=== PATIENT | female | born 1950 | race Caucasian/White ===

== ENCOUNTER 2017-04-18 18:56 | Inpatient (IN) | payer MEDICARE, BC ==
--- NOTE | 2017-04-18 21:14 | EDM.PDOC ---
[id number]: SOB Time Seen by Provider: 04/18/17 19:20 Source of Information: Reports: Patient, Family History Limitations: Reports: No Limitations - History of Present Illness INITIAL COMMENTS - FREE TEXT/NARRATIVE: 58-year-old female who was recently diagnosed with DVTs, was already on Coumadin therapy but her INR last week was only 1.0. She had an ultrasound of her lower extremities 4 days ago and was found to have DVTs and started on Lovenox. Over the past 24 hour she's become short of breath. No fevers or chills , no chest pain. She has chronic renal insufficiency. Onset: Gradual (Over the past 2 days) Location: Reports: Chest Severity: Moderate Associated Symptoms: Reports: Shortness of Breath (Especially with activity). Denies: Fever/Chills, Headaches, Nausea/Vomiting Left Lower Leg Pain Score (Numeric/FACES): 2 - Related Data Allergies Allergy/AdvReac Type Severity Reaction Status Date / Time AMOS Inhibitors AdvReac Cough Verified 04/18/17 19:24 morphine AdvReac Itching Verified 04/18/17 19:24 Home Meds: Home Meds Cyclobenzaprine [Flexeril] 10 mg PO BEDTIME 08/24/16 [History] Folic Acid 1 mg PO DAILY 08/24/16 [History] Furosemide [Lasix] 20 mg PO BID 08/24/16 [History] Hydroxyurea 1,000 mg PO ASDIRECTED 08/24/16 [History] Hydroxyurea 500 mg PO ASDIRECTED 08/24/16 [History] Levothyroxine 125 mcg PO DAILY 08/24/16 [History] Metoprolol Tartrate 100 mg PO BEDTIME 08/24/16 [History] Omeprazole 20 mg PO DAILY 08/24/16 [History] Potassium Chloride [K-Tab ER] 10 meq PO DAILY 08/24/16 [History] Warfarin [Coumadin] 2.5 mg PO ASDIRECTED 08/24/16 [History] Warfarin [Coumadin] 5 mg PO ASDIRECTED 08/24/16 [History] amLODIPine [Norvasc] 5 mg PO BEDTIME 08/24/16 [History] cloNIDine [Catapres] 0.2 mg PO Q12HR 08/24/16 [History] Aspirin [Halfprin] 81 mg PO DAILY 04/18/17 [History] Enoxaparin Sodium [Lovenox] 100 mg SQ BID 04/18/17 [History] Gabapentin [Neurontin] 600 mg PO TID 04/18/17 [History] Magnesium Gluconate [Mag-G] 500 mg PO DAILY 04/18/17 [History] Pravastatin [Pravachol] 20 mg PO BEDTIME 04/18/17 [History] traMADol HCl [Tramadol HCl] 50 mg PO Q6H PRN 04/18/17 [History] Past Medical History HEENT History: Reports: Cataract, Hard of Hearing Cardiovascular History: Reports: Blood Clots/VTE/DVT, High Cholesterol, Hypertension, Other (See Below) Other Cardiovascular History: thorasic aortic stent Respiratory History: Reports: Pneumonia, Recurrent Gastrointestinal History: Reports: Cholelithiasis, Diverticulosis, GERD, GI Bleed, Hemorrhoids Genitourinary History: Reports: Chronic Renal Insuffiency Other Genitourinary History: stress incontinence [employer] History: Reports: Musculoskeletal History: Reports: Back Pain, Chronic, Fracture Neurological History: Reports: Neuropathy, 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 Endocrine/Metabolic History: Reports: Hypothyroidism Other Hematologic History: essential thrombocytosis - Past Surgical History HEENT Surgical History: Reports: Naso-Sinus Surgery, Tonsillectomy Cardiovascular Surgical History: Reports: Vascular Surgery GI Surgical History: Reports: Cholecystectomy, Hernia Repair/Other Endocrine Surgical History: Reports: None Musculoskeletal Surgical History: Reports: Carpal Tunnel Social & Family History - Tobacco Use Smoking Status *Q: Never Smoker Second Hand Smoke Exposure: No - Caffeine Use Caffeine Use: Reports: Coffee - Recreational Drug Use Recreational Drug Use: No ED ROS GENERAL - Review of Systems Review Of Systems: See Below Constitutional: Reports: Malaise. Denies: Fever, Chills Respiratory: Reports: Shortness of Breath, Cough Cardiovascular: Denies: Chest Pain GI/Abdominal: Denies: Abdominal Pain, Nausea, Vomiting Skin: Reports: Bruising Neurological: Denies: Headache ED EXAM, GENERAL - Physical Exam Exam: See Below Exam Limited By: No Limitations General Appearance: Alert, No Apparent Distress Respiratory/Chest: No Respiratory Distress, Lungs Clear Cardiovascular: Regular Rate, Rhythm, Tachycardia GI/Abdominal: Soft, Other (Obese) Extremities: Pedal Edema (Bilaterally symmetric) Neurological: Alert, Oriented Course - Vital Signs Last Recorded V/S: Last Vital Signs Temp 99.1 F 04/18/17 19:17 Pulse 70 04/19/17 01:39 Resp 20 04/19/17 01:39 BP 130/87 04/19/17 01:39 Pulse Ox 97 04/19/17 01:39 - Orders/Labs/Meds Orders: Medication Orders Aspirin (Halfprin) 81 mg PO DAILY [facility] Cyclobenzaprine HCl (Flexeril) 10 mg PO BEDTIME [facility] Folic Acid (Folic Acid) 1 mg PO DAILY [facility] Furosemide (Lasix) 20 mg PO BID [facility] Gabapentin (Neurontin) 600 mg PO TID [facility] Hydroxyurea (Hydrea) 500 mg PO SuSa [facility] Hydroxyurea (Hydrea) 1,000 mg PO MoTuWeThFr [facility] Dextrose/Sodium Chloride (Dextrose 5%-Normal Saline) 1,000 mls @ 100 mls/hr IV ASDIRECTED [facility] Last Admin: 04/19/17 01:08 Dose: 100 mls/hr Levothyroxine Sodium (Synthroid) 100 mcg PO ACBREAKFAST [facility] Levothyroxine Sodium (Levothyroxine) 25 mcg PO ACBREAKFAST [facility] Magnesium Oxide (Magnesium Oxide) 200 mg PO DAILY [facility] Non-Formulary Medication (Metoprolol Tartrate [Metoprolol Tartrate]) 100 mg PO BEDTIME [facility] Pantoprazole Sodium (Protonix) 40 mg PO ACBREAKFAST [facility] Potassium Chloride (Potassium Chloride) 10 meq PO DAILY [facility] Pravastatin Sodium (Pravachol) 20 mg PO BEDTIME [facility] Sodium Chloride (Saline Flush) 10 ml FLUSH ASDIRECTED PRN PRN Reason: Keep Vein Open Tramadol HCl (Ultram) 50 mg PO Q6H PRN PRN Reason: Pain Last Admin: 04/19/17 01:37 Dose: 50 mg Labs: Laboratory Tests 04/18/17 04/18/17 04/18/17 Range/Units 00:11 20:05 20:05 PT 13.8 H (9.5-12.0) sec INR 1.28 H (0.80-1.20) Sodium 142 140 (140-148) mmol/L Potassium 3.6 3.8 (3.6-5.2) mmol/L Chloride 103 102 (100-108) mmol/L Carbon Dioxide 32 32 (21-32) mmol/L Anion Gap 6.9 6.5 (5.0-14.0) mmol/L BUN 22 H 22 H (7-18) mg/dL Creatinine 1.4 H 1.8 H (0.6-1.0) mg/dL Est Cr Clr Drug Dosing 34.61 26.92 mL/min Estimated GFR (MDRD) 37 L 28 L (>60) Glucose 198 H 200 H (74-106) mg/dL Calcium 8.3 L 8.6 (8.5-10.1) mg/dL Meds: Medications Generic Name Dose Route Start Last Admin Trade Name Freq PRN Reason Stop Dose Admin Aspirin 81 mg 04/19/17 09:00 Halfprin PO DAILY [facility] Cyclobenzaprine HCl 10 mg 04/19/17 21:00 Flexeril PO BEDTIME [facility] Folic Acid 1 mg 04/19/17 09:00 Folic Acid PO DAILY [facility] Furosemide 20 mg 04/19/17 09:00 Lasix PO BID [facility] Gabapentin 600 mg 04/19/17 09:00 Neurontin PO TID [facility] Hydroxyurea 500 mg 04/19/17 18:00 Hydrea PO SuSa [facility] Hydroxyurea 1,000 mg 04/20/17 18:00 Hydrea PO MoTuWeThFr [facility] Dextrose/Sodium Chloride 1,000 mls @ 100 mls/hr 04/19/17 01:00 04/19/17 01:08 Dextrose 5%-Normal Saline IV 100 mls/hr ASDIRECTED [facility] Administration Levothyroxine Sodium 100 mcg 04/19/17 07:30 Synthroid PO ACBREAKFAST [facility] Levothyroxine Sodium 25 mcg 04/19/17 07:30 Levothyroxine PO ACBREAKFAST [facility] Magnesium Oxide 200 mg 04/19/17 09:00 Magnesium Oxide PO DAILY [facility] Non-Formulary Medication 100 mg 04/19/17 21:00 Metoprolol Tartrate [Metoprolol Tartrate] PO BEDTIME [facility] Pantoprazole Sodium 40 mg 04/19/17 07:30 Protonix PO ACBREAKFAST [facility] Potassium Chloride 10 meq 04/19/17 09:00 Potassium Chloride PO DAILY [facility] Pravastatin Sodium 20 mg 04/19/17 21:00 Pravachol PO BEDTIME [facility] Sodium Chloride 10 ml 04/18/17 22:32 Saline Flush FLUSH ASDIRECTED PRN Keep Vein Open Tramadol HCl 50 mg 04/19/17 01:15 04/19/17 01:37 Ultram PO 50 mg Q6H PRN Administration Pain Discontinued Medications Generic Name Dose Route Start Last Admin Trade Name Ani PRN Reason Stop Dose Admin Enoxaparin Sodium 100 mg 04/19/17 09:00 Lovenox SUBCUT BID [facility] Warfarin Sodium 5 mg 04/18/17 22:45 Coumadin PO ASDIRECTED [facility] - Re-Assessments/Exams Free Text/Narrative Re-Assessment/Exam: 04/18/17 22:42 A BMP was obtained and confirmed that her creatinine is 1.8 and GFR around 30. We're unable to get a chest CT with IV contrast to assess for PE so I discussed her condition with Dr. Salazar her primary care provider, he agreed to admit her until her anticoagulation is complete. Departure - Departure Time of Disposition: 00:26 Disposition: Admitted As Inpatient 64 Condition: Fair Clinical Impression: Shortness of breath DVT (deep venous thrombosis) Qualifiers: DVT location: lower extremity Affected thrombotic vein of extremity: popliteal Chronicity: unspecified Laterality: bilateral Qualified Code(s): I82.433 - Acute embolism and thrombosis of popliteal vein, bilateral - Discharge Information
--- NOTE | 2017-04-18 22:20 | PCM.HP ---
H&P History of Present Illness - General Date of Service: 04/18/17 Source of Information: Patient, EMS Notes Reviewed History Limitations: Reports: No Limitations - History of Present Illness Initial Comments - Free Text/Narative: Had sudden onset of shortness of breath at noon today and become worse over the next 7 hrs. She took her pulse ox and found it to be 81% and she had a heart rate of 120. She has a history of thrombocytosis and on chemo therapy on a daily basis. She has been on Coumadin for 16 years. Yesterday her INR was 1.2 and was started on Lovenox 100mg BID SQ. She has never had a similar problem before. She also had a positive ultrasound yesterday fing a DVT in the left leg. Left Lower Leg Pain Score (Numeric/FACES): 2 Back Pain Score (Numeric/FACES): 3 - Related Data Allergies/Adverse Reactions: Allergies Allergy/AdvReac Type Severity Reaction Status Date / Time AMOS Inhibitors AdvReac Cough Verified 04/19/17 06:12 morphine AdvReac Itching Verified 04/19/17 06:12 Home Medications: Home Meds Cyclobenzaprine [Flexeril] 10 mg PO BEDTIME 08/24/16 [History] Folic Acid 1 mg PO DAILY 08/24/16 [History] Furosemide [Lasix] 20 mg PO BID 08/24/16 [History] Hydroxyurea 1,000 mg PO ASDIRECTED 08/24/16 [History] Hydroxyurea 500 mg PO ASDIRECTED 08/24/16 [History] Levothyroxine 125 mcg PO DAILY 08/24/16 [History] Metoprolol Tartrate 100 mg PO BEDTIME 08/24/16 [History] Omeprazole 20 mg PO DAILY 08/24/16 [History] Potassium Chloride [K-Tab ER] 10 meq PO DAILY 08/24/16 [History] Warfarin [Coumadin] 2.5 mg PO ASDIRECTED 08/24/16 [History] Warfarin [Coumadin] 5 mg PO ASDIRECTED 08/24/16 [History] amLODIPine [Norvasc] 5 mg PO BEDTIME 08/24/16 [History] cloNIDine [Catapres] 0.2 mg PO Q12HR 08/24/16 [History] Aspirin [Halfprin] 81 mg PO DAILY 04/18/17 [History] Enoxaparin Sodium [Lovenox] 100 mg SQ BID 04/18/17 [History] Gabapentin [Neurontin] 600 mg PO TID 04/18/17 [History] Magnesium Gluconate [Mag-G] 500 mg PO DAILY 04/18/17 [History] Pravastatin [Pravachol] 20 mg PO BEDTIME 04/18/17 [History] traMADol HCl [Tramadol HCl] 50 mg PO Q6H PRN 04/18/17 [History] Past Medical History HEENT History: Reports: Cataract, Hard of Hearing Cardiovascular History: Reports: Blood Clots/VTE/DVT, High Cholesterol, Hypertension, Other (See Below) Other Cardiovascular History: thorasic aortic stent Respiratory History: Reports: Pneumonia, Recurrent Gastrointestinal History: Reports: Cholelithiasis, Diverticulosis, GERD, GI Bleed, Hemorrhoids Genitourinary History: Reports: Chronic Renal Insuffiency Other Genitourinary History: stress incontinence [employer] History: Reports: Musculoskeletal History: Reports: Back Pain, Chronic, Fracture Neurological History: Reports: Neuropathy, 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 Endocrine/Metabolic History: Reports: Hypothyroidism Other Hematologic History: essential thrombocytosis - Past Surgical History HEENT Surgical History: Reports: Naso-Sinus Surgery, Tonsillectomy Cardiovascular Surgical History: Reports: Vascular Surgery GI Surgical History: Reports: Cholecystectomy, Hernia Repair/Other Endocrine Surgical History: Reports: None Musculoskeletal Surgical History: Reports: Carpal Tunnel Social & Family History - Tobacco Use Smoking Status *Q: Never Smoker Second Hand Smoke Exposure: No - Caffeine Use Caffeine Use: Reports: Coffee - Recreational Drug Use Recreational Drug Use: No H&P Review of Systems - Review of Systems: Review Of Systems: See Below General: Reports: Weakness HEENT: Reports: No Symptoms Pulmonary: Reports: Shortness of Breath Cardiovascular: Reports: Palpitations, Dyspnea on Exertion Gastrointestinal: Reports: No Symptoms Genitourinary: Reports: No Symptoms Musculoskeletal: Reports: No Symptoms Skin: Reports: No Symptoms Psychiatric: Reports: No Symptoms Neurological: Reports: Weakness Exam - Exam Exam: See Below - Vital Signs Vital Signs: Last Vital Signs Temp 99.1 F 04/18/17 19:17 Pulse 92 04/18/17 22:05 Resp 20 04/18/17 22:05 BP 168/73 H 04/18/17 22:05 Pulse Ox 94 L 04/18/17 22:05 Weight: 250 lb - Exam General: Alert, Oriented, 4 HEENT: PERRLA, Hearing Intact, Mucosa Moist & [place], Nares Patent, Normal Nasal Septum, Posterior Pharynx Clear, Conjunctiva Clear, EOMI, EACs Clear, TMs Clear Neck: Supple, Trachea Midline, 2 Lungs: Clear to Auscultation, Normal Respiratory Effort Cardiovascular: Regular Rate GI/Abdominal Exam: Normal Bowel Sounds, Soft, Non-Tender, No Organomegaly, No Distention, No Abnormal Bruit, No Mass, Pelvis Stable Peripheral Pulses: 1+: Radial (L), Radial (R) Skin: Warm Neuro Extensive - Mental Status: Alert, Oriented x3, Normal Mood/Affect, Normal Cognition Neuro Extensive - Motor, Sensory, Reflexes: CN II-XII Intact, Normal Gait, Normal Reflexes DTR: 1+: Bicep (L), Bicep (R) Psychiatric: Alert, Normal Affect, Normal Mood - Patient Data Lab Results Last 24 hrs: Laboratory Results - last 24 hr 04/18/17 04/18/17 Range/Units 20:05 20:05 PT 13.8 H (9.5-12.0) sec INR 1.28 H (0.80-1.20) Sodium 140 (140-148) mmol/L Potassium 3.8 (3.6-5.2) mmol/L Chloride 102 (100-108) mmol/L Carbon Dioxide 32 (21-32) mmol/L Anion Gap 6.5 (5.0-14.0) mmol/L BUN 22 H (7-18) mg/dL Creatinine 1.8 H (0.6-1.0) mg/dL Est Cr Clr Drug Dosing 26.92 mL/min Estimated GFR (MDRD) 28 L (>60) Glucose 200 H (74-106) mg/dL Calcium 8.6 (8.5-10.1) mg/dL Result Diagrams: 04/20/17 04:05 04/19/17 05:15 *Q Meaningful Use (ADM) - VTE *Q VTE Criteria *Q: - Stroke *Q Stroke Criteria *Q: - AMI *Q AMI Criteria *Q: Problem List Initiated/Reviewed/Updated: Yes Assessment/Plan Comment:: ASSESSMENT/PLAN: #1. Pulmonary Embolism/DVT left leg: We are unable to do a CT OF the long because of poor kidney function. Would consider a V_Q scan on Thursday. Also consider a [place] filter. She claims she never misses a dose of Coumadin so I am unable to explain her drop in the Coumadin negative response.. #2. Thrombocytosis. Will continue with Lovenox and Coumadin. #3. Hypertension. Will continue with her meds. #4. Hypothyroidism: Will continue with supplementation. #5. HLD: Continue meds. #6. GERD: coninue with meds. #7. Chronic renal failure: #8. Obesity
[2017-04-18] MEDS ORDERED: Sodium Chloride 0.9% 10 ML Syringe FLUSH PRN (22:32)
[2017-04-18] MEDS ORDERED: Warfarin 5 MG Tab PO SCH (22:45)
[2017-04-19] MEDS: Dextrose 5%-0.9% NaCl 1,000 ML IV SCH ×2 (01:08→11:04)
[2017-04-19] MEDS: traMADol 50 MG Tab PO PRN ×4 (01:37→23:33)
[2017-04-19] MEDS: Heparin Sodium/D5W 25,000 UNITS/500 ML BAG IV SCH (08:54)
[2017-04-19] MEDS ORDERED: Enoxaparin 100 MG/1 ML Syringe SUBCUT SCH (09:00)
[2017-04-19] MEDS ORDERED: Heparin Sodium 5,000 Units/ML Vial IVPUSH ONE (09:00)
[2017-04-19] MEDS: Folic Acid 1 MG Tab PO SCH (09:14)
[2017-04-19] MEDS: Gabapentin 300 MG Cap PO SCH ×3 (09:14→20:03)
[2017-04-19] MEDS: Magnesium Oxide 400 MG Tab PO SCH (09:14)
[2017-04-19] MEDS: Pantoprazole 40 MG Tab.CR PO SCH (09:14)
[2017-04-19] MEDS: Furosemide 20 MG Tab PO SCH ×2 (09:15→14:03)
[2017-04-19] MEDS: Levothyroxine 25 MCG Tab PO SCH (09:15)
[2017-04-19] MEDS: Aspirin 81 MG Tab.EC PO SCH (09:15)
[2017-04-19] MEDS: Potassium Chloride 10 MEQ Cap.ER PO SCH (09:15)
[2017-04-19] MEDS: Levothyroxine 100 MCG Tab PO SCH (09:15)
[2017-04-19] MEDS ORDERED: Magnesium Hydroxide 400 MG/5 ML Susp 30 ML Cup PO PRN (12:26)
[2017-04-19] MEDS ORDERED: Polyethylene Glycol 3350 Powder 17 GM Packet PO PRN (12:26)
[2017-04-19] MEDS: Warfarin 5 MG Tab PO SCH (14:03)
[2017-04-19] MEDS ORDERED: Hydroxyurea 500 MG Cap PO SCH (18:00)
[2017-04-19] MEDS: Cyclobenzaprine 10 MG Tab PO SCH (20:02)
[2017-04-19] MEDS: Metoprolol Tartrate 50 MG Tab PO SCH (20:03)
[2017-04-19] MEDS: Pravastatin 20 MG Tab PO SCH (20:05)
[2017-04-19] MEDS ORDERED: HYDROXYUREA 500 MG PO SCH (21:00)
--- NOTE | 2017-04-19 22:52 | PCM.PN ---
- General Info Date of Service: 04/19/17 Functional Status: Reports: Pain Controlled - Review of Systems General: Reports: Weakness HEENT: Reports: No Symptoms Pulmonary: Reports: Shortness of Breath Cardiovascular: Reports: No Symptoms Gastrointestinal: Reports: No Symptoms Genitourinary: Reports: No Symptoms Musculoskeletal: Reports: No Symptoms Skin: Reports: No Symptoms Neurological: Reports: No Symptoms Psychiatric: Reports: No Symptoms - Patient Data Vitals - Most Recent: Last Vital Signs Temp 98 F 04/19/17 22:10 Pulse 76 04/19/17 22:10 Resp 16 04/19/17 22:10 BP 140/72 04/19/17 22:10 Pulse Ox 92 L 04/19/17 22:10 Weight - Most Recent: 251 lb 1.6 oz I&O - Last 24 Hours: Intake & Output 04/19/17 04/19/17 04/19/17 06:59 14:59 22:59 Intake Total 854 2120 Output Total 200 1500 1350 Balance 654 -1500 770 Lab Results Last 24 Hours: Laboratory Results - last 24 hr 04/18/17 04/19/17 04/19/17 Range/Units 23:04 05:15 05:15 WBC 7.6 (4.5-11.0) K/uL RBC 3.82 (3.30-5.50) M/uL Hgb 13.9 (12.0-15.0) g/dL Hct 39.0 (36.0-48.0) % MCV 102 H (80-98) fL MCH 36 H (27-31) pg MCHC 36 (32-36) % Plt Count 331 (150-400) K/uL Neut % (Auto) 73 H (36-66) % Lymph % (Auto) 17 L (24-44) % [place] % (Auto) 7 H (2-6) % Eos % (Auto) 3 (2-4) % Baso % (Auto) 1 (0-1) % PT 14.6 H (9.5-12.0) sec INR 1.35 H (0.80-1.20) APTT (27.0-36.0) sec Sodium 141 (140-148) mmol/L Potassium 3.6 (3.6-5.2) mmol/L Chloride 104 (100-108) mmol/L Carbon Dioxide 31 (21-32) mmol/L Anion Gap 6.5 (5.0-14.0) mmol/L BUN 22 H (7-18) mg/dL Creatinine 1.5 H (0.6-1.0) mg/dL Est Cr Clr Drug Dosing 32.30 mL/min Estimated GFR (MDRD) 35 L (>60) Glucose 186 H (74-106) mg/dL Calcium 8.5 (8.5-10.1) mg/dL 04/19/17 Range/Units 15:00 WBC (4.5-11.0) K/uL RBC (3.30-5.50) M/uL Hgb (12.0-15.0) g/dL Hct (36.0-48.0) % MCV (80-98) fL MCH (27-31) pg MCHC (32-36) % Plt Count (150-400) K/uL Neut % (Auto) (36-66) % Lymph % (Auto) (24-44) % [place] % (Auto) (2-6) % Eos % (Auto) (2-4) % Baso % (Auto) (0-1) % PT (9.5-12.0) sec INR (0.80-1.20) APTT 77.0 H (27.0-36.0) sec Sodium (140-148) mmol/L Potassium (3.6-5.2) mmol/L Chloride (100-108) mmol/L Carbon Dioxide (21-32) mmol/L Anion Gap (5.0-14.0) mmol/L BUN (7-18) mg/dL Creatinine (0.6-1.0) mg/dL Est Cr Clr Drug Dosing mL/min Estimated GFR (MDRD) (>60) Glucose (74-106) mg/dL Calcium (8.5-10.1) mg/dL Med Orders - Current: Current Medications Aspirin (Halfprin) 81 mg PO DAILY [facility] Last Admin: 04/19/17 09:15 Dose: 81 mg Cyclobenzaprine HCl (Flexeril) 10 mg PO BEDTIME [facility] Last Admin: 04/19/17 20:02 Dose: 10 mg Folic Acid (Folic Acid) 1 mg PO DAILY [facility] Last Admin: 04/19/17 09:14 Dose: 1 mg Furosemide (Lasix) 20 mg PO BIDDIURETIC [facility] Last Admin: 04/19/17 14:03 Dose: 20 mg Gabapentin (Neurontin) 600 mg PO TID [facility] Last Admin: 04/19/17 20:03 Dose: 600 mg Hydroxyurea (Hydrea) 1,000 mg PO MoTuWeThFr@2100 [facility] Hydroxyurea (Hydrea) 500 mg PO SuSa@2100 [facility] Last Admin: 04/19/17 20:03 Dose: 500 mg Dextrose/Sodium Chloride (Dextrose 5%-Normal Saline) 1,000 mls @ 100 mls/hr IV ASDIRECTED [facility] Last Admin: 04/19/17 11:04 Dose: 100 mls/hr Heparin Sodium/Dextrose (Heparin 25,000 Units In D5w 500 Ml) 25,000 units in 500 mls @ 33.6 mls/hr IV TITRATE [facility]; 15 UNITS/KG/HR PRN Reason: Protocol Last Titration: 04/19/17 16:05 Dose: 13 units/kg/hr, 29.12 mls/hr Levothyroxine Sodium (Synthroid) 100 mcg PO ACBREAKFAST [facility] Last Admin: 04/19/17 09:15 Dose: 100 mcg Levothyroxine Sodium (Levothyroxine) 25 mcg PO ACBREAKFAST [facility] Last Admin: 04/19/17 09:15 Dose: 25 mcg Magnesium Hydroxide (Milk Of Magnesia) 30 ml PO DAILY PRN PRN Reason: Constipation Last Admin: 04/19/17 14:02 Dose: 30 ml Magnesium Oxide (Magnesium Oxide) 200 mg PO DAILY [facility] Last Admin: 04/19/17 09:14 Dose: 200 mg Metoprolol Tartrate (Lopressor) 100 mg PO BEDTIME [facility] Last Admin: 04/19/17 20:03 Dose: 100 mg Pantoprazole Sodium (Protonix) 40 mg PO ACBREAKFAST [facility] Last Admin: 04/19/17 09:14 Dose: 40 mg Polyethylene Glycol (Miralax) 17 gm PO DAILY PRN PRN Reason: Constipation Potassium Chloride (Potassium Chloride) 10 meq PO DAILY [facility] Last Admin: 04/19/17 09:15 Dose: 10 meq Pravastatin Sodium (Pravachol) 20 mg PO BEDTIME [facility] Last Admin: 04/19/17 20:05 Dose: 20 mg Senna/Docusate Sodium (Senna Plus) 1 tab PO BID PRN PRN Reason: Constipation Last Admin: 04/19/17 14:02 Dose: 1 tab Sodium Chloride (Saline Flush) 10 ml FLUSH ASDIRECTED PRN PRN Reason: Keep Vein Open Tramadol HCl (Ultram) 50 mg PO Q6H PRN PRN Reason: Pain Last Admin: 04/19/17 17:00 Dose: 50 mg Warfarin Sodium (Coumadin) 2.5 mg PO MoWeFr@1300 [facility] Warfarin Sodium (Coumadin) 5 mg PO SuTuThSa@1300 [facility] Last Admin: 04/19/17 14:03 Dose: 5 mg Discontinued Medications Enoxaparin Sodium (Lovenox) 100 mg SUBCUT BID [facility] Heparin Sodium (Porcine) (Heparin Sodium) 5,000 units IVPUSH ONETIME ONE Stop: 04/19/17 09:01 Last Admin: 04/19/17 08:53 Dose: 5,000 units Hydroxyurea (Hydrea) 500 mg PO SuSa [facility] Hydroxyurea (Hydrea) 1,000 mg PO MoTuWeThFr [facility] Warfarin Sodium (Coumadin) 5 mg PO ASDIRECTED [facility] - Exam General: Alert, Oriented HEENT: Pupils Equal, Pupils Reactive, EOMI, Mucous Membr. Moist/[place] Neck: Supple Lungs: Clear to Auscultation, Normal Respiratory Effort Cardiovascular: Regular Rate, Regular Rhythm Extremities: Normal Inspection, Normal Range of Motion, Non-Tender, No Pedal Edema, Normal Capillary Refill Skin: Warm, Dry, Intact Neurological: No New Focal Deficit Psy/Mental Status: Alert, Normal Affect, Normal Mood - Problem List Review Problem List Initiated/Reviewed/Updated: Yes - My Orders Last 24 Hours: My Active Orders 04/19/17 01:00 Dextrose 5%-0.9% NaCl [Dextrose 5%-Normal Saline] 1,000 ml IV ASDIRECTED 04/19/17 01:15 traMADol [Ultram] 50 mg PO Q6H PRN 04/19/17 07:30 Levothyroxine 25 mcg PO ACBREAKFAST Levothyroxine [Synthroid] 100 mcg PO ACBREAKFAST Pantoprazole [ProTONIX] 40 mg PO ACBREAKFAST 04/19/17 08:00 Furosemide [Lasix] 20 mg PO BIDDIURETIC 04/19/17 08:15 Heparin Sodium/D5W [Heparin 25,000 Units in D5W 500 ML] 25,000 units in 500 ml IV TITRATE 04/19/17 09:00 Aspirin [Halfprin] 81 mg PO DAILY Folic Acid 1 mg PO DAILY Gabapentin [Neurontin] 600 mg PO TID Magnesium Oxide 200 mg PO DAILY Potassium Chloride 10 meq PO DAILY 04/19/17 12:23 Docusate Sodium/Sennosides [Senna Plus] 1 tab PO BID PRN 04/19/17 12:26 Magnesium Hydroxide [Milk of Magnesia] 30 ml PO DAILY PRN Polyethylene Glycol 3350 [MiraLAX] 17 gm PO DAILY PRN 04/19/17 13:00 Warfarin [Coumadin] 5 mg PO SuTuThSa@1300 04/19/17 21:00 Cyclobenzaprine [Flexeril] 10 mg PO BEDTIME Hydroxyurea [Hydrea] 500 mg PO SuSa@2100 Metoprolol Tartrate [Lopressor] 100 mg PO BEDTIME Pravastatin [Pravachol] 20 mg PO BEDTIME 04/19/17 22:00 aPTT [PTT,PARTIAL THROMBOPLSTIN TIME] [COAG] Timed 04/20/17 05:11 CBC WITH AUTO DIFF [HEME] Routine INR,PT,PROTHROMBIN TIME [COAG] DAILY 04/20/17 13:00 Warfarin [Coumadin] 2.5 mg PO MoWeFr@1300 04/20/17 21:00 Hydroxyurea [Hydrea] 1,000 mg PO MoTuWeThFr@2100 04/21/17 05:11 INR,PT,PROTHROMBIN TIME [COAG] DAILY 04/22/17 05:11 INR,PT,PROTHROMBIN TIME [COAG] DAILY 04/23/17 05:11 INR,PT,PROTHROMBIN TIME [COAG] DAILY 04/24/17 05:11 INR,PT,PROTHROMBIN TIME [COAG] DAILY 04/25/17 05:11 INR,PT,PROTHROMBIN TIME [COAG] DAILY - Plan Plan:: ASSESSMENT/PLAN: #1. Pulmonary Embolism/DVT left leg: Started on Heparin and continue with warfarin #2. Thrombocytosis. Will continue with chemo. #3. Hypertension. Will continue with her meds. #4. Hypothyroidism: Will continue with supplementation. #5. HLD: Continue meds. #6. GERD: coninue with meds. #7. Chronic renal failure: #8. Obesity
[2017-04-20] MEDS: Dextrose 5%-0.9% NaCl 1,000 ML IV SCH ×2 (01:05→09:47)
[2017-04-20] MEDS: Heparin Sodium/D5W 25,000 UNITS/500 ML BAG IV SCH ×2 (02:10→18:14)
[2017-04-20] MEDS ORDERED: Heparin Sodium 5,000 Units/ML Vial IVPUSH ONE (05:03)
[2017-04-20] MEDS: Pantoprazole 40 MG Tab.CR PO SCH (07:57)
[2017-04-20] MEDS: Levothyroxine 25 MCG Tab PO SCH (07:57)
[2017-04-20] MEDS: Levothyroxine 100 MCG Tab PO SCH (07:57)
[2017-04-20] MEDS: Furosemide 20 MG Tab PO SCH ×2 (09:48→15:37)
[2017-04-20] MEDS: Potassium Chloride 10 MEQ Cap.ER PO SCH (09:48)
[2017-04-20] MEDS: Gabapentin 300 MG Cap PO SCH ×3 (09:48→20:42)
[2017-04-20] MEDS: Aspirin 81 MG Tab.EC PO SCH (09:49)
[2017-04-20] MEDS: Magnesium Oxide 400 MG Tab PO SCH (09:49)
[2017-04-20] MEDS: Folic Acid 1 MG Tab PO SCH (09:49)
[2017-04-20] MEDS ORDERED: Warfarin 2.5 MG Tab PO SCH (13:00)
[2017-04-20] MEDS ORDERED: Hydroxyurea 500 MG Cap PO SCH (18:00)
--- NOTE | 2017-04-20 18:52 | PCM.PN ---
- General Info Date of Service: 04/20/17 Functional Status: Reports: Pain Controlled - Review of Systems General: Reports: No Symptoms HEENT: Reports: No Symptoms Pulmonary: Reports: Shortness of Breath, Cough Cardiovascular: Reports: No Symptoms Gastrointestinal: Reports: No Symptoms Genitourinary: Reports: No Symptoms Musculoskeletal: Reports: No Symptoms Skin: Reports: No Symptoms Neurological: Reports: No Symptoms Psychiatric: Reports: No Symptoms - Patient Data Vitals - Most Recent: Last Vital Signs Temp 96.2 F 04/20/17 15:00 Pulse 66 04/20/17 15:00 Resp 18 04/20/17 15:00 BP 115/90 04/20/17 15:00 Pulse Ox 94 L 04/20/17 18:00 Weight - Most Recent: 250 lb 9.591 oz I&O - Last 24 Hours: Intake & Output 04/20/17 04/20/17 04/20/17 06:59 14:59 22:59 Intake Total 1117 185 9436 Output Total 550 1800 600 Balance 979 -840 1052 Lab Results Last 24 Hours: Laboratory Results - last 24 hr 04/19/17 04/20/17 04/20/17 Range/Units 22:00 04:05 04:05 WBC 5.9 (4.5-11.0) K/uL RBC 3.51 (3.30-5.50) M/uL Hgb 12.1 (12.0-15.0) g/dL Hct 36.1 (36.0-48.0) % MCV 103 H (80-98) fL MCH 35 H (27-31) pg MCHC 34 (32-36) % Plt Count 297 (150-400) K/uL Neut % (Auto) 59 (36-66) % Lymph % (Auto) 25 (24-44) % Louisa % (Auto) 10 H (2-6) % Eos % (Auto) 5 H (2-4) % Baso % (Auto) 1 (0-1) % PT 14.3 H (9.5-12.0) sec INR 1.32 H (0.80-1.20) APTT 56.2 H (27.0-36.0) sec 04/20/17 04/20/17 Range/Units 04:05 11:30 WBC (4.5-11.0) K/uL RBC (3.30-5.50) M/uL Hgb (12.0-15.0) g/dL Hct (36.0-48.0) % MCV (80-98) fL MCH (27-31) pg MCHC (32-36) % Plt Count (150-400) K/uL Neut % (Auto) (36-66) % Lymph % (Auto) (24-44) % Louisa % (Auto) (2-6) % Eos % (Auto) (2-4) % Baso % (Auto) (0-1) % PT (9.5-12.0) sec INR (0.80-1.20) APTT 42.5 H 75.6 H (27.0-36.0) sec Med Orders - Current: Current Medications Amlodipine Besylate (Norvasc) 5 mg PO DAILY [facility] Aspirin (Halfprin) 81 mg PO DAILY [facility] Last Admin: 04/20/17 09:49 Dose: 81 mg Clonidine HCl (Catapres) 0.2 mg PO Q12H [facility] Cyclobenzaprine HCl (Flexeril) 10 mg PO BEDTIME [facility] Last Admin: 04/19/17 20:02 Dose: 10 mg Folic Acid (Folic Acid) 1 mg PO DAILY [facility] Last Admin: 04/20/17 09:49 Dose: 1 mg Furosemide (Lasix) 20 mg PO BIDDIURETIC [facility] Last Admin: 04/20/17 15:37 Dose: 20 mg Gabapentin (Neurontin) 600 mg PO TID [facility] Last Admin: 04/20/17 15:37 Dose: 600 mg Hydroxyurea (Hydrea) 1,000 mg PO MoTuWeThFr@2100 [facility] Hydroxyurea (Hydrea) 500 mg PO SuSa@2100 [facility] Last Admin: 04/19/17 20:03 Dose: 500 mg Dextrose/Sodium Chloride (Dextrose 5%-Normal Saline) 1,000 mls @ 100 mls/hr IV ASDIRECTED [facility] Last Admin: 04/20/17 09:47 Dose: 100 mls/hr Heparin Sodium/Dextrose (Heparin 25,000 Units In D5w 500 Ml) 25,000 units in 500 mls @ 33.6 mls/hr IV TITRATE [facility]; 15 UNITS/KG/HR PRN Reason: Protocol Last Admin: 04/20/17 18:14 Dose: 13 units/kg/hr, 29.12 mls/hr Levothyroxine Sodium (Synthroid) 100 mcg PO ACBREAKFAST [facility] Last Admin: 04/20/17 07:57 Dose: 100 mcg Levothyroxine Sodium (Levothyroxine) 25 mcg PO ACBREAKFAST [facility] Last Admin: 04/20/17 07:57 Dose: 25 mcg Magnesium Hydroxide (Milk Of Magnesia) 30 ml PO DAILY PRN PRN Reason: Constipation Last Admin: 04/19/17 14:02 Dose: 30 ml Magnesium Oxide (Magnesium Oxide) 200 mg PO DAILY [facility] Last Admin: 04/20/17 09:49 Dose: 200 mg Metoprolol Tartrate (Lopressor) 100 mg PO BEDTIME [facility] Last Admin: 04/19/17 20:03 Dose: 100 mg Pantoprazole Sodium (Protonix) 40 mg PO ACBREAKFAST [facility] Last Admin: 04/20/17 07:57 Dose: 40 mg Polyethylene Glycol (Miralax) 17 gm PO DAILY PRN PRN Reason: Constipation Potassium Chloride (Potassium Chloride) 10 meq PO DAILY [facility] Last Admin: 04/20/17 09:48 Dose: 10 meq Pravastatin Sodium (Pravachol) 20 mg PO BEDTIME [facility] Last Admin: 04/19/17 20:05 Dose: 20 mg Senna/Docusate Sodium (Senna Plus) 1 tab PO BID PRN PRN Reason: Constipation Last Admin: 04/19/17 14:02 Dose: 1 tab Sodium Chloride (Saline Flush) 10 ml FLUSH ASDIRECTED PRN PRN Reason: Keep Vein Open Tramadol HCl (Ultram) 50 mg PO Q6H PRN PRN Reason: Pain Last Admin: 04/19/17 23:33 Dose: 50 mg Warfarin Sodium (Coumadin) 2.5 mg PO MoWeFr@1300 [facility] Last Admin: 04/20/17 13:01 Dose: 2.5 mg Warfarin Sodium (Coumadin) 5 mg PO SuTuThSa@1300 [facility] Last Admin: 04/19/17 14:03 Dose: 5 mg Discontinued Medications Enoxaparin Sodium (Lovenox) 100 mg SUBCUT BID [facility] Heparin Sodium (Porcine) (Heparin Sodium) 5,000 units IVPUSH ONETIME ONE Stop: 04/19/17 09:01 Last Admin: 04/19/17 08:53 Dose: 5,000 units Heparin Sodium (Porcine) (Heparin Sodium) 1,500 units IVPUSH ONETIME ONE Stop: 04/20/17 05:04 Last Admin: 04/20/17 05:22 Dose: 1,500 units Hydroxyurea (Hydrea) 500 mg PO SuSa [facility] Hydroxyurea (Hydrea) 1,000 mg PO MoTuWeThFr [facility] Warfarin Sodium (Coumadin) 5 mg PO ASDIRECTED [facility] - Exam General: Alert HEENT: Pupils Equal, Pupils Reactive, EOMI, Mucous Membr. Moist/[place] Neck: Supple Lungs: Clear to Auscultation, Normal Respiratory Effort Cardiovascular: Regular Rate, Regular Rhythm GI/Abdominal Exam: Normal Bowel Sounds, Soft, Non-Tender, No Organomegaly, No Distention, No Abnormal Bruit, No Mass, Pelvis Stable Extremities: Normal Inspection, Normal Range of Motion, Non-Tender, No Pedal Edema, Normal Capillary Refill Skin: Warm, Dry, Intact Psy/Mental Status: Alert, Normal Affect, Normal Mood - Problem List Review Problem List Initiated/Reviewed/Updated: Yes - My Orders Last 24 Hours: My Active Orders 04/19/17 21:00 Cyclobenzaprine [Flexeril] 10 mg PO BEDTIME Hydroxyurea [Hydrea] 500 mg PO SuSa@2100 Metoprolol Tartrate [Lopressor] 100 mg PO BEDTIME Pravastatin [Pravachol] 20 mg PO BEDTIME 04/20/17 13:00 Warfarin [Coumadin] 2.5 mg PO MoWeFr@1300 04/20/17 19:00 PTT,PARTIAL THROMBOPLSTIN TIME [COAG] Routine 04/20/17 21:00 Hydroxyurea [Hydrea] 1,000 mg PO MoTuWeThFr@2100 amLODIPine [Norvasc] 5 mg PO DAILY cloNIDine [Catapres] 0.2 mg PO Q12H 04/21/17 05:11 INR,PT,PROTHROMBIN TIME [COAG] DAILY 04/22/17 05:11 INR,PT,PROTHROMBIN TIME [COAG] DAILY 04/23/17 05:11 INR,PT,PROTHROMBIN TIME [COAG] DAILY 04/24/17 05:11 INR,PT,PROTHROMBIN TIME [COAG] DAILY 04/25/17 05:11 INR,PT,PROTHROMBIN TIME [COAG] DAILY - Plan Plan:: ASSESSMENT/PLAN: #1. Pulmonary Embolism/DVT left leg: Started on Heparin and continue with warfarin. INR 1.32 #2. Thrombocytosis. Will continue with chemo. #3. Hypertension. Will continue with her meds. #4. Hypothyroidism: Will continue with supplementation. #5. HLD: Continue meds. #6. GERD: continue with meds. #7. Chronic renal failure: stable #8. Obesity
[2017-04-20] MEDS ORDERED: Heparin Sodium 5,000 Units/ML Vial ONE (20:22)
[2017-04-20] MEDS ORDERED: Heparin Sodium 5,000 Units/ML Vial IVPUSH PRN (20:26)
[2017-04-20] MEDS: traMADol 50 MG Tab PO PRN (20:36)
[2017-04-20] MEDS: HYDROXYUREA 500 MG PO SCH (20:41)
[2017-04-20] MEDS: cloNIDine 0.1 MG Tab PO SCH (20:42)
[2017-04-20] MEDS: Metoprolol Tartrate 50 MG Tab PO SCH (20:43)
[2017-04-20] MEDS: amLODIPine 5 MG Tab PO SCH (20:44)
[2017-04-20] MEDS: Pravastatin 20 MG Tab PO SCH (20:44)
[2017-04-20] MEDS: Cyclobenzaprine 10 MG Tab PO SCH (20:44)
[2017-04-21] MEDS: traMADol 50 MG Tab PO PRN ×2 (03:36→09:23)
[2017-04-21] MEDS: Pantoprazole 40 MG Tab.CR PO SCH (07:14)
[2017-04-21] MEDS: Levothyroxine 25 MCG Tab PO SCH (07:15)
[2017-04-21] MEDS: Furosemide 20 MG Tab PO SCH ×2 (07:16→13:25)
[2017-04-21] MEDS: Levothyroxine 100 MCG Tab PO SCH (07:16)
[2017-04-21] MEDS: Dextrose 5%-0.9% NaCl 1,000 ML IV SCH ×2 (07:17→19:45)
[2017-04-21] MEDS: cloNIDine 0.1 MG Tab PO SCH ×2 (09:15→20:11)
[2017-04-21] MEDS: Folic Acid 1 MG Tab PO SCH (09:18)
[2017-04-21] MEDS: Aspirin 81 MG Tab.EC PO SCH (09:18)
[2017-04-21] MEDS: Magnesium Oxide 400 MG Tab PO SCH (09:18)
[2017-04-21] MEDS: Gabapentin 300 MG Cap PO SCH ×3 (09:19→20:12)
[2017-04-21] MEDS: amLODIPine 5 MG Tab PO SCH (09:19)
[2017-04-21] MEDS: Potassium Chloride 10 MEQ Cap.ER PO SCH (09:20)
[2017-04-21] MEDS: Warfarin 5 MG Tab PO SCH (13:24)
[2017-04-21] MEDS: Heparin Sodium/D5W 25,000 UNITS/500 ML BAG IV SCH (15:28)
[2017-04-21] MEDS ORDERED: Heparin Sodium 5,000 Units/ML Vial IVPUSH ONE (15:50)
--- NOTE | 2017-04-21 17:54 | PCM.PN ---
- General Info Date of Service: 04/21/17 Functional Status: Reports: Pain Controlled - Review of Systems General: Reports: Weakness HEENT: Reports: No Symptoms Pulmonary: Reports: Shortness of Breath Cardiovascular: Reports: No Symptoms Gastrointestinal: Reports: No Symptoms Genitourinary: Reports: No Symptoms Musculoskeletal: Reports: No Symptoms Skin: Reports: No Symptoms Neurological: Reports: No Symptoms Psychiatric: Reports: No Symptoms - Patient Data Vitals - Most Recent: Last Vital Signs Temp 96.9 F 04/21/17 15:00 Pulse 69 04/21/17 15:00 Resp 18 04/21/17 15:00 BP 131/77 04/21/17 15:00 Pulse Ox 99 04/21/17 15:00 Weight - Most Recent: 250 lb 9.591 oz I&O - Last 24 Hours: Intake & Output 04/21/17 04/21/17 04/21/17 06:59 14:59 22:59 Intake Total 1873 840 Output Total 375 2000 Balance 1498 -1160 Lab Results Last 24 Hours: Laboratory Results - last 24 hr 04/20/17 04/21/17 04/21/17 Range/Units 19:00 02:30 02:30 PT 16.1 H (9.5-12.0) sec INR 1.48 H (0.80-1.20) APTT 49.7 H 74.8 H (27.0-36.0) sec 04/21/17 04/21/17 Range/Units 09:04 14:28 PT (9.5-12.0) sec INR (0.80-1.20) APTT 65.4 H 30.6 (27.0-36.0) sec Med Orders - Current: Current Medications Amlodipine Besylate (Norvasc) 5 mg PO DAILY [facility] Last Admin: 04/21/17 09:19 Dose: 5 mg Aspirin (Halfprin) 81 mg PO DAILY [facility] Last Admin: 04/21/17 09:18 Dose: 81 mg Clonidine HCl (Catapres) 0.2 mg PO Q12H [facility] Last Admin: 04/21/17 09:15 Dose: 0.2 mg Cyclobenzaprine HCl (Flexeril) 10 mg PO BEDTIME [facility] Last Admin: 04/20/17 20:44 Dose: 10 mg Folic Acid (Folic Acid) 1 mg PO DAILY [facility] Last Admin: 04/21/17 09:18 Dose: 1 mg Furosemide (Lasix) 20 mg PO BIDDIURETIC [facility] Last Admin: 04/21/17 13:25 Dose: 20 mg Gabapentin (Neurontin) 600 mg PO TID [facility] Last Admin: 04/21/17 13:25 Dose: 600 mg Hydroxyurea (Hydrea) 1,000 mg PO MoTuWeThFr@2100 [facility] Last Admin: 04/20/17 20:41 Dose: 1,000 mg Hydroxyurea (Hydrea) 500 mg PO SuSa@2100 [facility] Last Admin: 04/19/17 20:03 Dose: 500 mg Dextrose/Sodium Chloride (Dextrose 5%-Normal Saline) 1,000 mls @ 100 mls/hr IV ASDIRECTED [facility] Last Admin: 04/21/17 07:17 Dose: 100 mls/hr Heparin Sodium/Dextrose (Heparin 25,000 Units In D5w 500 Ml) 25,000 units in 500 mls @ 33.6 mls/hr IV TITRATE [facility]; 15 UNITS/KG/HR PRN Reason: Protocol Last Admin: 04/21/17 15:28 Dose: 17 units/kg/hr, 38.08 mls/hr Levothyroxine Sodium (Synthroid) 100 mcg PO ACBREAKFAST [facility] Last Admin: 04/21/17 07:16 Dose: 100 mcg Levothyroxine Sodium (Levothyroxine) 25 mcg PO ACBREAKFAST [facility] Last Admin: 04/21/17 07:15 Dose: 25 mcg Magnesium Hydroxide (Milk Of Magnesia) 30 ml PO DAILY PRN PRN Reason: Constipation Last Admin: 04/19/17 14:02 Dose: 30 ml Magnesium Oxide (Magnesium Oxide) 200 mg PO DAILY [facility] Last Admin: 04/21/17 09:18 Dose: 200 mg Metoprolol Tartrate (Lopressor) 100 mg PO BEDTIME [facility] Last Admin: 04/20/17 20:43 Dose: 100 mg Pantoprazole Sodium (Protonix) 40 mg PO ACBREAKFAST [facility] Last Admin: 04/21/17 07:14 Dose: 40 mg Polyethylene Glycol (Miralax) 17 gm PO DAILY PRN PRN Reason: Constipation Potassium Chloride (Potassium Chloride) 10 meq PO DAILY [facility] Last Admin: 04/21/17 09:20 Dose: 10 meq Pravastatin Sodium (Pravachol) 20 mg PO BEDTIME [facility] Last Admin: 04/20/17 20:44 Dose: 20 mg Senna/Docusate Sodium (Senna Plus) 1 tab PO BID PRN PRN Reason: Constipation Last Admin: 04/19/17 14:02 Dose: 1 tab Sodium Chloride (Saline Flush) 10 ml FLUSH ASDIRECTED PRN PRN Reason: Keep Vein Open Tramadol HCl (Ultram) 50 mg PO Q6H PRN PRN Reason: Pain Last Admin: 04/21/17 09:23 Dose: 50 mg Warfarin Sodium (Coumadin) 2.5 mg PO MoWeFr@1300 [facility] Last Admin: 04/20/17 13:01 Dose: 2.5 mg Warfarin Sodium (Coumadin) 5 mg PO SuTuThSa@1300 [facility] Last Admin: 04/21/17 13:24 Dose: 5 mg Discontinued Medications Enoxaparin Sodium (Lovenox) 100 mg SUBCUT BID [facility] Heparin Sodium (Porcine) (Heparin Sodium) 5,000 units IVPUSH ONETIME ONE Stop: 04/19/17 09:01 Last Admin: 04/19/17 08:53 Dose: 5,000 units Heparin Sodium (Porcine) (Heparin Sodium) 1,500 units IVPUSH ONETIME ONE Stop: 04/20/17 05:04 Last Admin: 04/20/17 05:22 Dose: 1,500 units Heparin Sodium (Porcine) (Heparin Sodium) Confirm Administered Dose 5,000 units .ROUTE .STK-MED ONE Stop: 04/20/17 20:23 Last Admin: 04/20/17 20:44 Dose: Not Given Heparin Sodium (Porcine) (Heparin Sodium) 1,500 units IVPUSH .BOLUS PRN PRN Reason: Other Last Admin: 04/20/17 20:34 Dose: 1,500 units Heparin Sodium (Porcine) (Heparin Sodium) 2,500 units IVPUSH .BOLUS ONE Stop: 04/21/17 15:51 Last Admin: 04/21/17 15:47 Dose: 2,500 units Hydroxyurea (Hydrea) 500 mg PO SuSa [facility] Hydroxyurea (Hydrea) 1,000 mg PO MoTuWeThFr [facility] Warfarin Sodium (Coumadin) 5 mg PO ASDIRECTED [facility] - Exam General: Alert, Oriented HEENT: Pupils Equal, Pupils Reactive, EOMI, Mucous Membr. Moist/[place] Neck: Supple Lungs: Clear to Auscultation, Normal Respiratory Effort Cardiovascular: Regular Rate, Regular Rhythm GI/Abdominal Exam: Normal Bowel Sounds, Soft, Non-Tender, No Organomegaly, No Distention, No Abnormal Bruit, No Mass, Pelvis Stable Extremities: Normal Inspection, Normal Range of Motion, Non-Tender, No Pedal Edema, Normal Capillary Refill Peripheral Pulses: 1+: Radial (L), Radial (R) Skin: Warm, Dry, Intact Neurological: No New Focal Deficit Psy/Mental Status: Alert, Normal Affect, Normal Mood - Problem List Review Problem List Initiated/Reviewed/Updated: Yes - My Orders Last 24 Hours: My Active Orders 04/20/17 21:00 Hydroxyurea [Hydrea] 1,000 mg PO MoTuWeThFr@2100 amLODIPine [Norvasc] 5 mg PO DAILY cloNIDine [Catapres] 0.2 mg PO Q12H 04/21/17 21:30 aPTT [PTT,PARTIAL THROMBOPLSTIN TIME] [COAG] Routine 04/22/17 05:11 INR,PT,PROTHROMBIN TIME [COAG] DAILY 04/23/17 05:11 INR,PT,PROTHROMBIN TIME [COAG] DAILY 04/24/17 05:11 INR,PT,PROTHROMBIN TIME [COAG] DAILY 04/25/17 05:11 INR,PT,PROTHROMBIN TIME [COAG] DAILY - Plan Plan:: ASSESSMENT/PLAN: #1. Pulmonary Embolism/DVT left leg: Started on Heparin and continue with warfarin. INR 1.48 #2. Thrombocytosis. Will continue with chemo. #3. Hypertension. Will continue with her meds. #4. Hypothyroidism: Will continue with supplementation. #5. HLD: Continue meds. #6. GERD: continue with meds. #7. Chronic renal failure: stable #8. Obesity
[2017-04-21] MEDS: Pravastatin 20 MG Tab PO SCH (20:12)
[2017-04-21] MEDS: HYDROXYUREA 500 MG PO SCH (20:13)
[2017-04-21] MEDS: Metoprolol Tartrate 50 MG Tab PO SCH (20:13)
[2017-04-21] MEDS: Cyclobenzaprine 10 MG Tab PO SCH (20:17)
[2017-04-22] MEDS: Heparin Sodium/D5W 25,000 UNITS/500 ML BAG IV SCH ×2 (06:11→22:03)
[2017-04-22] MEDS: Furosemide 20 MG Tab PO SCH ×2 (07:38→14:45)
[2017-04-22] MEDS: Levothyroxine 25 MCG Tab PO SCH (07:38)
[2017-04-22] MEDS: Levothyroxine 100 MCG Tab PO SCH (07:39)
[2017-04-22] MEDS: Pantoprazole 40 MG Tab.CR PO SCH (07:39)
[2017-04-22] MEDS: amLODIPine 5 MG Tab PO SCH (08:35)
[2017-04-22] MEDS: Aspirin 81 MG Tab.EC PO SCH (08:36)
[2017-04-22] MEDS: cloNIDine 0.1 MG Tab PO SCH ×2 (08:36→21:15)
[2017-04-22] MEDS: Magnesium Oxide 400 MG Tab PO SCH (08:36)
[2017-04-22] MEDS: Folic Acid 1 MG Tab PO SCH (08:37)
[2017-04-22] MEDS: Gabapentin 300 MG Cap PO SCH ×3 (08:37→21:15)
[2017-04-22] MEDS: Potassium Chloride 10 MEQ Cap.ER PO SCH (08:37)
[2017-04-22] MEDS ORDERED: Warfarin 2.5 MG Tab PO ONE (11:00)
[2017-04-22] MEDS: Dextrose 5%-0.9% NaCl 1,000 ML IV SCH (17:12)
--- NOTE | 2017-04-22 17:40 | PCM.PN ---
- General Info Date of Service: 04/22/17 Functional Status: Reports: Pain Controlled - Review of Systems General: Reports: Weakness HEENT: Reports: No Symptoms Pulmonary: Reports: Shortness of Breath Cardiovascular: Reports: No Symptoms Gastrointestinal: Reports: No Symptoms Genitourinary: Reports: No Symptoms Musculoskeletal: Reports: No Symptoms Skin: Reports: No Symptoms Neurological: Reports: No Symptoms Psychiatric: Reports: No Symptoms - Patient Data Vitals - Most Recent: Last Vital Signs Temp 96.3 F 04/22/17 15:12 Pulse 62 04/22/17 15:12 Resp 20 04/22/17 15:12 BP 136/71 04/22/17 15:12 Pulse Ox 97 04/22/17 15:12 Weight - Most Recent: 253 lb 3.2 oz I&O - Last 24 Hours: Intake & Output 04/22/17 04/22/17 04/22/17 06:59 14:59 22:59 Intake Total 1928 660 Output Total 1000 1351 Balance 928 -691 Lab Results Last 24 Hours: Laboratory Results - last 24 hr 04/21/17 04/22/17 04/22/17 Range/Units 21:30 04:10 04:10 PT 14.1 H (9.5-12.0) sec INR 1.30 H (0.80-1.20) APTT 86.1 H 63.0 H (27.0-36.0) sec 04/22/17 Range/Units 10:00 PT (9.5-12.0) sec INR (0.80-1.20) APTT 67.2 H (27.0-36.0) sec Med Orders - Current: Current Medications Amlodipine Besylate (Norvasc) 5 mg PO DAILY [facility] Last Admin: 04/22/17 08:35 Dose: 5 mg Aspirin (Halfprin) 81 mg PO DAILY [facility] Last Admin: 04/22/17 08:36 Dose: 81 mg Clonidine HCl (Catapres) 0.2 mg PO Q12H [facility] Last Admin: 04/22/17 08:36 Dose: 0.2 mg Cyclobenzaprine HCl (Flexeril) 10 mg PO BEDTIME [facility] Last Admin: 04/21/17 20:17 Dose: 10 mg Folic Acid (Folic Acid) 1 mg PO DAILY [facility] Last Admin: 04/22/17 08:37 Dose: 1 mg Furosemide (Lasix) 20 mg PO BIDDIURETIC [facility] Last Admin: 04/22/17 14:45 Dose: 20 mg Gabapentin (Neurontin) 600 mg PO TID [facility] Last Admin: 04/22/17 14:45 Dose: 600 mg Hydroxyurea (Hydrea) 1,000 mg PO MoTuWeThFr@2100 [facility] Last Admin: 04/21/17 20:13 Dose: 1,000 mg Hydroxyurea (Hydrea) 500 mg PO SuSa@2100 [facility] Last Admin: 04/19/17 20:03 Dose: 500 mg Dextrose/Sodium Chloride (Dextrose 5%-Normal Saline) 1,000 mls @ 100 mls/hr IV ASDIRECTED [facility] Last Admin: 04/22/17 17:12 Dose: 100 mls/hr Heparin Sodium/Dextrose (Heparin 25,000 Units In D5w 500 Ml) 25,000 units in 500 mls @ 33.6 mls/hr IV TITRATE [facility]; 15 UNITS/KG/HR PRN Reason: Protocol Last Titration: 04/22/17 10:37 Dose: 15 units/kg/hr, 33.6 mls/hr Levothyroxine Sodium (Synthroid) 100 mcg PO ACBREAKFAST [facility] Last Admin: 04/22/17 07:39 Dose: 100 mcg Levothyroxine Sodium (Levothyroxine) 25 mcg PO ACBREAKFAST [facility] Last Admin: 04/22/17 07:38 Dose: 25 mcg Magnesium Hydroxide (Milk Of Magnesia) 30 ml PO DAILY PRN PRN Reason: Constipation Last Admin: 04/19/17 14:02 Dose: 30 ml Magnesium Oxide (Magnesium Oxide) 200 mg PO DAILY [facility] Last Admin: 04/22/17 08:36 Dose: 200 mg Metoprolol Tartrate (Lopressor) 100 mg PO BEDTIME [facility] Last Admin: 04/21/17 20:13 Dose: 100 mg Pantoprazole Sodium (Protonix) 40 mg PO ACBREAKFAST [facility] Last Admin: 04/22/17 07:39 Dose: 40 mg Polyethylene Glycol (Miralax) 17 gm PO DAILY PRN PRN Reason: Constipation Potassium Chloride (Potassium Chloride) 10 meq PO DAILY [facility] Last Admin: 04/22/17 08:37 Dose: 10 meq Pravastatin Sodium (Pravachol) 20 mg PO BEDTIME [facility] Last Admin: 04/21/17 20:12 Dose: 20 mg Senna/Docusate Sodium (Senna Plus) 1 tab PO BID PRN PRN Reason: Constipation Last Admin: 04/19/17 14:02 Dose: 1 tab Sodium Chloride (Saline Flush) 10 ml FLUSH ASDIRECTED PRN PRN Reason: Keep Vein Open Tramadol HCl (Ultram) 50 mg PO Q6H PRN PRN Reason: Pain Last Admin: 04/21/17 09:23 Dose: 50 mg Discontinued Medications Enoxaparin Sodium (Lovenox) 100 mg SUBCUT BID [facility] Heparin Sodium (Porcine) (Heparin Sodium) 5,000 units IVPUSH ONETIME ONE Stop: 04/19/17 09:01 Last Admin: 04/19/17 08:53 Dose: 5,000 units Heparin Sodium (Porcine) (Heparin Sodium) 1,500 units IVPUSH ONETIME ONE Stop: 04/20/17 05:04 Last Admin: 04/20/17 05:22 Dose: 1,500 units Heparin Sodium (Porcine) (Heparin Sodium) Confirm Administered Dose 5,000 units .ROUTE .STK-MED ONE Stop: 04/20/17 20:23 Last Admin: 04/20/17 20:44 Dose: Not Given Heparin Sodium (Porcine) (Heparin Sodium) 1,500 units IVPUSH .BOLUS PRN PRN Reason: Other Last Admin: 04/20/17 20:34 Dose: 1,500 units Heparin Sodium (Porcine) (Heparin Sodium) 2,500 units IVPUSH .BOLUS ONE Stop: 04/21/17 15:51 Last Admin: 04/21/17 15:47 Dose: 2,500 units Hydroxyurea (Hydrea) 500 mg PO SuSa [facility] Hydroxyurea (Hydrea) 1,000 mg PO MoTuWeThFr [facility] Warfarin Sodium (Coumadin) 5 mg PO ASDIRECTED [facility] Warfarin Sodium (Coumadin) 2.5 mg PO MoWeFr@1300 [facility] Last Admin: 04/20/17 13:01 Dose: 2.5 mg Warfarin Sodium (Coumadin) 5 mg PO SuTuThSa@1300 [facility] Last Admin: 04/21/17 13:24 Dose: 5 mg Warfarin Sodium (Coumadin) 7.5 mg PO ONETIME ONE Stop: 04/22/17 11:01 Last Admin: 04/22/17 11:01 Dose: 7.5 mg - Exam General: Alert, Oriented HEENT: Pupils Equal, Pupils Reactive, EOMI, Mucous Membr. Moist/[place] Neck: Supple Lungs: Clear to Auscultation, Normal Respiratory Effort Cardiovascular: Regular Rate, Regular Rhythm Extremities: Normal Inspection, Normal Range of Motion, Non-Tender, No Pedal Edema, Normal Capillary Refill - Problem List Review Problem List Initiated/Reviewed/Updated: Yes - My Orders Last 24 Hours: My Active Orders 04/23/17 05:11 INR,PT,PROTHROMBIN TIME [COAG] DAILY 04/24/17 05:11 INR,PT,PROTHROMBIN TIME [COAG] DAILY 04/25/17 05:11 INR,PT,PROTHROMBIN TIME [COAG] DAILY - Plan Plan:: ASSESSMENT/PLAN: #1. Pulmonary Embolism/DVT left leg: Started on Heparin and continue with warfarin. INR 1.3 today have given her 7.5 mg today #2. Thrombocytosis. Will continue with chemo. #3. Hypertension. Will continue with her meds. BPO good control. #4. Hypothyroidism: Will continue with supplementation. #5. HLD: Continue meds. #6. GERD: continue with meds. #7. Chronic renal failure: stable #8. Obesity
[2017-04-22] MEDS: Metoprolol Tartrate 50 MG Tab PO SCH (21:15)
[2017-04-22] MEDS: HYDROXYUREA 500 MG PO SCH (21:16)
[2017-04-22] MEDS: Pravastatin 20 MG Tab PO SCH (21:16)
[2017-04-22] MEDS: Cyclobenzaprine 10 MG Tab PO SCH (21:22)
[2017-04-22] MEDS: traMADol 50 MG Tab PO PRN (21:22)
[2017-04-23] MEDS: Dextrose 5%-0.9% NaCl 1,000 ML IV SCH (03:20)
[2017-04-23] MEDS: traMADol 50 MG Tab PO PRN ×2 (04:20→19:43)
[2017-04-23] MEDS: Furosemide 20 MG Tab PO SCH ×2 (07:05→14:56)
[2017-04-23] MEDS: Pantoprazole 40 MG Tab.CR PO SCH (07:06)
[2017-04-23] MEDS: Levothyroxine 100 MCG Tab PO SCH (07:06)
[2017-04-23] MEDS: Levothyroxine 25 MCG Tab PO SCH (07:07)
[2017-04-23] MEDS: cloNIDine 0.1 MG Tab PO SCH ×2 (08:47→22:08)
[2017-04-23] MEDS: Gabapentin 300 MG Cap PO SCH ×3 (08:48→22:09)
[2017-04-23] MEDS: Potassium Chloride 10 MEQ Cap.ER PO SCH (08:48)
[2017-04-23] MEDS: Folic Acid 1 MG Tab PO SCH (08:48)
[2017-04-23] MEDS: Aspirin 81 MG Tab.EC PO SCH (08:48)
[2017-04-23] MEDS: Magnesium Oxide 400 MG Tab PO SCH (08:49)
[2017-04-23] MEDS: amLODIPine 5 MG Tab PO SCH (08:49)
[2017-04-23] MEDS ORDERED: Warfarin 2.5 MG Tab PO ONE (09:00)
[2017-04-23] MEDS: Heparin Sodium/D5W 25,000 UNITS/500 ML BAG IV SCH (11:32)
--- NOTE | 2017-04-23 20:22 | PCM.PN ---
- General Info Date of Service: 04/23/17 Functional Status: Reports: Pain Controlled - Review of Systems General: Reports: No Symptoms HEENT: Reports: No Symptoms Pulmonary: Reports: Shortness of Breath Cardiovascular: Reports: No Symptoms Gastrointestinal: Reports: No Symptoms Genitourinary: Reports: No Symptoms Musculoskeletal: Reports: No Symptoms Skin: Reports: No Symptoms Neurological: Reports: No Symptoms Psychiatric: Reports: No Symptoms - Patient Data Vitals - Most Recent: Last Vital Signs Temp 97.4 F 04/23/17 19:08 Pulse 93 04/23/17 19:08 Resp 16 04/23/17 19:08 BP 132/105 H 04/23/17 19:08 Pulse Ox 95 04/23/17 19:40 Weight - Most Recent: 254 lb 11.2 oz I&O - Last 24 Hours: Intake & Output 04/23/17 04/23/17 04/23/17 06:59 14:59 22:59 Intake Total 1155 877 3224 Output Total 1700 3900 Balance -199 900 -1859 Lab Results Last 24 Hours: Laboratory Results - last 24 hr 04/23/17 04/23/17 Range/Units 04:38 06:00 PT 12.9 H (9.5-12.0) sec INR 1.20 (0.80-1.20) APTT 61.7 H (27.0-36.0) sec Med Orders - Current: Current Medications Amlodipine Besylate (Norvasc) 5 mg PO DAILY [facility] Last Admin: 04/23/17 08:49 Dose: 5 mg Aspirin (Halfprin) 81 mg PO DAILY [facility] Last Admin: 04/23/17 08:48 Dose: 81 mg Clonidine HCl (Catapres) 0.2 mg PO Q12H [facility] Last Admin: 04/23/17 08:47 Dose: 0.2 mg Cyclobenzaprine HCl (Flexeril) 10 mg PO BEDTIME [facility] Last Admin: 04/22/17 21:22 Dose: 10 mg Folic Acid (Folic Acid) 1 mg PO DAILY [facility] Last Admin: 04/23/17 08:48 Dose: 1 mg Furosemide (Lasix) 20 mg PO BIDDIURETIC [facility] Last Admin: 04/23/17 14:56 Dose: 20 mg Gabapentin (Neurontin) 600 mg PO TID [facility] Last Admin: 04/23/17 14:55 Dose: 600 mg Hydroxyurea (Hydrea) 1,000 mg PO MoTuWeThFr@2100 [facility] Last Admin: 04/22/17 21:16 Dose: 1,000 mg Hydroxyurea (Hydrea) 500 mg PO SuSa@2100 [facility] Last Admin: 04/19/17 20:03 Dose: 500 mg Dextrose/Sodium Chloride (Dextrose 5%-Normal Saline) 1,000 mls @ 100 mls/hr IV ASDIRECTED [facility] Last Admin: 04/23/17 03:20 Dose: 100 mls/hr Heparin Sodium/Dextrose (Heparin 25,000 Units In D5w 500 Ml) 25,000 units in 500 mls @ 33.6 mls/hr IV TITRATE CALI; 15 UNITS/KG/HR PRN Reason: Protocol Last Admin: 04/23/17 11:32 Dose: 15 units/kg/hr, 33.6 mls/hr Levothyroxine Sodium (Synthroid) 100 mcg PO ACBREAKFAST [facility] Last Admin: 04/23/17 07:06 Dose: 100 mcg Levothyroxine Sodium (Levothyroxine) 25 mcg PO ACBREAKFAST [facility] Last Admin: 04/23/17 07:07 Dose: 25 mcg Magnesium Hydroxide (Milk Of Magnesia) 30 ml PO DAILY PRN PRN Reason: Constipation Last Admin: 04/19/17 14:02 Dose: 30 ml Magnesium Oxide (Magnesium Oxide) 200 mg PO DAILY [facility] Last Admin: 04/23/17 08:49 Dose: 200 mg Metoprolol Tartrate (Lopressor) 100 mg PO BEDTIME [facility] Last Admin: 04/22/17 21:15 Dose: 100 mg Pantoprazole Sodium (Protonix) 40 mg PO ACBREAKFAST [facility] Last Admin: 04/23/17 07:06 Dose: 40 mg Polyethylene Glycol (Miralax) 17 gm PO DAILY PRN PRN Reason: Constipation Potassium Chloride (Potassium Chloride) 10 meq PO DAILY [facility] Last Admin: 04/23/17 08:48 Dose: 10 meq Pravastatin Sodium (Pravachol) 20 mg PO BEDTIME [facility] Last Admin: 04/22/17 21:16 Dose: 20 mg Senna/Docusate Sodium (Senna Plus) 1 tab PO BID PRN PRN Reason: Constipation Last Admin: 04/19/17 14:02 Dose: 1 tab Sodium Chloride (Saline Flush) 10 ml FLUSH ASDIRECTED PRN PRN Reason: Keep Vein Open Tramadol HCl (Ultram) 50 mg PO Q6H PRN PRN Reason: Pain Last Admin: 04/23/17 19:43 Dose: 50 mg Discontinued Medications Enoxaparin Sodium (Lovenox) 100 mg SUBCUT BID [facility] Heparin Sodium (Porcine) (Heparin Sodium) 5,000 units IVPUSH ONETIME ONE Stop: 04/19/17 09:01 Last Admin: 04/19/17 08:53 Dose: 5,000 units Heparin Sodium (Porcine) (Heparin Sodium) 1,500 units IVPUSH ONETIME ONE Stop: 04/20/17 05:04 Last Admin: 04/20/17 05:22 Dose: 1,500 units Heparin Sodium (Porcine) (Heparin Sodium) Confirm Administered Dose 5,000 units .ROUTE .STK-MED ONE Stop: 04/20/17 20:23 Last Admin: 04/20/17 20:44 Dose: Not Given Heparin Sodium (Porcine) (Heparin Sodium) 1,500 units IVPUSH .BOLUS PRN PRN Reason: Other Last Admin: 04/20/17 20:34 Dose: 1,500 units Heparin Sodium (Porcine) (Heparin Sodium) 2,500 units IVPUSH .BOLUS ONE Stop: 04/21/17 15:51 Last Admin: 04/21/17 15:47 Dose: 2,500 units Hydroxyurea (Hydrea) 500 mg PO SuSa [facility] Hydroxyurea (Hydrea) 1,000 mg PO MoTuWeThFr [facility] Warfarin Sodium (Coumadin) 5 mg PO ASDIRECTED [facility] Warfarin Sodium (Coumadin) 2.5 mg PO MoWeFr@1300 [facility] Last Admin: 04/20/17 13:01 Dose: 2.5 mg Warfarin Sodium (Coumadin) 5 mg PO SuTuThSa@1300 [facility] Last Admin: 04/21/17 13:24 Dose: 5 mg Warfarin Sodium (Coumadin) 7.5 mg PO ONETIME ONE Stop: 04/22/17 11:01 Last Admin: 04/22/17 11:01 Dose: 7.5 mg Warfarin Sodium (Coumadin) 7.5 mg PO ONETIME ONE Stop: 04/23/17 09:01 Last Admin: 04/23/17 08:48 Dose: 7.5 mg - Exam General: Alert, Oriented Lungs: Clear to Auscultation, Normal Respiratory Effort Cardiovascular: Regular Rate, Regular Rhythm GI/Abdominal Exam: Normal Bowel Sounds, Soft, Non-Tender, No Organomegaly, No Distention, No Abnormal Bruit, No Mass, Pelvis Stable Extremities: Normal Inspection, Normal Range of Motion, Non-Tender, No Pedal Edema, Normal Capillary Refill - Problem List Review Problem List Initiated/Reviewed/Updated: Yes - My Orders Last 24 Hours: My Active Orders 04/24/17 05:00 INR,PT,PROTHROMBIN TIME [COAG] DAILY PTT,PARTIAL THROMBOPLSTIN TIME [COAG] Timed 04/24/17 05:11 BASIC METABOLIC PANEL,BMP [CHEM] Routine CBC WITH AUTO DIFF [HEME] Routine 04/25/17 05:00 INR,PT,PROTHROMBIN TIME [COAG] DAILY 04/26/17 05:00 INR,PT,PROTHROMBIN TIME [COAG] DAILY 04/27/17 05:00 INR,PT,PROTHROMBIN TIME [COAG] DAILY 04/28/17 05:00 INR,PT,PROTHROMBIN TIME [COAG] DAILY 04/29/17 05:00 INR,PT,PROTHROMBIN TIME [COAG] DAILY 04/30/17 05:00 INR,PT,PROTHROMBIN TIME [COAG] DAILY 05/01/17 05:00 INR,PT,PROTHROMBIN TIME [COAG] DAILY 05/02/17 05:00 INR,PT,PROTHROMBIN TIME [COAG] DAILY 05/03/17 05:00 INR,PT,PROTHROMBIN TIME [COAG] DAILY - Plan Plan:: ASSESSMENT/PLAN: #1. Pulmonary Embolism/DVT left leg: She is better as far as SOB but INR is still low. #2. Thrombocytosis. Will continue with Lovenox and Coumadin. #3. Hypertension. Will continue with her meds. #4. Hypothyroidism: Will continue with supplementation. #5. HLD: Continue meds. #6. GERD: coninue with meds. #7. Chronic renal failure: #8. Obesity
[2017-04-23] MEDS: Cyclobenzaprine 10 MG Tab PO SCH (22:08)
[2017-04-23] MEDS: HYDROXYUREA 500 MG PO SCH (22:09)
[2017-04-23] MEDS: Metoprolol Tartrate 50 MG Tab PO SCH (22:09)
[2017-04-23] MEDS: Pravastatin 20 MG Tab PO SCH (22:09)
[2017-04-24] MEDS: Dextrose 5%-0.9% NaCl 1,000 ML IV SCH (00:28)
[2017-04-24] MEDS: Heparin Sodium/D5W 25,000 UNITS/500 ML BAG IV SCH (04:45)
[2017-04-24] MEDS ORDERED: Heparin Sodium 5,000 Units/ML Vial IVPUSH ONE (05:35)
[2017-04-24] MEDS ORDERED: Heparin Sodium 5,000 Units/ML Vial ONE (05:42)
[2017-04-24] MEDS: Levothyroxine 25 MCG Tab PO SCH (07:17)
[2017-04-24] MEDS: Levothyroxine 100 MCG Tab PO SCH (07:18)
[2017-04-24] MEDS: Pantoprazole 40 MG Tab.CR PO SCH (07:19)
[2017-04-24] MEDS: Furosemide 20 MG Tab PO SCH (07:19)
[2017-04-24] MEDS: Gabapentin 300 MG Cap PO SCH (08:04)
[2017-04-24] MEDS: Magnesium Oxide 400 MG Tab PO SCH (08:05)
[2017-04-24] MEDS: Aspirin 81 MG Tab.EC PO SCH (08:05)
[2017-04-24] MEDS: Folic Acid 1 MG Tab PO SCH (08:05)
[2017-04-24] MEDS: Potassium Chloride 10 MEQ Cap.ER PO SCH (08:06)
[2017-04-24] MEDS: amLODIPine 5 MG Tab PO SCH (08:18)
[2017-04-24] MEDS: cloNIDine 0.1 MG Tab PO SCH (08:18)
[2017-04-24 08:19] VITALS: BP 131/61
--- NOTE | 2017-04-24 08:21 | PCM.PN ---
- General Info Date of Service: 04/24/17 Functional Status: Reports: Pain Controlled - Review of Systems General: Reports: Weakness Pulmonary: Reports: Shortness of Breath Cardiovascular: Reports: No Symptoms Gastrointestinal: Reports: No Symptoms Genitourinary: Reports: No Symptoms Musculoskeletal: Reports: No Symptoms Skin: Reports: No Symptoms Neurological: Reports: No Symptoms Psychiatric: Reports: No Symptoms - Patient Data Vitals - Most Recent: Last Vital Signs Temp 96.3 F 04/24/17 04:00 Pulse 56 L 04/24/17 04:00 Resp 18 04/24/17 04:00 BP 101/66 04/24/17 04:00 Pulse Ox 95 04/24/17 07:35 Weight - Most Recent: 251 lb 3 oz I&O - Last 24 Hours: Intake & Output 04/23/17 04/24/17 04/24/17 22:59 06:59 14:59 Intake Total 2041 1481 Output Total 4800 1450 Balance -2759 31 Lab Results Last 24 Hours: Laboratory Results - last 24 hr 04/24/17 04/24/17 04/24/17 Range/Units 04:51 04:51 04:51 WBC 6.6 (4.5-11.0) K/uL RBC 3.36 (3.30-5.50) M/uL Hgb 11.6 L (12.0-15.0) g/dL Hct 35.2 L (36.0-48.0) % MCV 105 H (80-98) fL MCH 35 H (27-31) pg MCHC 33 (32-36) % Plt Count 425 H (150-400) K/uL Neut % (Auto) 62 (36-66) % Lymph % (Auto) 25 (24-44) % [place] % (Auto) 9 H (2-6) % Eos % (Auto) 4 (2-4) % Baso % (Auto) 1 (0-1) % PT 14.4 H (9.5-12.0) sec INR 1.33 H (0.80-1.20) APTT 35.2 (27.0-36.0) sec Sodium 140 (140-148) mmol/L Potassium 3.8 (3.6-5.2) mmol/L Chloride 102 (100-108) mmol/L Carbon Dioxide 32 (21-32) mmol/L Anion Gap 6.4 (5.0-14.0) mmol/L BUN 23 H (7-18) mg/dL Creatinine 1.3 H (0.6-1.0) mg/dL Est Cr Clr Drug Dosing 37.21 mL/min Estimated GFR (MDRD) 41 L (>60) Glucose 155 H (74-106) mg/dL Calcium 8.4 L (8.5-10.1) mg/dL Med Orders - Current: Current Medications Amlodipine Besylate (Norvasc) 5 mg PO DAILY [facility] Last Admin: 04/23/17 08:49 Dose: 5 mg Aspirin (Halfprin) 81 mg PO DAILY [facility] Last Admin: 04/24/17 08:05 Dose: 81 mg Clonidine HCl (Catapres) 0.2 mg PO Q12H [facility] Last Admin: 04/23/17 22:08 Dose: 0.2 mg Cyclobenzaprine HCl (Flexeril) 10 mg PO BEDTIME [facility] Last Admin: 04/23/17 22:08 Dose: 10 mg Folic Acid (Folic Acid) 1 mg PO DAILY [facility] Last Admin: 04/24/17 08:05 Dose: 1 mg Furosemide (Lasix) 20 mg PO BIDDIURETIC [facility] Last Admin: 04/24/17 07:19 Dose: 20 mg Gabapentin (Neurontin) 600 mg PO TID [facility] Last Admin: 04/24/17 08:04 Dose: 600 mg Hydroxyurea (Hydrea) 1,000 mg PO MoTuWeThFr@2100 [facility] Last Admin: 04/23/17 22:09 Dose: 1,000 mg Hydroxyurea (Hydrea) 500 mg PO SuSa@2100 [facility] Last Admin: 04/19/17 20:03 Dose: 500 mg Dextrose/Sodium Chloride (Dextrose 5%-Normal Saline) 1,000 mls @ 100 mls/hr IV ASDIRECTED [facility] Last Admin: 04/24/17 00:28 Dose: 100 mls/hr Heparin Sodium/Dextrose (Heparin 25,000 Units In D5w 500 Ml) 25,000 units in 500 mls @ 33.6 mls/hr IV TITRATE CALI; 15 UNITS/KG/HR PRN Reason: Protocol Last Titration: 04/24/17 05:46 Dose: 17 units/kg/hr, 38.08 mls/hr Levothyroxine Sodium (Synthroid) 100 mcg PO ACBREAKFAST [facility] Last Admin: 04/24/17 07:18 Dose: 100 mcg Levothyroxine Sodium (Levothyroxine) 25 mcg PO ACBREAKFAST [facility] Last Admin: 04/24/17 07:17 Dose: 25 mcg Magnesium Hydroxide (Milk Of Magnesia) 30 ml PO DAILY PRN PRN Reason: Constipation Last Admin: 04/19/17 14:02 Dose: 30 ml Magnesium Oxide (Magnesium Oxide) 200 mg PO DAILY [facility] Last Admin: 04/24/17 08:05 Dose: 200 mg Metoprolol Tartrate (Lopressor) 100 mg PO BEDTIME [facility] Last Admin: 04/23/17 22:09 Dose: 100 mg Pantoprazole Sodium (Protonix) 40 mg PO ACBREAKFAST [facility] Last Admin: 04/24/17 07:19 Dose: 40 mg Polyethylene Glycol (Miralax) 17 gm PO DAILY PRN PRN Reason: Constipation Potassium Chloride (Potassium Chloride) 10 meq PO DAILY [facility] Last Admin: 04/24/17 08:06 Dose: 10 meq Pravastatin Sodium (Pravachol) 20 mg PO BEDTIME [facility] Last Admin: 04/23/17 22:09 Dose: 20 mg Senna/Docusate Sodium (Senna Plus) 1 tab PO BID PRN PRN Reason: Constipation Last Admin: 04/19/17 14:02 Dose: 1 tab Sodium Chloride (Saline Flush) 10 ml FLUSH ASDIRECTED PRN PRN Reason: Keep Vein Open Tramadol HCl (Ultram) 50 mg PO Q6H PRN PRN Reason: Pain Last Admin: 04/23/17 19:43 Dose: 50 mg Discontinued Medications Enoxaparin Sodium (Lovenox) 100 mg SUBCUT BID [facility] Heparin Sodium (Porcine) (Heparin Sodium) 5,000 units IVPUSH ONETIME ONE Stop: 04/19/17 09:01 Last Admin: 04/19/17 08:53 Dose: 5,000 units Heparin Sodium (Porcine) (Heparin Sodium) 1,500 units IVPUSH ONETIME ONE Stop: 04/20/17 05:04 Last Admin: 04/20/17 05:22 Dose: 1,500 units Heparin Sodium (Porcine) (Heparin Sodium) Confirm Administered Dose 5,000 units .ROUTE .STK-MED ONE Stop: 04/20/17 20:23 Last Admin: 04/20/17 20:44 Dose: Not Given Heparin Sodium (Porcine) (Heparin Sodium) 1,500 units IVPUSH .BOLUS PRN PRN Reason: Other Last Admin: 04/20/17 20:34 Dose: 1,500 units Heparin Sodium (Porcine) (Heparin Sodium) 2,500 units IVPUSH .BOLUS ONE Stop: 04/21/17 15:51 Last Admin: 04/21/17 15:47 Dose: 2,500 units Heparin Sodium (Porcine) (Heparin Sodium) 1,500 units IVPUSH .BOLUS ONE Stop: 04/24/17 05:36 Last Admin: 04/24/17 05:46 Dose: 1,500 units Heparin Sodium (Porcine) (Heparin Sodium) Confirm Administered Dose 5,000 units .ROUTE .STK-MED ONE Stop: 04/24/17 05:43 Last Admin: 04/24/17 05:45 Dose: Not Given Hydroxyurea (Hydrea) 500 mg PO SuSa [facility] Hydroxyurea (Hydrea) 1,000 mg PO MoTuWeThFr [facility] Warfarin Sodium (Coumadin) 5 mg PO ASDIRECTED [facility] Warfarin Sodium (Coumadin) 2.5 mg PO MoWeFr@1300 [facility] Last Admin: 04/20/17 13:01 Dose: 2.5 mg Warfarin Sodium (Coumadin) 5 mg PO SuTuThSa@1300 [facility] Last Admin: 04/21/17 13:24 Dose: 5 mg Warfarin Sodium (Coumadin) 7.5 mg PO ONETIME ONE Stop: 04/22/17 11:01 Last Admin: 04/22/17 11:01 Dose: 7.5 mg Warfarin Sodium (Coumadin) 7.5 mg PO ONETIME ONE Stop: 04/23/17 09:01 Last Admin: 04/23/17 08:48 Dose: 7.5 mg - Exam General: Alert, Oriented HEENT: Pupils Equal, Pupils Reactive, EOMI, Mucous Membr. Moist/[place] Neck: Supple Lungs: Clear to Auscultation, Normal Respiratory Effort Cardiovascular: Regular Rate, Regular Rhythm GI/Abdominal Exam: Normal Bowel Sounds, Soft, Non-Tender, No Organomegaly, No Distention, No Abnormal Bruit, No Mass, Pelvis Stable Back Exam: Normal Inspection, Full Range of Motion Extremities: Normal Inspection, Normal Range of Motion, Non-Tender, No Pedal Edema, Normal Capillary Refill Peripheral Pulses: 1+: Radial (L), Radial (R) Skin: Warm, Dry, Intact Neurological: No New Focal Deficit Psy/Mental Status: Alert, Normal Affect, Normal Mood - Problem List Review Problem List Initiated/Reviewed/Updated: Yes - My Orders Last 24 Hours: My Active Orders 04/24/17 10:00 PTT,PARTIAL THROMBOPLSTIN TIME [COAG] Routine 04/25/17 05:00 INR,PT,PROTHROMBIN TIME [COAG] DAILY 04/26/17 05:00 INR,PT,PROTHROMBIN TIME [COAG] DAILY 04/27/17 05:00 INR,PT,PROTHROMBIN TIME [COAG] DAILY 04/28/17 05:00 INR,PT,PROTHROMBIN TIME [COAG] DAILY 04/29/17 05:00 INR,PT,PROTHROMBIN TIME [COAG] DAILY 04/30/17 05:00 INR,PT,PROTHROMBIN TIME [COAG] DAILY 05/01/17 05:00 INR,PT,PROTHROMBIN TIME [COAG] DAILY 05/02/17 05:00 INR,PT,PROTHROMBIN TIME [COAG] DAILY 05/03/17 05:00 INR,PT,PROTHROMBIN TIME [COAG] DAILY - Plan Plan:: ASSESSMENT/PLAN: #1. Pulmonary Embolism/DVT left leg: INR still low at 1.3. She must not be absorbing the warfarin. I called Dr. Vásquez her household refrigeration mechanic and he was gone then spoke with Dr. Jones who felt comfortable with using Xeralto 15mg for 21 days then 20mg daily and not give Warfarin. She will go home on oxygen. #2. Thrombocytosis. Will continue with chemotherapy #3. Hypertension. Will continue with her meds. #4. Hypothyroidism: Will continue with supplementation. #5. HLD: Continue meds. #6. GERD: coninue with meds. #7. Chronic renal failure: #8. Obesity
--- NOTE | 2017-04-24 08:32 | PCM.DCSUM1 ---
Discharge Summary - Hospital Course Brief History: Had sudden onset of shortness of breath at noon the day of admission and become worse over the next 7 hrs. She took her pulse ox and found it to be 81% and she had a heart rate of 120. She has a history of thrombocytosis and on chemo therapy on a daily basis. She has been on Coumadin for 16 years. Yesterday her INR was 1.2 and was started on Lovenox 100mg BID SQ. She has never had a similar problem before. She also had a positive ultrasound yesterday showing a DVT in the left leg. - Discharge Data Discharge Date: 04/24/17 Discharge Disposition: Home, Self-Care 01 Condition: Stable - Patient Summary/Data Hospital Course: She was started on Heparin and increased the Coumadin up to 7.5mg daily without a change in the INR of any significance. She had been on coumadin for 16 years at 2.5 days/week and 5mg 3 days/week recently. INR was 1 initially. She developed a PE on Lovenox and Coumadin. She is being discharged on Xarelto 15 mg bid for 3 weeks then reduce to 20 mg daily. She will go home on oxygen. - Patient Instructions Diet: Heart Healthy Diet Activity: As Tolerated - Discharge Plan Prescriptions/Med Rec: Rivaroxaban [Xarelto] 15 mg PO BID 21 Days Home Medications: Home Meds Cyclobenzaprine [Flexeril] 10 mg PO BEDTIME 08/24/16 [History] Folic Acid 1 mg PO DAILY 08/24/16 [History] Furosemide [Lasix] 20 mg PO BID 08/24/16 [History] Hydroxyurea 1,000 mg PO ASDIRECTED 08/24/16 [History] Hydroxyurea 500 mg PO ASDIRECTED 08/24/16 [History] Levothyroxine 125 mcg PO DAILY 08/24/16 [History] Metoprolol Tartrate 100 mg PO BEDTIME 08/24/16 [History] Omeprazole 20 mg PO DAILY 08/24/16 [History] Potassium Chloride [K-Tab ER] 10 meq PO DAILY 08/24/16 [History] Warfarin [Coumadin] 2.5 mg PO ASDIRECTED 08/24/16 [History] Warfarin [Coumadin] 5 mg PO ASDIRECTED 08/24/16 [History] amLODIPine [Norvasc] 5 mg PO BEDTIME 08/24/16 [History] cloNIDine [Catapres] 0.2 mg PO Q12HR 08/24/16 [History] Aspirin [Halfprin] 81 mg PO DAILY 04/18/17 [History] Enoxaparin Sodium [Lovenox] 100 mg SQ BID 04/18/17 [History] Gabapentin [Neurontin] 600 mg PO TID 04/18/17 [History] Magnesium Gluconate [Mag-G] 500 mg PO DAILY 04/18/17 [History] Pravastatin [Pravachol] 20 mg PO BEDTIME 04/18/17 [History] traMADol HCl [Tramadol HCl] 50 mg PO Q6H PRN 04/18/17 [History] Rivaroxaban [Xarelto] 15 mg PO BID 21 Days 04/24/17 [Rx] Patient Handouts: Venous Thromboembolism Forms: ED Department Discharge Referrals: Dutch Salazar Sr, MD [Primary Care Provider] - - Discharge Summary/Plan Comment DC Time >30 min.: Yes Discharge Summary/Plan Comment: ASSESSMENT/PLAN: #1. Pulmonary Embolism/DVT left leg: INR still low at 1.3. She must not be absorbing the warfarin. I called Dr. Vásquez her executive casino host and he was gone then spoke with Dr. Jones who felt comfortable with using Xeralto 15mg for 21 days then 20mg daily and not give Warfarin. She will go home on oxygen. #2. Thrombocytosis. Will continue with chemotherapy #3. Hypertension. Will continue with her meds. #4. Hypothyroidism: Will continue with supplementation. #5. HLD: Continue meds. #6. GERD: coninue with meds. #7. Chronic renal failure: #8. Obesity - General Info Functional Status: Reports: Pain Controlled - Review of Systems General: Reports: Weakness HEENT: Reports: No Symptoms Pulmonary: Reports: Shortness of Breath Cardiovascular: Reports: No Symptoms Gastrointestinal: Reports: No Symptoms Genitourinary: Reports: No Symptoms Musculoskeletal: Reports: No Symptoms Skin: Reports: No Symptoms Neurological: Reports: No Symptoms Psychiatric: Reports: No Symptoms - Patient Data Vitals - Most Recent: Last Vital Signs Temp 96.3 F 04/24/17 08:00 Pulse 64 04/24/17 08:00 Resp 18 04/24/17 08:00 BP 131/61 04/24/17 08:18 Pulse Ox 94 L 07/28/17 08:00 Weight - Most Recent: 251 lb 3 oz I&O - Last 24 hours: Intake & Output 04/23/17 04/24/17 04/24/17 22:59 06:59 14:59 Intake Total 2041 1481 Output Total 4800 1450 Balance -2759 31 Lab Results - Last 24 hrs: Laboratory Results - last 24 hr 04/24/17 04/24/17 04/24/17 Range/Units 04:51 04:51 04:51 WBC 6.6 (4.5-11.0) K/uL RBC 3.36 (3.30-5.50) M/uL Hgb 11.6 L (12.0-15.0) g/dL Hct 35.2 L (36.0-48.0) % MCV 105 H (80-98) fL MCH 35 H (27-31) pg MCHC 33 (32-36) % Plt Count 425 H (150-400) K/uL Neut % (Auto) 62 (36-66) % Lymph % (Auto) 25 (24-44) % [place] % (Auto) 9 H (2-6) % Eos % (Auto) 4 (2-4) % Baso % (Auto) 1 (0-1) % PT 14.4 H (9.5-12.0) sec INR 1.33 H (0.80-1.20) APTT 35.2 (27.0-36.0) sec Sodium 140 (140-148) mmol/L Potassium 3.8 (3.6-5.2) mmol/L Chloride 102 (100-108) mmol/L Carbon Dioxide 32 (21-32) mmol/L Anion Gap 6.4 (5.0-14.0) mmol/L BUN 23 H (7-18) mg/dL Creatinine 1.3 H (0.6-1.0) mg/dL Est Cr Clr Drug Dosing 37.21 mL/min Estimated GFR (MDRD) 41 L (>60) Glucose 155 H (74-106) mg/dL Calcium 8.4 L (8.5-10.1) mg/dL Med Orders - Current: Current Medications Amlodipine Besylate (Norvasc) 5 mg PO DAILY [facility] Last Admin: 04/24/17 08:18 Dose: 5 mg Aspirin (Halfprin) [address] [facility] Last Admin: 04/24/17 08:05 Dose: 81 mg Clonidine HCl (Catapres) 0.2 mg PO Q12H [facility] Last Admin: 04/24/17 08:18 Dose: 0.2 mg Cyclobenzaprine HCl (Flexeril) [address] [facility] Last Admin: 04/23/17 22:08 Dose: 10 mg Folic Acid (Folic Acid) 1 mg PO DAILY [facility] Last Admin: 04/24/17 08:05 Dose: 1 mg Furosemide (Lasix) 20 mg PO BIDDIURETIC [facility] Last Admin: 04/24/17 07:19 Dose: 20 mg Gabapentin (Neurontin) [address] [facility] Last Admin: 04/24/17 08:04 Dose: 600 mg Hydroxyurea (Hydrea) 1,000 mg PO MoTuWeThFr@2100 [facility] Last Admin: 04/23/17 22:09 Dose: 1,000 mg Hydroxyurea (Hydrea) 500 mg PO SuSa@2100 [facility] Last Admin: 04/19/17 20:03 Dose: 500 mg Dextrose/Sodium Chloride (Dextrose 5%-Normal Saline) 1,000 mls @ 100 mls/hr IV ASDIRECTED [facility] Last Admin: 04/24/17 00:28 Dose: 100 mls/hr Heparin Sodium/Dextrose (Heparin 25,000 Units In D5w 500 Ml) 25,000 units in 500 mls @ 33.6 mls/hr IV TITRATE [facility]; 15 UNITS/KG/HR PRN Reason: Protocol Last Titration: 04/24/17 05:46 Dose: 17 units/kg/hr, 38.08 mls/hr Levothyroxine Sodium (Synthroid) 100 mcg PO ACBREAKFAST [facility] Last Admin: 04/24/17 07:18 Dose: 100 mcg Levothyroxine Sodium (Levothyroxine) [address] [facility] Last Admin: 04/24/17 07:17 Dose: 25 mcg Magnesium Hydroxide (Milk Of Magnesia) 30 ml PO DAILY PRN PRN Reason: Constipation Last Admin: 04/19/17 14:02 Dose: 30 ml Magnesium Oxide (Magnesium Oxide) [address] [facility] Last Admin: 04/24/17 08:05 Dose: 200 mg Metoprolol Tartrate (Lopressor) 100 mg PO BEDTIME [facility] Last Admin: 04/23/17 22:09 Dose: 100 mg Pantoprazole Sodium (Protonix) [address] [facility] Last Admin: 04/24/17 07:19 Dose: 40 mg Polyethylene Glycol (Miralax) 17 gm PO DAILY PRN PRN Reason: Constipation Potassium Chloride (Potassium Chloride) [address] [facility] Last Admin: 04/24/17 08:06 Dose: 10 meq Pravastatin Sodium (Pravachol) [address] [facility] Last Admin: 04/23/17 22:09 Dose: 20 mg Senna/Docusate Sodium (Senna Plus) 1 tab PO BID PRN PRN Reason: Constipation Last Admin: 04/19/17 14:02 Dose: 1 tab Sodium Chloride (Saline Flush) 10 ml FLUSH ASDIRECTED PRN PRN Reason: Keep Vein Open Tramadol HCl (Ultram) 50 mg PO Q6H PRN PRN Reason: Pain Last Admin: 04/23/17 19:43 Dose: 50 mg Discontinued Medications Enoxaparin Sodium (Lovenox) [address] [facility] Heparin Sodium (Porcine) (Heparin Sodium) 5,000 units IVPUSH ONETIME ONE Stop: 04/19/17 09:01 Last Admin: 04/19/17 08:53 Dose: 5,000 units Heparin Sodium (Porcine) (Heparin Sodium) 1,500 units IVPUSH ONETIME ONE Stop: 04/20/17 05:04 Last Admin: 04/20/17 05:22 Dose: 1,500 units Heparin Sodium (Porcine) (Heparin Sodium) Confirm Administered Dose 5,000 units .ROUTE .STK-MED ONE Stop: 04/20/17 20:23 Last Admin: 04/20/17 20:44 Dose: Not Given Heparin Sodium (Porcine) (Heparin Sodium) 1,500 units IVPUSH .BOLUS PRN PRN Reason: Other Last Admin: 04/20/17 20:34 Dose: 1,500 units Heparin Sodium (Porcine) (Heparin Sodium) 2,500 units IVPUSH .BOLUS ONE Stop: 04/21/17 15:51 Last Admin: 04/21/17 15:47 Dose: 2,500 units Heparin Sodium (Porcine) (Heparin Sodium) 1,500 units IVPUSH .BOLUS ONE Stop: 04/24/17 05:36 Last Admin: 04/24/17 05:46 Dose: 1,500 units Heparin Sodium (Porcine) (Heparin Sodium) Confirm Administered Dose 5,000 units .ROUTE .STK-MED ONE Stop: 04/24/17 05:43 Last Admin: 04/24/17 05:45 Dose: Not Given Hydroxyurea (Hydrea) [address] [facility] Hydroxyurea (Hydrea) 1,[address] [facility] Warfarin Sodium (Coumadin) 5 mg PO ASDIRECTED [facility] Warfarin Sodium (Coumadin) 2.5 mg PO MoWeFr@1300 [facility] Last Admin: 04/20/17 13:01 Dose: 2.5 mg Warfarin Sodium (Coumadin) 5 mg PO SuTuThSa@1300 [facility] Last Admin: 04/21/17 13:24 Dose: 5 mg Warfarin Sodium (Coumadin) 7.5 mg PO ONETIME ONE Stop: 04/22/17 11:01 Last Admin: 04/22/17 11:01 Dose: 7.5 mg Warfarin Sodium (Coumadin) 7.5 mg PO ONETIME ONE Stop: 04/23/17 09:01 Last Admin: 04/23/17 08:48 Dose: 7.5 mg - Exam General: Reports: Alert, Oriented HEENT: Reports: Pupils Equal, Pupils Reactive, EOMI, Mucous Membr. Moist/[place] Neck: Reports: Supple Lungs: Reports: Clear to Auscultation, Normal Respiratory Effort Cardiovascular: Reports: Regular Rate, Regular Rhythm GI/Abdominal Exam: Normal Bowel Sounds, Soft, Non-Tender, No Organomegaly, No Distention, No Abnormal Bruit, No Mass, Pelvis Stable Back Exam: Reports: Normal Inspection, Full Range of Motion Extremities: Normal Inspection, Normal Range of Motion, Non-Tender, No Pedal Edema, Normal Capillary Refill Skin: Reports: Warm, Dry, Intact Neurological: Reports: No New Focal Deficit Psy/Mental Status: Reports: Alert, Normal Affect, Normal Mood *Q Meaningful Use (DIS) - VTE *Q VTE Criteria *Q: - Stroke *Q Stroke Criteria *Q: - AMI *Q AMI Criteria *Q:
[2017-04-24] MEDS ORDERED: Rivaroxaban 15 MG Tab PO ONE (10:00)
== END 2017-04-24 13:00 | disposition home or self-care (01) | DRG 176 ==
LOC: JP.ED 18:56 → JP.MS 22:32
PROVIDERS: ADMIT Internal Medicine; ATTEND Internal Medicine
DX: I26.99 Other pulmonary embolism without acute cor pulmonale (principal); I82.402 Acute embolism and thrombosis of unspecified deep veins of left lower extremity; Z68.41 Body mass index [BMI] 40.0-44.9, adult; I12.9 Hypertensive chronic kidney disease with stage 1 through stage 4 chronic kidney disease, or unspecified chronic kidney disease; N18.9 Chronic kidney disease, unspecified; E03.9 Hypothyroidism, unspecified; E66.9 Obesity, unspecified; Z99.81 Dependence on supplemental oxygen; D47.3 Essential (hemorrhagic) thrombocythemia; M54.9 Dorsalgia, unspecified; G89.29 Other chronic pain; K21.9 Gastro-esophageal reflux disease without esophagitis; E78.5 Hyperlipidemia, unspecified; Z86.718 Personal history of other venous thrombosis and embolism; Z87.01 Personal history of pneumonia (recurrent); H91.90 Unspecified hearing loss, unspecified ear; Z79.82 Long term (current) use of aspirin; Z79.01 Long term (current) use of anticoagulants; Z88.5 Allergy status to narcotic agent; Z88.8 Allergy status to other drugs, medicaments and biological substances; Z92.21 Personal history of antineoplastic chemotherapy
CPT/HCPCS: 36415; 80048; 85025; 85610; 85730; 94762; 99284; 99285; A9270-GY; J1644

== ENCOUNTER 2018-06-20 12:00 | Emergency (ER) | payer MEDICARE, BC ==
--- NOTE | 2018-06-20 12:57 | EDM.PDOC ---
ED HPI GENERAL MEDICAL PROBLEM - General Chief Complaint: Gastrointestinal Problem Stated Complaint: STOMACH PAIN Time Seen by Provider: 06/20/18 12:41 Source of Information: Reports: Patient, RN Notes Reviewed History Limitations: Reports: No Limitations - History of Present Illness INITIAL COMMENTS - FREE TEXT/NARRATIVE: 67-year-old female presents to the emergency department today complaint of abdominal pain, she states she has not had a bowel movement in over 5 days did try stool softeners without success. She states she is still passing gas does have a history of hernia repair as well as cholecystectomy. Denies any other symptoms Left Lower Abdomen Pain Score (Numeric/FACES): 2 - Related Data Allergies Allergy/AdvReac Type Severity Reaction Status Date / Time AMOS Inhibitors AdvReac Cough Verified 06/20/18 12:30 morphine AdvReac Itching Verified 06/20/18 12:30 Home Meds: Home Meds Cyclobenzaprine [Flexeril] 10 mg PO BEDTIME 08/24/16 [History] Folic Acid 1 mg PO DAILY 08/24/16 [History] Furosemide [Lasix] 20 mg PO BID 08/24/16 [History] Hydroxyurea 1,000 mg PO ASDIRECTED 08/24/16 [History] Hydroxyurea 500 mg PO ASDIRECTED 08/24/16 [History] Levothyroxine 125 mcg PO DAILY 08/24/16 [History] Metoprolol Tartrate 100 mg PO BEDTIME 08/24/16 [History] Omeprazole 20 mg PO DAILY 08/24/16 [History] Potassium Chloride [K-Tab ER] 10 meq PO DAILY 08/24/16 [History] amLODIPine [Norvasc] 5 mg PO BEDTIME 08/24/16 [History] cloNIDine [Catapres] 0.2 mg PO Q12HR 08/24/16 [History] Gabapentin [Neurontin] 600 mg PO TID 04/18/17 [History] Magnesium Gluconate [Mag-G] 500 mg PO DAILY 04/18/17 [History] Pravastatin [Pravachol] 20 mg PO BEDTIME 04/18/17 [History] traMADol HCl [Tramadol HCl] 50 mg PO Q6H PRN 04/18/17 [History] Past Medical History HEENT History: Reports: Cataract, Hard of Hearing Cardiovascular History: Reports: Blood Clots/VTE/DVT, High Cholesterol, Hypertension, Other (See Below) Other Cardiovascular History: thorasic aortic stent Respiratory History: Reports: Pneumonia, Recurrent Gastrointestinal History: Reports: Cholelithiasis, Chronic Constipation, Diverticulosis, GERD, GI Bleed, Hemorrhoids Genitourinary History: Reports: Chronic Renal Insuffiency Other Genitourinary History: stress incontinence [employer] [place] History: Reports: Musculoskeletal History: Reports: Back Pain, Chronic, Fracture, Other (See Below ) Other Musculoskeletal History: bilat knee pain Neurological History: Reports: Neuropathy, 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 Endocrine/Metabolic History: Reports: Hypothyroidism, Obesity/BMI 30+ Hematologic History: Reports: Blood Transfusion(s), Other (See Below) Other Hematologic History: essential thrombocytosis - Infectious Disease History Infectious Disease History: Reports: Chicken Pox, Measles, Shingles - Past Surgical History Head Surgeries/Procedures: Reports: None HEENT Surgical History: Reports: Cataract Surgery, Naso-Sinus Surgery, Tonsillectomy Cardiovascular Surgical History: Reports: Vascular Surgery Respiratory Surgical History: Reports: None GI Surgical History: Reports: Cholecystectomy, Colonoscopy, Hernia Repair/Other Female Surgical History: Reports: None Endocrine Surgical History: Reports: None Neurological Surgical History: Reports: None Musculoskeletal Surgical History: Reports: Carpal Tunnel Dermatological Surgical History: Reports: None Social & Family History - Tobacco Use Smoking Status *Q: Never Smoker Second Hand Smoke Exposure: No - Caffeine Use Caffeine Use: Reports: Coffee Caffeine Use Comment: 1 cup of coffee daily - Recreational Drug Use Recreational Drug Use: No ED ROS GENERAL - Review of Systems Review Of Systems: See Below Constitutional: Reports: No Symptoms Respiratory: Reports: No Symptoms Cardiovascular: Reports: No Symptoms GI/Abdominal: Reports: Abdominal Pain. Denies: Nausea, Vomiting : Reports: No Symptoms Musculoskeletal: Reports: No Symptoms ED EXAM, GI/ABD - Physical Exam Exam: See Below Exam Limited By: No Limitations General Appearance: Alert, WD/WN, No Apparent Distress Respiratory/Chest: No Respiratory Distress, Lungs Clear, Normal Breath Sounds, No Accessory Muscle Use, Chest Non-Tender Cardiovascular: Regular Rate, Rhythm, No Murmur GI/Abdominal Exam: Normal Bowel Sounds, Soft, Distended, Tender (Left lower quadrant) Course - Vital Signs Last Recorded V/S: Last Vital Signs Temp 99.2 F 06/20/18 15:17 Pulse 80 09/23/18 15:17 Resp 16 06/20/18 15:17 BP 128/77 06/20/18 15:17 Pulse Ox 97 06/20/18 15:17 - Orders/Labs/Meds Orders: Active Orders 24 hr Category Date Time Status Enema [RC] ASDIRECTED Care 06/20/18 13:58 Active Abdomen 1V Upright [CR] Stat Exams 06/20/18 12:55 Taken Meds: Medications Discontinued Medications Generic Name Dose Route Start Last Admin Trade Name Ani PRN Reason Stop Dose Admin Polyethylene Glycol 238 gm 06/20/18 13:57 06/20/18 14:26 Miralax PO 06/20/18 13:58 238 gm ONETIME ONE Administration Departure - Departure Time of Disposition: 17:35 Disposition: Home, Self-Care 01 Condition: Good Clinical Impression: Functional constipation - Discharge Information Referrals: Dutch Salazar Sr, MD [Primary Care Provider] - Forms: ED Department Discharge Additional Instructions: Please followup with your primary care provider in 3-5 days if not better, please call return to the emergency department with worsening of symptoms. - My Orders Last 24 Hours: My Active Orders 06/20/18 12:55 Abdomen 1V Upright [CR] Stat 06/20/18 13:58 Enema [RC] ASDIRECTED - Assessment/Plan Last 24 Hours: My Active Orders 06/20/18 12:55 Abdomen 1V Upright [CR] Stat 06/20/18 13:58 Enema [RC] ASDIRECTED Plan: Assessment Acuity = acute Site and laterality = functional constipation Etiology = slow transit time Manifestations = none Location of injury = Home Lab values = plain film of the abdomen does show large amount stool Plan She had good success with one bottle of MiraLAX and Gatorade colonoscopy prep as well as 2 enemas, plan is discharge home follow-up primary care 3-5 days if no improvement This note was dictated using [employer] voice recognition software please call with any questions on syntax or grammar.
[2018-06-20] MEDS ORDERED: Polyethylene Glycol 3350 Powder 238 GM Bot PO ONE (13:57)
[2018-06-20 15:18] VITALS: BP 128/77
--- NOTE | 2018-06-21 09:22 | CR ---
Abdomen 1V Upright CLINICAL HISTORY: Left lower quadrant pain FINDINGS: Study is limited due to patient body habitus. The no free air is identified. Small intestin al gas pattern is nonacute. There is moderate fecal retention. Patient has upper aortic stent. IMPRESSION: Limited study Moderate fecal retention Nonacute intestinal gas pattern
== END 2018-06-20 18:01 | disposition home or self-care (01) ==
LOC: JP.ED 12:00
DX: K59.04 Chronic idiopathic constipation (principal); I12.9 Hypertensive chronic kidney disease with stage 1 through stage 4 chronic kidney disease, or unspecified chronic kidney disease; N18.9 Chronic kidney disease, unspecified; E78.00 Pure hypercholesterolemia, unspecified; E03.9 Hypothyroidism, unspecified; Z79.899 Other long term (current) drug therapy; Z88.5 Allergy status to narcotic agent; Z88.8 Allergy status to other drugs, medicaments and biological substances
CPT/HCPCS: 74018; 99284; A9270; 99283

== ENCOUNTER 2019-01-03 19:30 | Inpatient (IN) | payer MEDICARE ==
[2019-01-03] MEDS ORDERED: Sodium Chloride 0.9% 10 ML Syringe FLUSH PRN (19:49)
[2019-01-03] MEDS ORDERED: Sodium Chloride 0.9% 1,000 ML IV SCH (20:00)
--- NOTE | 2019-01-03 20:39 | CRLCT ---
INDICATION: New onset confusion. TECHNIQUE: CT head without contrast. COMPARISON: None. FINDINGS: CSF spaces: Within normal limits for age. Brain parenchyma: There is an asymmetric area of low attenuation in the left posterior parietal deep white matter as demonstrated on series 2, image 28. No other signs of edema, mass or hemorrhage. No midline shift. -white matter distinction is otherwise intact. Skull base and calvarium: The visualized paranasal sinuses and mastoid air cells demonstrate no acute or significant findings. The visualized orbits are grossly unremarkable. No skull fractures. IMPRESSION: Nonspecific area of low attenuation in the left posterior parietal deep white matter. Ischemia or edema of indeterminate age is possible. This could be further evaluated with MRI. Remainder of the exam is unremarkable. Dictated by Dennis Lemus MD @ 01/03/2019 8:38:16 PM Please note that all CT scans at this facility use dose modulation, iterative reconstruction, and/or weight-based dosing when appropriate to reduce radiation dose to as low as reasonably achievable. Dictated by: Dennis Lemus MD @ 01/03/2019 20:38:25 (Electronically Signed)
[2019-01-03] MEDS ORDERED: Acetaminophen/HYDROcodone 325-5 MG Tab PO ONE (20:43)
[2019-01-03] MEDS: Sodium Chloride 0.9% 1,000 ML IV SCH (21:40)
--- NOTE | 2019-01-03 21:42 | EDM.PDOC ---
ED HPI GENERAL MEDICAL PROBLEM - General Chief Complaint: Neurological Problem Stated Complaint: CONFUSED Time Seen by Provider: 01/03/19 19:32 Source of Information: Reports: Patient, Family (Son) History Limitations: Reports: Altered Mental Status (new onset confusion) - History of Present Illness INITIAL COMMENTS - FREE TEXT/NARRATIVE: chief complaint: confusion This is a 68 year old female brought to ER via POV by her son. He reports at noon today, went to her house to check on her. She was still sleeping, woke her up, she seemed confused but he thought this was due to her just being woke up. At about 6 pm today, she was driving by his shop, he noticed that she looked confused, he and his brought her to his house, they both noted her to be confused. Mrs. Hernandez reports she was trying to dial phone numbers but couldn't get past the third number, she does not remember her birthday, but is able to remember her date. Know who she is, vague on the date, know where she is. She is able to relate the of her two years ago from disease. Mrs. Hernandez reports she may be dehydrated because she hasn't eat or drank much today. denies fever, chills, nausea, vomiting, diarrhea, chest pain or shortness of breath. no dysuria, no changes in stool patterns. no recent illness. Onset: Today, Unknown/Unsure Onset Date: 01/03/19 Onset Time: 12:00 Duration: Constant Location: Reports: Generalized (confusion) Quality: Reports: Ache (back of head ) Severity: Mild Improves with: Reports: None Worsens with: Reports: None Associated Symptoms: Reports: Confusion denies pain Pain Score (Numeric/FACES): 0 - Related Data Allergies Allergy/AdvReac Type Severity Reaction Status Date / Time AMOS Inhibitors AdvReac Cough Verified 01/03/19 20:12 morphine AdvReac Itching Verified 01/03/19 20:12 Home Meds: Home Meds Cyclobenzaprine [Flexeril] 10 mg PO BEDTIME PRN 08/24/16 [History] Folic Acid 1 mg PO DAILY 08/24/16 [History] Furosemide [Lasix] 20 mg PO BID 08/24/16 [History] Hydroxyurea 1,000 mg PO DAILY 08/24/16 [History] Levothyroxine 125 mcg PO DAILY 08/24/16 [History] Metoprolol Tartrate 100 mg PO BID 08/24/16 [History] Omeprazole 20 mg PO DAILY 08/24/16 [History] Potassium Chloride [K-Tab ER] 10 meq PO DAILY 08/24/16 [History] amLODIPine [Norvasc] 5 mg PO BEDTIME 08/24/16 [History] cloNIDine [Catapres] 0.2 mg PO BID 08/24/16 [History] Gabapentin [Neurontin] 600 mg PO BID 04/18/17 [History] traMADol HCl [Tramadol HCl] 50 mg PO Q6H PRN 04/18/17 [History] Allopurinol [Zyloprim] 300 mg PO DAILY 07/29/18 [History] Aspirin [Halfprin] 81 mg PO DAILY 07/29/18 [History] Cholecalciferol (Vitamin D3) [Vitamin D3] 2,000 unit PO DAILY 07/29/18 [History] Melatonin 5 mg PO BEDTIME PRN 07/29/18 [History] Rivaroxaban [Xarelto] 20 mg PO DAILY 07/29/18 [History] Vitamin B Complex [B Complex] 1 tab PO DAILY 07/29/18 [History] atorvaSTATin Calcium [Atorvastatin Calcium] 40 mg PO BEDTIME 07/29/18 [History] sitaGLIPtin Phos/Metformin HCl [Janumet 50-500 MG] 1 tab PO BID 07/29/18 [ History] Past Medical History HEENT History: Reports: Cataract, Hard of Hearing, Impaired Vision Other HEENT History: wears glasses; bilat hearing aides Cardiovascular History: Reports: Blood Clots/VTE/DVT, High Cholesterol, Hypertension, SOB on Exertion, Other (See Below) Other Cardiovascular History: thorasic aortic stent; fem-pop bypass Respiratory History: Reports: Pneumonia, Recurrent, Sleep Apnea, Other (See Below) Other Respiratory History: uses oxygen at night Gastrointestinal History: Reports: Cholelithiasis, Chronic Constipation, Diverticulosis, GERD, GI Bleed, Hemorrhoids Genitourinary History: Reports: Acute Renal Failure, Chronic Renal Insuffiency, Urinary Incontinence Other Genitourinary History: 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: Musculoskeletal History: Reports: Back Pain, Chronic, Fracture, Other (See Below ) Other Musculoskeletal History: bilat knee pain; bilat shoulder pain Neurological History: Reports: Neuropathy, 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 Endocrine/Metabolic History: Reports: Diabetes, Type II, Hypothyroidism, Obesity /BMI 30+ Hematologic History: Reports: Blood Transfusion(s), Other (See Below) Other Hematologic History: essential thrombocytosis Dermatologic History: Reports: Cellulitis - Infectious Disease History Infectious Disease History: Reports: Chicken Pox, Measles, Mumps, Rubella, Shingles - Past Surgical History Head Surgeries/Procedures: Reports: None HEENT Surgical History: Reports: Naso-Sinus Surgery, Tonsillectomy Cardiovascular Surgical History: Reports: Vascular Surgery GI Surgical History: Reports: Cholecystectomy, Colonoscopy, Hernia Repair/Other Musculoskeletal Surgical History: Reports: Carpal Tunnel Social & Family History - Family History Cardiac: Reports: Heart Failure, [place] Oncologic: Reports: Breast - Tobacco Use Smoking Status *Q: Never Smoker - Caffeine Use Caffeine Use: Reports: Coffee Caffeine Use Comment: 1 cup of coffee daily - Recreational Drug Use Recreational Drug Use: No - Living Situation & Occupation Living situation: Reports: , Alone (lives alone, 2 years ago , had 3 Children.) ED ROS GENERAL - Review of Systems Review Of Systems: See Below Constitutional: Reports: Other (confusion) HEENT: Reports: Glasses, Other (upper dentures and hearing aides noted) Respiratory: Reports: No Symptoms Cardiovascular: Reports: No Symptoms Endocrine: Reports: High Glucose, Other (diabetes type 2, does not routinely monitor her blood glucose) GI/Abdominal: Reports: No Symptoms : Reports: No Symptoms Musculoskeletal: Reports: No Symptoms Skin: Reports: No Symptoms Neurological: Reports: Confusion, Headache, Other (unable process number, ie can not dial phone numbers past 3 digits) Psychiatric: Reports: Confusion (related to numbers, her date of ) Hematologic/Lymphatic: Reports: No Symptoms Immunologic: Reports: No Symptoms ED EXAM, GENERAL - Physical Exam Exam: See Below Exam Limited By: Altered Mental Status General Appearance: Alert, WD/WN, No Apparent Distress, Obese, Other ( pleasantly confused, relaxed, resting on stretcher, no distress. cooperative.) Eye Exam: Bilateral Eye: EOMI, PERRL, Other (right sided perpherial vision abnormal) Ears: Normal External Exam, Other (hearing aides in place) Nose: Normal Inspection, Normal Mucosa Throat/Mouth: Normal Lips, Normal Teeth (lower natural teeth, upper dentures noted.), Normal Voice, No Airway Compromise, Other (tongue mildly dry. ) Head: Atraumatic, Normocephalic Neck: Normal Inspection, Supple, Non-Tender, Full Range of Motion Respiratory/Chest: No Respiratory Distress, Lungs Clear, Normal Breath Sounds, No Accessory Muscle Use, Chest Non-Tender Cardiovascular: Regular Rate, Rhythm, No Edema, No Murmur Peripheral Pulses: 2+: Radial (L), Radial (R), Posterior Tibial (L), Posterior Tibial (R), Dorsalis Pedis (L), Dorsalis Pedis (R) GI/Abdominal: Normal Bowel Sounds, Soft, Non-Tender, Other (obese unable to palpate for mass. non-tender) Back Exam: Normal Inspection, Full Range of Motion Extremities: Normal Inspection, Normal Range of Motion, Non-Tender, No Pedal Edema, Normal Capillary Refill Neurological: Alert, CN II-XII Intact, Inattentive, Other (memory loss to numbers, counting.) Psychiatric: Flat Affect Skin Exam: Warm, Dry, Intact, Normal Color, No Rash Lymphatic: No Adenopathy Course - Vital Signs Last Recorded V/S: Last Vital Signs Temp 36.2 C 01/03/19 20:12 Pulse 81 01/03/19 21:00 Resp 11 L 01/03/19 21:00 BP 147/86 H 01/03/19 21:00 Pulse Ox 97 01/03/19 20:44 - Orders/Labs/Meds Orders: Active Orders 24 hr Category Date Time Status Cardiac Monitoring [RC] .As Directed Care 01/03/19 19:41 Active UA W/MICROSCOPIC [URIN] Urgent Lab 01/03/19 21:29 Ordered Sodium Chloride 0.9% [Normal Saline] 1,000 ml Med 01/03/19 20:00 Active IV ASDIRECTED Sodium Chloride 0.9% [Saline Flush] Med 01/03/19 19:49 Active 10 ml FLUSH ASDIRECTED PRN Saline Lock Insert [OM.PC] Routine Oth 01/03/19 19:49 Ordered Medication Orders Sodium Chloride (Normal Saline) 1,000 mls @ 999 mls/hr IV ASDIRECTED CALI Last Admin: 01/03/19 20:39 Dose: 999 mls/hr Sodium Chloride (Saline Flush) 10 ml FLUSH ASDIRECTED PRN PRN Reason: Keep Vein Open Last Admin: 01/03/19 20:39 Dose: 10 ml Labs: Laboratory Tests 01/03/19 01/03/19 Range/Units 19:55 19:55 WBC 7.7 (4.5-11.0) K/uL RBC 4.31 (3.30-5.50) M/uL Hgb 15.4 H D (12.0-15.0) g/dL Hct 43.7 (36.0-48.0) % MCV 101 H (80-98) fL MCH 36 H (27-31) pg MCHC 35 (32-36) % Plt Count 574 H (150-400) K/uL Neut % (Auto) 72 H (36-66) % Lymph % (Auto) 16 L (24-44) % [place] % (Auto) 8 H (2-6) % Eos % (Auto) 3 (2-4) % Baso % (Auto) 1 (0-1) % Sodium 140 (140-148) mmol/L Potassium 3.1 L (3.6-5.2) mmol/L Chloride 100 (100-108) mmol/L Carbon Dioxide 28 (21-32) mmol/L Anion Gap 15.1 H (5.0-14.0) mmol/L BUN 20 H (7-18) mg/dL Creatinine 1.4 H (0.6-1.0) mg/dL Est Cr Clr Drug Dosing 28.21 mL/min Estimated GFR (MDRD) 37 L (>60) Glucose 223 H (74-106) mg/dL Calcium 9.1 (8.5-10.1) mg/dL Magnesium 0.9 L (1.8-2.4) mg/dL Total Bilirubin 0.5 (0.2-1.0) mg/dL AST 33 (15-37) U/L ALT 33 (12-78) U/L Alkaline Phosphatase 112 (46-116) U/L Troponin I < 0.017 (0.000-0.056) ng/mL Total Protein 7.6 (6.4-8.2) g/dL Albumin 3.5 (3.4-5.0) g/dL Globulin 4.1 H (2.3-3.5) g/dL Albumin/Globulin Ratio 0.9 L (1.2-2.2) Lipase 90 (73-393) U/L TSH, Ultra Sensitive 1.673 (0.358-3.740) uIU/mL Meds: Medications Generic Name Dose Route Start Last Admin Trade Name Freq PRN Reason Stop Dose Admin Sodium Chloride 1,000 mls @ 999 mls/hr 01/03/19 20:00 01/03/19 20:39 Normal Saline IV 999 mls/hr ASDIRECTED CALI Administration Sodium Chloride 10 ml 01/03/19 19:49 01/03/19 20:39 Saline Flush FLUSH 10 ml ASDIRECTED PRN Administration Keep Vein Open Discontinued Medications Generic Name Dose Route Start Last Admin Trade Name Freq PRN Reason Stop Dose Admin Hydrocodone Bitart/Acetaminophen 1 tab 01/03/19 20:43 [place] 325-5 Mg PO 01/03/19 20:44 ONETIME ONE - Re-Assessments/Exams Free Text/Narrative Re-Assessment/Exam: 01/03/19 21:53 labs; low potassium, elevated BUN, anion gap, urine pending Head CT; no acute bleed, or mid-line shift, area of concerns posterior parietal deep white matter, recommends MRI for further evaluation IV fluids normal saline one liter in ER Hydrocodone 5-325mg one for headache consult to Dr. Jean Carlos Burton, Neurology [place], [place] at 20:56 pm -recommends non-emergent MRI of Brain -in the event she had a Post parietal stroke, no intervention at this time. -rule out other causes, such as infection, dehydration, give fluids, evaluate response to rehydration Consult with Dr. Dutch Salazar, Primary Care Provider, he will admit for further evaluation and treatment. Departure - Departure Time of Disposition: 21:30 Disposition: Admitted As Inpatient 64 Condition: Good Clinical Impression: Confusion and disorientation - Discharge Information *PRESCRIPTION DRUG MONITORING PROGRAM REVIEWED*: Not Applicable *COPY OF PRESCRIPTION DRUG MONITORING REPORT IN PATIENT SUPRIYA: Not Applicable Instructions: Confusion Referrals: Dutch Salazar Sr, MD [Primary Care Provider] - - My Orders Last 24 Hours: My Active Orders 01/03/19 19:41 Cardiac Monitoring [RC] .As Directed 01/03/19 19:49 Sodium Chloride 0.9% [Saline Flush] 10 ml FLUSH ASDIRECTED PRN Saline Lock Insert [OM.PC] Routine 01/03/19 20:00 Sodium Chloride 0.9% [Normal Saline] 1,000 ml IV ASDIRECTED 01/03/19 21:29 UA W/MICROSCOPIC [URIN] Urgent - Assessment/Plan Last 24 Hours: My Active Orders 01/03/19 19:41 Cardiac Monitoring [RC] .As Directed 01/03/19 19:49 Sodium Chloride 0.9% [Saline Flush] 10 ml FLUSH ASDIRECTED PRN Saline Lock Insert [OM.PC] Routine 01/03/19 20:00 Sodium Chloride 0.9% [Normal Saline] 1,000 ml IV ASDIRECTED 01/03/19 21:29 UA W/MICROSCOPIC [URIN] Urgent
[2019-01-03] MEDS ORDERED: Sodium Chloride 0.9% 10 ML SDV IV SCH (21:45)
--- NOTE | 2019-01-03 23:22 | PCM.HP ---
H&P History of Present Illness - General Date of Service: 01/03/19 Admit Problem/Dx: Admission Diagnosis/Problem Admission Diagnosis/Problem Confusion and disorientation Source of Information: Patient, EMS History Limitations: Reports: Altered Mental Status denies pain Pain Score (Numeric/FACES): 0 - Related Data Allergies/Adverse Reactions: Allergies Allergy/AdvReac Type Severity Reaction Status Date / Time AMOS Inhibitors AdvReac Cough Verified 01/03/19 20:12 morphine AdvReac Itching Verified 01/03/19 20:12 Home Medications: Home Meds Cyclobenzaprine [Flexeril] 10 mg PO BEDTIME PRN 08/24/16 [History] Folic Acid 1 mg PO DAILY 08/24/16 [History] Furosemide [Lasix] 20 mg PO BID 08/24/16 [History] Hydroxyurea 1,000 mg PO DAILY 08/24/16 [History] Levothyroxine 125 mcg PO DAILY 08/24/16 [History] Metoprolol Tartrate 100 mg PO BID 08/24/16 [History] Omeprazole 20 mg PO DAILY 08/24/16 [History] Potassium Chloride [K-Tab ER] 10 meq PO DAILY 08/24/16 [History] amLODIPine [Norvasc] 5 mg PO BEDTIME 08/24/16 [History] cloNIDine [Catapres] 0.2 mg PO BID 08/24/16 [History] Gabapentin [Neurontin] 600 mg PO BID 04/18/17 [History] traMADol HCl [Tramadol HCl] 50 mg PO Q6H PRN 04/18/17 [History] Allopurinol [Zyloprim] 300 mg PO DAILY 07/29/18 [History] Aspirin [Halfprin] 81 mg PO DAILY 07/29/18 [History] Cholecalciferol (Vitamin D3) [Vitamin D3] 2,000 unit PO DAILY 07/29/18 [History] Melatonin 5 mg PO BEDTIME PRN 07/29/18 [History] Rivaroxaban [Xarelto] 20 mg PO DAILY 07/29/18 [History] Vitamin B Complex [B Complex] 1 tab PO DAILY 07/29/18 [History] atorvaSTATin Calcium [Atorvastatin Calcium] 40 mg PO BEDTIME 07/29/18 [History] sitaGLIPtin Phos/Metformin HCl [Janumet 50-500 MG] 1 tab PO BID 07/29/18 [ History] Past Medical History HEENT History: Reports: Cataract, Hard of Hearing, Impaired Vision Other HEENT History: wears glasses; bilat hearing aides Cardiovascular History: Reports: Blood Clots/VTE/DVT, High Cholesterol, Hypertension, SOB on Exertion, Other (See Below) Other Cardiovascular History: thorasic aortic stent; fem-pop bypass Respiratory History: Reports: Pneumonia, Recurrent, Sleep Apnea, Other (See Below) Other Respiratory History: uses oxygen at night Gastrointestinal History: Reports: Cholelithiasis, Chronic Constipation, Diverticulosis, GERD, GI Bleed, Hemorrhoids Genitourinary History: Reports: Acute Renal Failure, Chronic Renal Insuffiency, Urinary Incontinence Other Genitourinary History: stress incontinence 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: Musculoskeletal History: Reports: Back Pain, Chronic, Fracture, Other (See Below ) Other Musculoskeletal History: bilat knee pain; bilat shoulder pain Neurological History: Reports: Neuropathy, 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 Endocrine/Metabolic History: Reports: Diabetes, Type II, Hypothyroidism, Obesity /BMI 30+ Hematologic History: Reports: Blood Transfusion(s), Other (See Below) Other Hematologic History: essential thrombocytosis Dermatologic History: Reports: Cellulitis - Infectious Disease History Infectious Disease History: Reports: Chicken Pox, Measles, Mumps, Rubella, Shingles - Past Surgical History Head Surgeries/Procedures: Reports: None HEENT Surgical History: Reports: Naso-Sinus Surgery, Tonsillectomy Cardiovascular Surgical History: Reports: Vascular Surgery GI Surgical History: Reports: Cholecystectomy, Colonoscopy, Hernia Repair/Other Musculoskeletal Surgical History: Reports: Carpal Tunnel Social & Family History - Family History Cardiac: Reports: Heart Failure, [place] Oncologic: Reports: Breast - Tobacco Use Smoking Status *Q: Never Smoker - Caffeine Use Caffeine Use: Reports: Coffee Caffeine Use Comment: 1 cup of coffee daily - Recreational Drug Use Recreational Drug Use: No - Living Situation & Occupation Living situation: Reports: , Alone (lives alone, 2 years ago , had 3 Children.) H&P Review of Systems - Review of Systems: Review Of Systems: See Below General: Reports: Weakness HEENT: Reports: No Symptoms Pulmonary: Reports: No Symptoms Cardiovascular: Reports: No Symptoms Gastrointestinal: Reports: No Symptoms Genitourinary: Reports: No Symptoms Musculoskeletal: Reports: No Symptoms Skin: Reports: No Symptoms Psychiatric: Reports: Anxiety, Hallucinations Neurological: Reports: Difficulty Walking, Weakness Hematologic/Lymphatic: Reports: No Symptoms Exam - Exam Exam: See Below - Vital Signs Vital Signs: Last Vital Signs Temp 96.2 F 01/03/19 22:37 Pulse 80 01/03/19 22:37 Resp 16 01/03/19 22:37 BP 108/69 01/03/19 22:37 Pulse Ox 97 01/03/19 22:37 Weight: 230 lb - Exam General: Oriented, Cooperative, Mild Distress HEENT: PERRLA, Hearing Intact, Mucosa Moist & [place], Nares Patent, Normal Nasal Septum, Posterior Pharynx Clear, Conjunctiva Clear, EOMI, EACs Clear, TMs Clear Neck: Supple, Trachea Midline, 2 Lungs: Clear to Auscultation, Normal Respiratory Effort Cardiovascular: Regular Rate, Regular Rhythm GI/Abdominal Exam: Normal Bowel Sounds, Soft, Non-Tender, No Organomegaly, No Distention, No Abnormal Bruit, No Mass, Pelvis Stable Back Exam: Vertebral Tenderness Extremities: Non-Tender, Pedal Edema Peripheral Pulses: 1+: Radial (L), Radial (R) Neurological: Cranial Nerves Intact, Reflexes Equal Bilateral, Strength Equal Bilateral, Abnormal Gait Neuro Extensive - Mental Status: Oriented x3, Memory Loss-Remote Events DTR: 1+: Bicep (L), Bicep (R), Patella (L), Patella (R) Psychiatric: Anxious (Unable to give her date or year or day unpon admission. Did not know her home phone number.) - Patient Data Lab Results Last 24 hrs: Laboratory Results - last 24 hr 01/03/19 01/03/19 01/03/19 Range/Units 19:55 19:55 21:29 WBC 7.7 (4.5-11.0) K/uL RBC 4.31 (3.30-5.50) M/uL Hgb 15.4 H D (12.0-15.0) g/dL Hct 43.7 (36.0-48.0) % MCV 101 H (80-98) fL MCH 36 H (27-31) pg MCHC 35 (32-36) % Plt Count 574 H (150-400) K/uL Neut % (Auto) 72 H (36-66) % Lymph % (Auto) 16 L (24-44) % [place] % (Auto) 8 H (2-6) % Eos % (Auto) 3 (2-4) % Baso % (Auto) 1 (0-1) % Sodium 140 (140-148) mmol/L Potassium 3.1 L (3.6-5.2) mmol/L Chloride 100 (100-108) mmol/L Carbon Dioxide 28 (21-32) mmol/L Anion Gap 15.1 H (5.0-14.0) mmol/L BUN 20 H (7-18) mg/dL Creatinine 1.4 H (0.6-1.0) mg/dL Est Cr Clr Drug Dosing 28.21 mL/min Estimated GFR (MDRD) 37 L (>60) Glucose 223 H (74-106) mg/dL Calcium 9.1 (8.5-10.1) mg/dL Magnesium 0.9 L (1.8-2.4) mg/dL Total Bilirubin 0.5 (0.2-1.0) mg/dL AST 33 (15-37) U/L ALT 33 (12-78) U/L Alkaline Phosphatase 112 (46-116) U/L Troponin I < 0.017 (0.000-0.056) ng/mL Total Protein 7.6 (6.4-8.2) g/dL Albumin 3.5 (3.4-5.0) g/dL Globulin 4.1 H (2.3-3.5) g/dL Albumin/Globulin Ratio 0.9 L (1.2-2.2) Lipase 90 (73-393) U/L TSH, Ultra Sensitive 1.673 (0.358-3.740) uIU/mL Urine Color Yellow Urine Appearance Clear Urine pH 6.5 (4.5-8.0) Ur Specific [place] 1.015 (1.008-1.030) Urine Protein Negative (NEGATIVE) mg/dL Urine Glucose (UA) Normal (NEGATIVE) mg/dL Urine Ketones Negative (NEGATIVE) mg/dL Urine Occult Blood Negative (NEGATIVE) Urine Nitrite Negative (NEGATIVE) Urine Bilirubin Negative (NEGATIVE) Urine Urobilinogen Normal (NORMAL) mg/dL Ur Leukocyte Esterase Moderate (NEGATIVE) Urine RBC 0-5 (0-5) Urine WBC 10-20 H (0-5) Ur Epithelial Cells Moderate Amorphous Sediment Not seen Urine Bacteria Moderate Urine Mucus Not seen Result Diagrams: 01/03/19 19:55 01/04/19 09:20 Problem List Initiated/Reviewed/Updated: Yes Orders Last 24hrs: Active Orders 24 hr Category Date Time Status Admission Status [Patient Status] [ADT] Routine ADT 01/03/19 21:34 Active Telemetry Monitoring [Cardiac Monitoring] [RC] .As Care 01/03/19 21:45 Active Directed Regular Diet [DIET] Diet 01/03/19 Dinner Active Ang Head wo Cont [MR] Routine Exams 01/03/19 23:17 Ordered Carotid Comp [US] Routine Exams 01/03/19 23:19 Ordered CULTURE URINE [RM] Routine Lab 01/04/19 05:00 Ordered Potassium Chloride [Klor-Con M20] Med 01/03/19 23:30 Ordered 20 meq PO BID Sodium Chloride 0.9% [Normal Saline] 1,000 ml Med 01/03/19 22:45 Active IV ASDIRECTED Sodium Chloride 0.9% [Saline Flush] Med 01/03/19 19:49 Active 10 ml FLUSH ASDIRECTED PRN Saline Lock Insert [OM.PC] Routine Oth 01/03/19 19:49 Ordered Medication Orders Sodium Chloride (Normal Saline) 1,000 mls @ 125 mls/hr IV ASDIRECTED CALI Last Admin: 01/03/19 21:40 Dose: 125 mls/hr Potassium Chloride (Klor-Con M20) 20 meq PO BID CALI Sodium Chloride (Saline Flush) 10 ml FLUSH ASDIRECTED PRN PRN Reason: Keep Vein Open Last Admin: 01/03/19 20:39 Dose: 10 ml Assessment/Plan Comment:: Assessment/Plan #1. Neuro deficit with memory loss: Ct non diagnostic. MRI in the Morning. #2. Hypokalemia: Will supplement with K. #3. Chronic back Pain: #4. Thrombocytosis: Continue with Meds. #5. Acute dehydration: Will continue with hydration #6. Morbid Obesity: #7. DVT, chronic: #8. CRF: Hydrate with NS #9. Deg. Joint disease: #10. GERD: #11. HLD: Continue with Lipitor #12. Hypothyroidism: Will continue with thyroid replacement. #13. DM II: Continue with metformin
[2019-01-03] MEDS ORDERED: Melatonin 3 MG Tab PO PRN (23:24)
[2019-01-03] MEDS ORDERED: Cyclobenzaprine 10 MG Tab PO PRN (23:24)
[2019-01-04] MEDS: Potassium Chloride 20 MEQ Tab.ER PO SCH ×2 (00:25→09:49)
[2019-01-04] MEDS: Furosemide 20 MG Tab PO SCH ×3 (00:25→15:48)
[2019-01-04] MEDS: Gabapentin 300 MG Cap PO SCH ×2 (00:26→09:51)
[2019-01-04] MEDS: Sodium Chloride 0.9% 1,000 ML IV SCH (05:58)
[2019-01-04] MEDS ORDERED: Pantoprazole 40 MG Tab.CR PO SCH (07:30)
[2019-01-04] MEDS ORDERED: Levothyroxine 25 MCG Tab PO SCH (07:30)
[2019-01-04] MEDS ORDERED: Levothyroxine 100 MCG Tab PO SCH (07:30)
[2019-01-04] MEDS ORDERED: Cholecalciferol (Vitamin D3) 1,000 Unit Tab PO SCH (09:00)
[2019-01-04] MEDS ORDERED: Metoprolol Tartrate 50 MG Tab PO SCH (09:00)
[2019-01-04] MEDS ORDERED: Allopurinol 300 MG Tab PO SCH (09:00)
[2019-01-04] MEDS ORDERED: Aspirin 81 MG Tab.EC PO SCH (09:00)
[2019-01-04] MEDS ORDERED: HYDROXYUREA PO SCH (09:00)
[2019-01-04] MEDS ORDERED: Non-Formulary Medication 1 Each (Sitagliptin Phos/Metformin Hcl [Janumet 50-500 Mg] 1 TAB) PO SCH (09:00)
[2019-01-04] MEDS ORDERED: Folic Acid 1 MG Tab PO SCH (09:00)
[2019-01-04] MEDS ORDERED: Non-Formulary Medication 1 Each (Levothyroxine [Levothyroxine] 125 MCG) PO SCH (09:00)
[2019-01-04] MEDS ORDERED: Vitamin B Complex Tab PO SCH (09:00)
[2019-01-04] MEDS: metFORMIN 500 MG Tab PO SCH ×2 (09:47→18:02)
--- NOTE | 2019-01-04 12:45 | CRLUS ---
INDICATION: Memory loss TECHNIQUE: Ultrasound carotid bilateral arterial duplex with color Doppler and spectral Doppler analysis. COMPARISON: None FINDINGS: Multiple sonographic images with villa-scale, color Doppler and spectral Doppler analysis were obtained demonstrate mild atherosclerotic plaque in the carotid arteries bilaterally. Velocities are within normal limits bilaterally. The right ICA/CCA ratio is 0.86 and the left ICA/CCA ratio is 1.3. Spectral waveforms are normal. Both vertebral arteries are antegrade. IMPRESSION: 1. Bilateral carotid artery atherosclerosis. 2. Estimated stenosis in the right internal carotid artery is less than 50% by NASCET criteria. 3. Estimated stenosis in the left internal carotid artery is less than 50% by NASCET criteria. Dictated by Dennis Lemus MD @ Jan 04 2019 12:38PM Signed by Dr. Dennis Lemus @ Jan 04 2019 12:43PM
--- NOTE | 2019-01-04 14:00 | CRLMR ---
Indication: Memory loss. Confusion for 1 day Technique: 3D [id number] MR angiogram of the [id number] with 3-dimensional MIP projections were submitted. Comparison: No prior CTA or MRI studies available for comparison at this institution. Findings: Internal carotid arteries, middle cerebral arteries and anterior cerebral arteries are normal. MCA bifurcations and anterior communicating artery region are normal. origin of the posterior cerebral arteries. Hypoplastic P1 QUALITY ASSURANCE CALIBRATOR segments. Distal vertebral arteries, basilar artery, and posterior cerebral arteries are normal. Basilar tip is normal. No aneurysms, stenoses, or occlusions, throughout. Hypoplastic left vertebral artery. Dominant right vertebral artery. Impression: No evidence of proximal arterial occlusion, aneurysm, dissection, or vascular malformation. Dictated by Montana Haider MD @ Jan 04 2019 1:52PM Signed by Dr. Montana Haider @ Jan 04 2019 1:58PM
[2019-01-04 15:24] VITALS: BP 146/67
[2019-01-04] MEDS ORDERED: Rivaroxaban 10 MG Tab PO SCH (17:00)
--- NOTE | 2019-01-04 17:38 | PCM.PN ---
- General Info Date of Service: 01/04/19 Functional Status: Reports: Pain Controlled - Review of Systems General: Reports: Weakness HEENT: Reports: No Symptoms Pulmonary: Reports: No Symptoms Cardiovascular: Reports: No Symptoms Gastrointestinal: Reports: No Symptoms Genitourinary: Reports: No Symptoms Musculoskeletal: Reports: No Symptoms Skin: Reports: No Symptoms Neurological: Reports: Weakness Psychiatric: Reports: No Symptoms - Patient Data Vitals - Most Recent: Last Vital Signs Temp 97.9 F 01/04/19 15:16 Pulse 71 01/04/19 15:16 Resp 16 01/04/19 15:16 BP 146/67 H 01/04/19 15:16 Pulse Ox 94 L 01/04/19 15:16 Weight - Most Recent: 230 lb I&O - Last 24 Hours: Intake & Output 01/04/19 01/04/19 01/04/19 06:59 14:59 22:59 Intake Total 925 100 Output Total 1600 1075 300 Balance -805 -735 -300 Lab Results Last 24 Hours: Laboratory Results - last 24 hr 01/03/19 01/03/19 01/03/19 Range/Units 19:55 19:55 21:29 WBC 7.7 (4.5-11.0) K/uL RBC 4.31 (3.30-5.50) M/uL Hgb 15.4 H D (12.0-15.0) g/dL Hct 43.7 (36.0-48.0) % MCV 101 H (80-98) fL MCH 36 H (27-31) pg MCHC 35 (32-36) % Plt Count 574 H (150-400) K/uL Neut % (Auto) 72 H (36-66) % Lymph % (Auto) 16 L (24-44) % [place] % (Auto) 8 H (2-6) % Eos % (Auto) 3 (2-4) % Baso % (Auto) 1 (0-1) % Sodium 140 (140-148) mmol/L Potassium 3.1 L (3.6-5.2) mmol/L Chloride 100 (100-108) mmol/L Carbon Dioxide 28 (21-32) mmol/L Anion Gap 15.1 H (5.0-14.0) mmol/L BUN 20 H (7-18) mg/dL Creatinine 1.4 H (0.6-1.0) mg/dL Est Cr Clr Drug Dosing 28.21 mL/min Estimated GFR (MDRD) 37 L (>60) Glucose 223 H (74-106) mg/dL Calcium 9.1 (8.5-10.1) mg/dL Magnesium 0.9 L (1.8-2.4) mg/dL Total Bilirubin 0.5 (0.2-1.0) mg/dL AST 33 (15-37) U/L ALT 33 (12-78) U/L Alkaline Phosphatase 112 (46-116) U/L Troponin I < 0.017 (0.000-0.056) ng/mL Total Protein 7.6 (6.4-8.2) g/dL Albumin 3.5 (3.4-5.0) g/dL Globulin 4.1 H (2.3-3.5) g/dL Albumin/Globulin Ratio 0.9 L (1.2-2.2) Lipase 90 (73-393) U/L TSH, Ultra Sensitive 1.673 (0.358-3.740) uIU/mL Urine Color Yellow Urine Appearance Clear Urine pH 6.5 (4.5-8.0) Ur Specific [place] 1.015 (1.008-1.030) Urine Protein Negative (NEGATIVE) mg/dL Urine Glucose (UA) Normal (NEGATIVE) mg/dL Urine Ketones Negative (NEGATIVE) mg/dL Urine Occult Blood Negative (NEGATIVE) Urine Nitrite Negative (NEGATIVE) Urine Bilirubin Negative (NEGATIVE) Urine Urobilinogen Normal (NORMAL) mg/dL Ur Leukocyte Esterase Moderate (NEGATIVE) Urine RBC 0-5 (0-5) Urine WBC 10-20 H (0-5) Ur Epithelial Cells Moderate Amorphous Sediment Not seen Urine Bacteria Moderate Urine Mucus Not seen 01/04/19 Range/Units 09:20 WBC (4.5-11.0) K/uL RBC (3.30-5.50) M/uL Hgb (12.0-15.0) g/dL Hct (36.0-48.0) % MCV (80-98) fL MCH (27-31) pg MCHC (32-36) % Plt Count (150-400) K/uL Neut % (Auto) (36-66) % Lymph % (Auto) (24-44) % [place] % (Auto) (2-6) % Eos % (Auto) (2-4) % Baso % (Auto) (0-1) % Sodium 141 (140-148) mmol/L Potassium 3.0 L (3.6-5.2) mmol/L Chloride 103 (100-108) mmol/L Carbon Dioxide 28 (21-32) mmol/L Anion Gap 13.0 (5.0-14.0) mmol/L BUN 15 (7-18) mg/dL Creatinine 1.1 H (0.6-1.0) mg/dL Est Cr Clr Drug Dosing 39.35 mL/min Estimated GFR (MDRD) 49 L (>60) Glucose 223 H (74-106) mg/dL Calcium 8.2 L (8.5-10.1) mg/dL Magnesium (1.8-2.4) mg/dL Total Bilirubin (0.2-1.0) mg/dL AST (15-37) U/L ALT (12-78) U/L Alkaline Phosphatase (46-116) U/L Troponin I (0.000-0.056) ng/mL Total Protein (6.4-8.2) g/dL Albumin (3.4-5.0) g/dL Globulin (2.3-3.5) g/dL Albumin/Globulin Ratio (1.2-2.2) Lipase (73-393) U/L TSH, Ultra Sensitive (0.358-3.740) uIU/mL Urine Color Urine Appearance Urine pH (4.5-8.0) Ur Specific [place] (1.008-1.030) Urine Protein (NEGATIVE) mg/dL Urine Glucose (UA) (NEGATIVE) mg/dL Urine Ketones (NEGATIVE) mg/dL Urine Occult Blood (NEGATIVE) Urine Nitrite (NEGATIVE) Urine Bilirubin (NEGATIVE) Urine Urobilinogen (NORMAL) mg/dL Ur Leukocyte Esterase (NEGATIVE) Urine RBC (0-5) Urine WBC (0-5) Ur Epithelial Cells Amorphous Sediment Urine Bacteria Urine Mucus Med Orders - Current: Current Medications Allopurinol (Zyloprim) 300 mg PO DAILY [facility] Last Admin: 01/04/19 09:54 Dose: 300 mg Alogliptin Benzoate (Alogliptin) 6.25 mg PO DAILY [facility] Last Admin: 01/04/19 09:48 Dose: 6.25 mg Amlodipine Besylate (Norvasc) 5 mg PO BEDTIME [facility] Aspirin (Halfprin) 81 mg PO DAILY [facility] Last Admin: 01/04/19 09:50 Dose: 81 mg Atorvastatin Calcium (Lipitor) 40 mg PO BEDTIME [facility] Cholecalciferol (Vitamin D3) 2,000 units PO DAILY [facility] Last Admin: 01/04/19 09:52 Dose: 2,000 units Cyclobenzaprine HCl (Flexeril) 10 mg PO BEDTIME PRN PRN Reason: Spasms Folic Acid (Folic Acid) 1 mg PO DAILY [facility] Last Admin: 01/04/19 09:44 Dose: 1 mg Furosemide (Lasix) 20 mg PO BIDDIURETIC [facility] Last Admin: 01/04/19 15:48 Dose: 20 mg Gabapentin (Neurontin) 600 mg PO BID [facility] Last Admin: 01/04/19 09:51 Dose: 600 mg Sodium Chloride (Normal Saline) 1,000 mls @ 125 mls/hr IV ASDIRECTED [facility] Last Admin: 01/04/19 05:58 Dose: 125 mls/hr Levothyroxine Sodium (Synthroid) 100 mcg PO ACBREAKFAST [facility] Last Admin: 01/04/19 09:42 Dose: 100 mcg Levothyroxine Sodium (Levothyroxine) 25 mcg PO ACBREAKFAST [facility] Last Admin: 01/04/19 09:43 Dose: 25 mcg Melatonin (Melatonin) 6 mg PO BEDTIME PRN PRN Reason: Sleep Metformin HCl (Glucophage) 500 mg PO BIDMEALS [facility] Last Admin: 01/04/19 09:47 Dose: 500 mg Metoprolol Tartrate (Lopressor) 100 mg PO BID [facility] Last Admin: 01/04/19 09:46 Dose: 100 mg (Hydroxyurea [ (Hydroxyurea] )*Pom*) 1,000 mg PO DAILY [facility] Last Admin: 01/04/19 16:42 Dose: Not Given Pantoprazole Sodium (Protonix) 40 mg PO ACBREAKFAST [facility] Last Admin: 01/04/19 09:44 Dose: 40 mg Potassium Chloride (Klor-Con M20) 20 meq PO BID [facility] Last Admin: 01/04/19 09:49 Dose: 20 meq Rivaroxaban (Xarelto) 20 mg PO QPM [facility] Sodium Chloride (Saline Flush) 10 ml FLUSH ASDIRECTED PRN PRN Reason: Keep Vein Open Last Admin: 01/03/19 20:39 Dose: 10 ml Vitamin B Complex (Vitamin B Complex) 1 each PO DAILY [facility] Last Admin: 01/04/19 09:53 Dose: 1 each Discontinued Medications Hydrocodone Bitart/Acetaminophen ([place] 325-5 Mg) 1 tab PO ONETIME ONE Stop: 01/03/19 20:44 Last Admin: 01/03/19 21:39 Dose: 1 tab Sodium Chloride (Normal Saline) 1,000 mls @ 999 mls/hr IV ASDIRECTED [facility] Last Admin: 01/03/19 20:39 Dose: 999 mls/hr Non-Formulary Medication (Levothyroxine [Levothyroxine]) 125 mcg PO DAILY [facility] Non-Formulary Medication (Sitagliptin Phos/Metformin Hcl [Janumet 50-500 Mg]) 1 tab PO BID [facility] - Exam General: Alert, Oriented HEENT: Pupils Equal, Pupils Reactive, EOMI, Mucous Membr. Moist/[place] Neck: Supple Lungs: Clear to Auscultation, Normal Respiratory Effort Cardiovascular: Regular Rate, Regular Rhythm GI/Abdominal Exam: Normal Bowel Sounds, Soft, Non-Tender, No Organomegaly, No Distention, No Abnormal Bruit, No Mass, Pelvis Stable Back Exam: Vertebral Tenderness Extremities: Pedal Edema Peripheral Pulses: 1+: Radial (L), Radial (R) Skin: Warm, Dry, Intact Neurological: Normal Gait, Normal Speech, Normal Tone Psy/Mental Status: Alert, Normal Affect, Normal Mood - Problem List Review Problem List Initiated/Reviewed/Updated: Yes - My Orders Last 24 Hours: My Active Orders 01/03/19 21:34 Admission Status [Patient Status] [ADT] Routine 01/03/19 21:45 Telemetry Monitoring [Cardiac Monitoring] [RC] .As Directed 01/03/19 22:45 Sodium Chloride 0.9% [Normal Saline] 1,000 ml IV ASDIRECTED 01/03/19 23:24 Cyclobenzaprine [Flexeril] 10 mg PO BEDTIME PRN Melatonin 6 mg PO BEDTIME PRN 01/03/19 23:30 Furosemide [Lasix] 20 mg PO BIDDIURETIC Gabapentin [Neurontin] 600 mg PO BID Potassium Chloride [Klor-Con M20] 20 meq PO BID 01/03/19 Dinner Regular Diet [DIET] 01/04/19 00:01 CULTURE URINE [RM] Routine 01/04/19 07:30 Levothyroxine 25 mcg PO ACBREAKFAST Levothyroxine [Synthroid] 100 mcg PO ACBREAKFAST Pantoprazole [ProTONIX] 40 mg PO ACBREAKFAST 01/04/19 08:00 metFORMIN [Glucophage] 500 mg PO BIDMEALS 01/04/19 09:00 Echo Comp wo Cont [US] Routine Allopurinol [Zyloprim] 300 mg PO DAILY Alogliptin Benzoate [Alogliptin] 6.25 mg PO DAILY Aspirin [Halfprin] 81 mg PO DAILY Cholecalciferol (Vitamin D3) [Vitamin D3] 2,000 units PO DAILY Folic Acid 1 mg PO DAILY Hydroxyurea [Hydroxyurea] 1,000 mg PO DAILY Metoprolol Tartrate [Lopressor] 100 mg PO BID Vitamin B Complex 1 each PO DAILY 01/04/19 17:00 Rivaroxaban [Xarelto] 20 mg PO QPM 01/04/19 21:00 amLODIPine [Norvasc] 5 mg PO BEDTIME atorvaSTATin [Lipitor] 40 mg PO BEDTIME - Plan Plan:: Assessment/Plan #1. Neuro deficit with memory loss: Ct non diagnostic. MRI done today was normal. #2. Hypokalemia: Will supplement with K. K 3.0 this morning. #3. Chronic back Pain: #4. Thrombocytosis: Continue with Meds. #5. Acute dehydration: Will continue with hydration CRF improved with egfr 39 #6. Morbid Obesity: #7. DVT, chronic: #8. CRF: Hydrate with NS Improving with creat 1.1 #9. Deg. Joint disease: #10. GERD: #11. HLD: Continue with Lipitor #12. Hypothyroidism: Will continue with thyroid replacement. #13. DM II: Continue with metformin. Plan home today as she is stable.
--- NOTE | 2019-01-04 17:47 | PCM.DCSUM1 ---
Discharge Summary - Hospital Course Free Text/Narrative:: Admitted from home after being confused while at home and unable to use the telephone so drove to her sons home. Then came into the ER and was admitted after have a non-diagnostic CT. At first she didn't know her name or date. Didn't know the year. She did know the place and relative time. Diagnosis: Stroke: No - Discharge Data Discharge Date: 01/04/19 Discharge Disposition: Home, Self-Care 01 Condition: Fair - Patient Summary/Data Hospital Course: She cleared within 24 hours and was normal in speech and ambulation and memory. The MRI was Negative for any acute pathology. Her K was low and is being corrected. She was dehydrated when she came in the the ER. - Patient Instructions Diet: Heart Healthy Diet, Diabetic Diet Activity: As Tolerated - Discharge Plan *PRESCRIPTION DRUG MONITORING PROGRAM REVIEWED*: No *COPY OF PRESCRIPTION DRUG MONITORING REPORT IN PATIENT SUPRIYA: Not Applicable Home Medications: Home Meds Cyclobenzaprine [Flexeril] 10 mg PO BEDTIME PRN 08/24/16 [History] Folic Acid 1 mg PO DAILY 08/24/16 [History] Furosemide [Lasix] 20 mg PO BID 08/24/16 [History] Hydroxyurea 1,000 mg PO DAILY 08/24/16 [History] Levothyroxine 125 mcg PO DAILY 08/24/16 [History] Metoprolol Tartrate 100 mg PO BID 08/24/16 [History] Omeprazole 20 mg PO DAILY 08/24/16 [History] amLODIPine [Norvasc] 5 mg PO BEDTIME 08/24/16 [History] cloNIDine [Catapres] 0.2 mg PO BID 08/24/16 [History] Gabapentin [Neurontin] 600 mg PO BID 04/18/17 [History] traMADol HCl [Tramadol HCl] 50 mg PO Q6H PRN 04/18/17 [History] Allopurinol [Zyloprim] 300 mg PO DAILY 07/29/18 [History] Aspirin [Halfprin] 81 mg PO DAILY 07/29/18 [History] Cholecalciferol (Vitamin D3) [Vitamin D3] 2,000 unit PO DAILY 07/29/18 [History] Melatonin 5 mg PO BEDTIME PRN 07/29/18 [History] Rivaroxaban [Xarelto] 20 mg PO DAILY 07/29/18 [History] Vitamin B Complex [B Complex] 1 tab PO DAILY 07/29/18 [History] atorvaSTATin Calcium [Atorvastatin Calcium] 40 mg PO BEDTIME 07/29/18 [History] sitaGLIPtin Phos/Metformin HCl [Janumet 50-500 MG] 1 tab PO BID 07/29/18 [ History] Potassium Chloride [K-Tab ER] 20 meq PO DAILY #0 01/04/19 [Rx] Potassium Chloride [Klor-Con M20] 20 meq PO BID tab.er 01/04/19 [Rx] metFORMIN [Glucophage] 500 mg PO BIDMEALS tablet 01/04/19 [Rx] Patient Handouts: Confusion Forms: ED Department Discharge Referrals: Dutch Salazar Sr, MD [Primary Care Provider] - - Discharge Summary/Plan Comment DC Time >30 min.: Yes Discharge Summary/Plan Comment: Assessment/Plan #1. Neuro deficit with memory loss: Ct non diagnostic. MRI done today was normal. #2. Hypokalemia: Will supplement with K. K 3.0 this morning. #3. Chronic back Pain: #4. Thrombocytosis: Continue with Meds. #5. Acute dehydration: Will continue with hydration CRF improved with egfr 39 #6. Morbid Obesity: #7. DVT, chronic: #8. CRF: Hydrate with NS Improving with creat 1.1 #9. Deg. Joint disease: #10. GERD: #11. HLD: Continue with Lipitor #12. Hypothyroidism: Will continue with thyroid replacement. #13. DM II: Continue with metformin. Plan home today as she is stable. - General Info Functional Status: Reports: Pain Controlled - Review of Systems General: Reports: No Symptoms HEENT: Reports: No Symptoms Pulmonary: Reports: No Symptoms Cardiovascular: Reports: No Symptoms Gastrointestinal: Reports: No Symptoms Genitourinary: Reports: No Symptoms Musculoskeletal: Reports: No Symptoms Skin: Reports: No Symptoms Neurological: Reports: No Symptoms Psychiatric: Reports: No Symptoms - Patient Data Vitals - Most Recent: Last Vital Signs Temp 97.9 F 01/04/19 15:16 Pulse 71 01/04/19 15:16 Resp 16 01/04/19 15:16 BP 146/67 H 01/04/19 15:16 Pulse Ox 94 L 01/04/19 15:16 Weight - Most Recent: 230 lb I&O - Last 24 hours: Intake & Output 01/04/19 01/04/19 01/04/19 06:59 14:59 22:59 Intake Total 925 100 Output Total 1600 1075 300 Balance -635 -178 -300 Lab Results - Last 24 hrs: Laboratory Results - last 24 hr 01/03/19 01/03/19 01/03/19 Range/Units 19:55 19:55 21:29 WBC 7.7 (4.5-11.0) K/uL RBC 4.31 (3.30-5.50) M/uL Hgb 15.4 H D (12.0-15.0) g/dL Hct 43.7 (36.0-48.0) % MCV 101 H (80-98) fL MCH 36 H (27-31) pg MCHC 35 (32-36) % Plt Count 574 H (150-400) K/uL Neut % (Auto) 72 H (36-66) % Lymph % (Auto) 16 L (24-44) % [place] % (Auto) 8 H (2-6) % Eos % (Auto) 3 (2-4) % Baso % (Auto) 1 (0-1) % Sodium 140 (140-148) mmol/L Potassium 3.1 L (3.6-5.2) mmol/L Chloride 100 (100-108) mmol/L Carbon Dioxide 28 (21-32) mmol/L Anion Gap 15.1 H (5.0-14.0) mmol/L BUN 20 H (7-18) mg/dL Creatinine 1.4 H (0.6-1.0) mg/dL Est Cr Clr Drug Dosing 28.21 mL/min Estimated GFR (MDRD) 37 L (>60) Glucose 223 H (74-106) mg/dL Calcium 9.1 (8.5-10.1) mg/dL Magnesium 0.9 L (1.8-2.4) mg/dL Total Bilirubin 0.5 (0.2-1.0) mg/dL AST 33 (15-37) U/L ALT 33 (12-78) U/L Alkaline Phosphatase 112 (46-116) U/L Troponin I < 0.017 (0.000-0.056) ng/mL Total Protein 7.6 (6.4-8.2) g/dL Albumin 3.5 (3.4-5.0) g/dL Globulin 4.1 H (2.3-3.5) g/dL Albumin/Globulin Ratio 0.9 L (1.2-2.2) Lipase 90 (73-393) U/L TSH, Ultra Sensitive 1.673 (0.358-3.740) uIU/mL Urine Color Yellow Urine Appearance Clear Urine pH 6.5 (4.5-8.0) Ur Specific [place] 1.015 (1.008-1.030) Urine Protein Negative (NEGATIVE) mg/dL Urine Glucose (UA) Normal (NEGATIVE) mg/dL Urine Ketones Negative (NEGATIVE) mg/dL Urine Occult Blood Negative (NEGATIVE) Urine Nitrite Negative (NEGATIVE) Urine Bilirubin Negative (NEGATIVE) Urine Urobilinogen Normal (NORMAL) mg/dL Ur Leukocyte Esterase Moderate (NEGATIVE) Urine RBC 0-5 (0-5) Urine WBC 10-20 H (0-5) Ur Epithelial Cells Moderate Amorphous Sediment Not seen Urine Bacteria Moderate Urine Mucus Not seen 01/04/19 Range/Units 09:20 WBC (4.5-11.0) K/uL RBC (3.30-5.50) M/uL Hgb (12.0-15.0) g/dL Hct (36.0-48.0) % MCV (80-98) fL MCH (27-31) pg MCHC (32-36) % Plt Count (150-400) K/uL Neut % (Auto) (36-66) % Lymph % (Auto) (24-44) % [place] % (Auto) (2-6) % Eos % (Auto) (2-4) % Baso % (Auto) (0-1) % Sodium 141 (140-148) mmol/L Potassium 3.0 L (3.6-5.2) mmol/L Chloride 103 (100-108) mmol/L Carbon Dioxide 28 (21-32) mmol/L Anion Gap 13.0 (5.0-14.0) mmol/L BUN 15 (7-18) mg/dL Creatinine 1.1 H (0.6-1.0) mg/dL Est Cr Clr Drug Dosing 39.35 mL/min Estimated GFR (MDRD) 49 L (>60) Glucose 223 H (74-106) mg/dL Calcium 8.2 L (8.5-10.1) mg/dL Magnesium (1.8-2.4) mg/dL Total Bilirubin (0.2-1.0) mg/dL AST (15-37) U/L ALT (12-78) U/L Alkaline Phosphatase (46-116) U/L Troponin I (0.000-0.056) ng/mL Total Protein (6.4-8.2) g/dL Albumin (3.4-5.0) g/dL Globulin (2.3-3.5) g/dL Albumin/Globulin Ratio (1.2-2.2) Lipase (73-393) U/L TSH, Ultra Sensitive (0.358-3.740) uIU/mL Urine Color Urine Appearance Urine pH (4.5-8.0) Ur Specific [place] (1.008-1.030) Urine Protein (NEGATIVE) mg/dL Urine Glucose (UA) (NEGATIVE) mg/dL Urine Ketones (NEGATIVE) mg/dL Urine Occult Blood (NEGATIVE) Urine Nitrite (NEGATIVE) Urine Bilirubin (NEGATIVE) Urine Urobilinogen (NORMAL) mg/dL Ur Leukocyte Esterase (NEGATIVE) Urine RBC (0-5) Urine WBC (0-5) Ur Epithelial Cells Amorphous Sediment Urine Bacteria Urine Mucus Med Orders - Current: Current Medications Allopurinol (Zyloprim) 300 mg PO DAILY [facility] Last Admin: 01/04/19 09:54 Dose: 300 mg Alogliptin Benzoate (Alogliptin) 6.25 mg PO DAILY [facility] Last Admin: 01/04/19 09:48 Dose: 6.25 mg Amlodipine Besylate (Norvasc) 5 mg PO BEDTIME [facility] Aspirin (Halfprin) 81 mg PO DAILY [facility] Last Admin: 01/04/19 09:50 Dose: 81 mg Atorvastatin Calcium (Lipitor) 40 mg PO BEDTIME [facility] Cholecalciferol (Vitamin D3) 2,000 units PO DAILY [facility] Last Admin: 01/04/19 09:52 Dose: 2,000 units Cyclobenzaprine HCl (Flexeril) 10 mg PO BEDTIME PRN PRN Reason: Spasms Folic Acid (Folic Acid) 1 mg PO DAILY [facility] Last Admin: 01/04/19 09:44 Dose: 1 mg Furosemide (Lasix) 20 mg PO BIDDIURETIC [facility] Last Admin: 01/04/19 15:48 Dose: 20 mg Gabapentin (Neurontin) 600 mg PO BID [facility] Last Admin: 01/04/19 09:51 Dose: 600 mg Sodium Chloride (Normal Saline) 1,000 mls @ 125 mls/hr IV ASDIRECTED [facility] Last Admin: 01/04/19 05:58 Dose: 125 mls/hr Levothyroxine Sodium (Synthroid) 100 mcg PO ACBREAKFAST [facility] Last Admin: 01/04/19 09:42 Dose: 100 mcg Levothyroxine Sodium (Levothyroxine) 25 mcg PO ACBREAKFAST [facility] Last Admin: 01/04/19 09:43 Dose: 25 mcg Melatonin (Melatonin) 6 mg PO BEDTIME PRN PRN Reason: Sleep Metformin HCl (Glucophage) 500 mg PO BIDMEALS [facility] Last Admin: 01/04/19 09:47 Dose: 500 mg Metoprolol Tartrate (Lopressor) 100 mg PO BID [facility] Last Admin: 01/04/19 09:46 Dose: 100 mg (Hydroxyurea [ (Hydroxyurea] )*Pom*) 1,000 mg PO DAILY [facility] Last Admin: 01/04/19 16:42 Dose: Not Given Pantoprazole Sodium (Protonix) 40 mg PO ACBREAKFAST [facility] Last Admin: 01/04/19 09:44 Dose: 40 mg Potassium Chloride (Klor-Con M20) 20 meq PO BID [facility] Last Admin: 01/04/19 09:49 Dose: 20 meq Rivaroxaban (Xarelto) 20 mg PO QPM [facility] Sodium Chloride (Saline Flush) 10 ml FLUSH ASDIRECTED PRN PRN Reason: Keep Vein Open Last Admin: 01/03/19 20:39 Dose: 10 ml Vitamin B Complex (Vitamin B Complex) 1 each PO DAILY [facility] Last Admin: 01/04/19 09:53 Dose: 1 each Discontinued Medications Hydrocodone Bitart/Acetaminophen ([place] 325-5 Mg) 1 tab PO ONETIME ONE Stop: 01/03/19 20:44 Last Admin: 01/03/19 21:39 Dose: 1 tab Sodium Chloride (Normal Saline) 1,000 mls @ 999 mls/hr IV ASDIRECTED [facility] Last Admin: 01/03/19 20:39 Dose: 999 mls/hr Non-Formulary Medication (Levothyroxine [Levothyroxine]) 125 mcg PO DAILY [facility] Non-Formulary Medication (Sitagliptin Phos/Metformin Hcl [Janumet 50-500 Mg]) 1 tab PO BID [facility] - Exam General: Reports: Alert, Oriented HEENT: Reports: Pupils Equal, Pupils Reactive, EOMI, Mucous Membr. Moist/[place] Neck: Reports: Supple Lungs: Reports: Clear to Auscultation, Normal Respiratory Effort Cardiovascular: Reports: Regular Rate, Regular Rhythm GI/Abdominal Exam: Normal Bowel Sounds, Soft, Non-Tender, No Organomegaly, No Distention, No Abnormal Bruit, No Mass, Pelvis Stable Extremities: Pedal Edema Skin: Reports: Warm, Dry, Intact Neurological: Reports: No New Focal Deficit Psy/Mental Status: Reports: Alert, Normal Affect, Normal Mood
[2019-01-04] MEDS ORDERED: atorvaSTATin 20 MG Tab PO SCH (21:00)
[2019-01-04] MEDS ORDERED: amLODIPine 5 MG Tab PO SCH (21:00)
== END 2019-01-04 18:38 | disposition home or self-care (01) | DRG 92 ==
LOC: JP.ED 19:30 → JP.MS 21:34
PROVIDERS: ADMIT Internal Medicine; ATTEND Internal Medicine
DX: R29.818 Other symptoms and signs involving the nervous system (principal); Z68.41 Body mass index [BMI] 40.0-44.9, adult; R41.0 Disorientation, unspecified; E86.0 Dehydration; E87.6 Hypokalemia; I12.9 Hypertensive chronic kidney disease with stage 1 through stage 4 chronic kidney disease, or unspecified chronic kidney disease; E11.22 Type 2 diabetes mellitus with diabetic chronic kidney disease; E11.42 Type 2 diabetes mellitus with diabetic polyneuropathy; N18.9 Chronic kidney disease, unspecified; Z86.718 Personal history of other venous thrombosis and embolism; Z99.81 Dependence on supplemental oxygen; E03.9 Hypothyroidism, unspecified; Z79.82 Long term (current) use of aspirin; Z79.01 Long term (current) use of anticoagulants; Z79.84 Long term (current) use of oral hypoglycemic drugs; M54.9 Dorsalgia, unspecified; G89.29 Other chronic pain; E66.01 Morbid (severe) obesity due to excess calories; D47.3 Essential (hemorrhagic) thrombocythemia; K21.9 Gastro-esophageal reflux disease without esophagitis; K59.09 Other constipation; G47.30 Sleep apnea, unspecified; Z87.01 Personal history of pneumonia (recurrent); E78.5 Hyperlipidemia, unspecified; H54.7 Unspecified visual loss; H91.90 Unspecified hearing loss, unspecified ear; N39.3 Stress incontinence (female) (male); Z90.49 Acquired absence of other specified parts of digestive tract; Z88.5 Allergy status to narcotic agent; Z88.8 Allergy status to other drugs, medicaments and biological substances; M19.90 Unspecified osteoarthritis, unspecified site
CPT/HCPCS: 36415; 70450; 80053; 81001; 83690; 83735; 84443; 84484; 85025; 96360; 99285; J7030; 70544; 80048; 87086; 93306; 93880; A9270-GY

== ENCOUNTER 2019-01-06 17:51 | Inpatient (IN) | payer MEDICARE ==
--- NOTE | 2019-01-06 18:44 | EDM.PDOC ---
ED HPI GENERAL MEDICAL PROBLEM - General Chief Complaint: General Stated Complaint: CONFUSED Time Seen by Provider: 01/06/19 18:25 Source of Information: Reports: Patient, Old Records, RN History Limitations: Reports: No Limitations - History of Present Illness INITIAL COMMENTS - FREE TEXT/NARRATIVE: 68 yo female patient of Dr. Mcgrath was sent to the ER for some mild confusion. Apparently before Thursday was doing well. Was more confused on Thursday than today. On Thursday had a Head MRI, carotid US and blood and urine tests that showed some hypokalemia and hypomagnesemia. Her imaging was fairly unremarkable. She notes today that she cannot remember how to call on the phone. The numbers are forgotten before she gets them dialed. Onset: Sudden Onset Date: 01/03/19 Duration: Day(s): (4), Improving Location: Reports: Head Quality: Reports: Other (no pain) Severity: Moderate Improves with: Reports: Other (? time) Worsens with: Reports: Other (unknown) Context: Reports: Other (Has risk factors for vascular disease) Associated Symptoms: Reports: Confusion (mild). 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 (see below) (none) Headache Pain Score (Numeric/FACES): 2 - Related Data Allergies Allergy/AdvReac Type Severity Reaction Status Date / Time AMOS Inhibitors AdvReac Cough Verified 01/06/19 18:14 morphine AdvReac Itching Verified 01/06/19 18:14 Home Meds: Home Meds Cyclobenzaprine [Flexeril] 10 mg PO BEDTIME PRN 08/24/16 [History] Folic Acid 1 mg PO DAILY 08/24/16 [History] Furosemide [Lasix] 20 mg PO BID 08/24/16 [History] Hydroxyurea 1,000 mg PO DAILY 08/24/16 [History] Levothyroxine 125 mcg PO DAILY 08/24/16 [History] Metoprolol Tartrate 100 mg PO BID 08/24/16 [History] Omeprazole 20 mg PO DAILY 08/24/16 [History] amLODIPine [Norvasc] 5 mg PO BEDTIME 08/24/16 [History] cloNIDine [Catapres] 0.2 mg PO BID 08/24/16 [History] Gabapentin [Neurontin] 600 mg PO BID 04/18/17 [History] traMADol HCl [Tramadol HCl] 50 mg PO Q6H PRN 04/18/17 [History] Allopurinol [Zyloprim] 300 mg PO DAILY 07/29/18 [History] Aspirin [Halfprin] 81 mg PO DAILY 07/29/18 [History] Cholecalciferol (Vitamin D3) [Vitamin D3] 2,000 unit PO DAILY 07/29/18 [History] Melatonin 5 mg PO BEDTIME PRN 07/29/18 [History] Rivaroxaban [Xarelto] 20 mg PO DAILY 07/29/18 [History] Vitamin B Complex [B Complex] 1 tab PO DAILY 07/29/18 [History] atorvaSTATin Calcium [Atorvastatin Calcium] 40 mg PO BEDTIME 07/29/18 [History] sitaGLIPtin Phos/Metformin HCl [Janumet 50-500 MG] 1 tab PO BID 07/29/18 [ History] Potassium Chloride [K-Tab ER] 20 meq PO DAILY #0 01/04/19 [Rx] Potassium Chloride [Klor-Con M20] 20 meq PO BID tab.er 01/04/19 [Rx] metFORMIN [Glucophage] 500 mg PO BIDMEALS tablet 01/04/19 [Rx] Past Medical History HEENT History: Reports: Cataract, Hard of Hearing, Impaired Vision Other HEENT History: wears glasses; bilat hearing aides Cardiovascular History: Reports: Blood Clots/VTE/DVT, High Cholesterol, Hypertension, SOB on Exertion, Other (See Below) Other Cardiovascular History: thorasic aortic stent; fem-pop bypass Respiratory History: Reports: Pneumonia, Recurrent, Sleep Apnea, Other (See Below) Other Respiratory History: uses oxygen at night Gastrointestinal History: Reports: Cholelithiasis, Chronic Constipation, Diverticulosis, GERD, GI Bleed, Hemorrhoids Genitourinary History: Reports: Acute Renal Failure, Chronic Renal Insuffiency, Urinary Incontinence Other Genitourinary History: stress incontinence 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: Musculoskeletal History: Reports: Back Pain, Chronic, Fracture, Other (See Below ) Other Musculoskeletal History: bilat knee pain; bilat shoulder pain Neurological History: Reports: Neuropathy, 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 Endocrine/Metabolic History: Reports: Diabetes, Type II, Hypothyroidism, Obesity /BMI 30+ Hematologic History: Reports: Blood Transfusion(s), Other (See Below) Other Hematologic History: essential thrombocytosis Dermatologic History: Reports: Cellulitis - Infectious Disease History Infectious Disease History: Reports: Chicken Pox, Measles - Past Surgical History HEENT Surgical History: Reports: Naso-Sinus Surgery, Tonsillectomy Cardiovascular Surgical History: Reports: Vascular Surgery GI Surgical History: Reports: Cholecystectomy, Colonoscopy, Hernia Repair/Other Musculoskeletal Surgical History: Reports: Carpal Tunnel Social & Family History - Family History Family Medical History: Noncontributory Cardiac: Reports: Heart Failure, [place] Oncologic: Reports: Breast - Tobacco Use Smoking Status *Q: Never Smoker Second Hand Smoke Exposure: No - Caffeine Use Caffeine Use: Reports: Coffee Caffeine Use Comment: 1 cup of coffee daily - Recreational Drug Use Recreational Drug Use: No - Living Situation & Occupation Living situation: Reports: , Alone (lives alone, 2 years ago , had 3 Children.) ED ROS GENERAL - Review of Systems Review Of Systems: See Below Constitutional: Reports: No Symptoms HEENT: Reports: No Symptoms Respiratory: Reports: No Symptoms Cardiovascular: Reports: No Symptoms Endocrine: Reports: No Symptoms GI/Abdominal: Reports: No Symptoms : Reports: No Symptoms Musculoskeletal: Reports: No Symptoms Skin: Reports: No Symptoms Neurological: Reports: Confusion (mild). Denies: Headache, Paresthesia, Seizure , Syncope, Tingling, Tremors, Trouble Speaking, Difficulty Walking, Weakness, Change in Speech, Gait Disturbance Psychiatric: Reports: Confusion (mild). Denies: Cravings, Depression, Hallucinations ED EXAM, GENERAL - Physical Exam Exam: See Below Exam Limited By: No Limitations General Appearance: Alert, WD/WN, No Apparent Distress, Obese Eye Exam: Bilateral Eye: EOMI, Normal Inspection, PERRL Ears: Normal External Exam, Normal Canal, Hearing Grossly Normal, Normal TMs Ear Exam: Bilateral Ear: Auricle Normal, Canal Normal, TM normal Nose: Normal Inspection, No Blood Throat/Mouth: Normal Inspection, Normal Lips, Normal Oropharynx, Normal Voice, No Airway Compromise Head: Atraumatic, Normocephalic Neck: Normal Inspection, Non-Tender Respiratory/Chest: No Respiratory Distress, Lungs Clear, Normal Breath Sounds, No Accessory Muscle Use Cardiovascular: Regular Rate, Rhythm, No Edema GI/Abdominal: Normal Bowel Sounds, Soft, Non-Tender, No Distention Back Exam: Normal Inspection. No: CVA Tenderness (R), CVA Tenderness (L) Extremities: Normal Inspection, Normal Range of Motion, Non-Tender, No Pedal Edema Neurological: Alert, Oriented, Normal Cognition, Other (R visual field deficit) Psychiatric: Normal Affect, Normal Mood Skin Exam: Warm, Dry, Intact, Normal Color, No Rash Lymphatic: No Adenopathy Course - Vital Signs Text/Narrative:: Dr. Salazar notified @ [facility] called @ , Dr. Calzada on-call for neurology, [facility] closed due to the weather, Dr. Salazar made aware @ Last Recorded V/S: Last Vital Signs Temp 36.6 C 01/06/19 18:22 Pulse 92 01/06/19 18:22 Resp 16 01/06/19 18:22 BP 148/85 H 01/06/19 18:22 Pulse Ox 93 L 01/06/19 18:22 - Orders/Labs/Meds Orders: Active Orders 24 hr Category Date Time Status METHYLMALONIC ACID, SERUM Routine Lab 01/06/19 19:03 Received Magnesium Sulfate/Water [Magnesium Sulfate 2 GM in Med 01/06/19 18:48 Active Water 50 ML] 2 gm Premix Bag 1 bag IV ONETIME NS + KCl 20mEq/L [Normal Saline with 20 mEq KCl] 1,000 Med 01/06/19 21:00 Active ml IV ASDIRECTED Medication Orders Magnesium Sulfate 2 gm/ Premix 50 mls @ 12.5 mls/hr IV ONETIME ONE Stop: 01/06/19 22:47 Last Admin: 01/06/19 19:16 Dose: 12.5 mls/hr Potassium Chloride/Sodium Chloride (Normal Saline With 20 Meq Kcl) 1,000 mls @ 75 mls/hr IV ASDIRECTED CALI Labs: Laboratory Tests 01/06/19 01/06/19 01/06/19 Range/Units 18:18 18:19 18:27 WBC 8.0 (4.5-11.0) K/uL RBC 4.04 (3.30-5.50) M/uL Hgb 14.5 (12.0-15.0) g/dL Hct 41.1 (36.0-48.0) % MCV 102 H (80-98) fL MCH 36 H (27-31) pg MCHC 35 (32-36) % Plt Count 512 H (150-400) K/uL Potassium 2.8 L* (3.6-5.2) mmol/L Creatinine (0.6-1.0) mg/dL Est Cr Clr Drug Dosing mL/min Estimated GFR (MDRD) (>60) Glucose 145 H (74-106) mg/dL Magnesium 0.7 L (1.8-2.4) mg/dL 01/06/19 Range/Units 19:15 WBC (4.5-11.0) K/uL RBC (3.30-5.50) M/uL Hgb (12.0-15.0) g/dL Hct (36.0-48.0) % MCV (80-98) fL MCH (27-31) pg MCHC (32-36) % Plt Count (150-400) K/uL Potassium (3.6-5.2) mmol/L Creatinine 1.3 H (0.6-1.0) mg/dL Est Cr Clr Drug Dosing 36.23 mL/min Estimated GFR (MDRD) 40 L (>60) Glucose (74-106) mg/dL Magnesium (1.8-2.4) mg/dL Meds: Medications Generic Name Dose Route Start Last Admin Trade Name Freq PRN Reason Stop Dose Admin Magnesium Sulfate 2 gm/ Premix 50 mls @ 12.5 mls/hr 01/06/19 18:48 01/06/19 19:16 IV 01/06/19 22:47 12.5 mls/hr ONETIME ONE Administration Potassium Chloride/Sodium Chloride 1,000 mls @ 75 mls/hr 01/06/19 21:00 Normal Saline With 20 Meq Kcl IV ASDIRECTED CALI Discontinued Medications Generic Name Dose Route Start Last Admin Trade Name Freq PRN Reason Stop Dose Admin Magnesium Oxide 800 mg 01/06/19 18:48 01/06/19 19:06 Magnesium Oxide PO 01/06/19 18:49 800 mg ONETIME ONE Administration Potassium Chloride 40 meq 01/06/19 18:47 01/06/19 19:05 Potassium Chloride PO 01/06/19 18:48 40 meq ONETIME ONE Administration - Radiology Interpretation Free Text/Narrative:: Head CT without contrast-evolving infarct between the occipital and parietal regions on the left. CT Results Date: 01/06/19 CT Results Time: 20:40 Departure - Departure Time of Disposition: 21:10 Disposition: Admitted As Inpatient 64 Clinical Impression: Hypokalemia, Hypomagnesemia, CVA, Cerebrovascular accident Cerebrovascular accident (CVA) Qualifiers: CVA mechanism: unspecified Qualified Code(s): I63.9 - Cerebral infarction, unspecified - Discharge Information *PRESCRIPTION DRUG MONITORING PROGRAM REVIEWED*: No *COPY OF PRESCRIPTION DRUG MONITORING REPORT IN PATIENT SUPRIYA: No Referrals: Dutch Salazar Sr, MD [Primary Care Provider] - Forms: ED Department Discharge - My Orders Last 24 Hours: My Active Orders 01/06/19 18:48 Magnesium Sulfate/Water [Magnesium Sulfate 2 GM in Water 50 ML] 2 gm Premix Bag 1 bag IV ONETIME 01/06/19 19:03 METHYLMALONIC ACID, SERUM Routine 01/06/19 21:00 NS + KCl 20mEq/L [Normal Saline with 20 mEq KCl] 1,000 ml IV ASDIRECTED - Assessment/Plan Last 24 Hours: My Active Orders 01/06/19 18:48 Magnesium Sulfate/Water [Magnesium Sulfate 2 GM in Water 50 ML] 2 gm Premix Bag 1 bag IV ONETIME 01/06/19 19:03 METHYLMALONIC ACID, SERUM Routine 01/06/19 21:00 NS + KCl 20mEq/L [Normal Saline with 20 mEq KCl] 1,000 ml IV ASDIRECTED
[2019-01-06] MEDS ORDERED: Potassium Chloride 10 MEQ Cap.ER PO ONE (18:47)
[2019-01-06] MEDS ORDERED: Magnesium Sulfate/Water 2 GM in Premix Bag 1 BAG IV ONE (18:48)
[2019-01-06] MEDS ORDERED: Magnesium Oxide 400 MG Tab PO ONE (18:48)
--- NOTE | 2019-01-06 20:23 | CRLCT ---
INDICATION: Confusion. Right visual field deficit. TECHNIQUE: CT head without contrast. COMPARISON: January 03, 2019. FINDINGS: CSF spaces: Within normal limits for age. Brain parenchyma: Areas of abnormal low attenuation in the watershed region between the left parietal and occipital lobes has become more distinct on today`s exam and is suspicious for an evolving ischemic infarct. No sign of ischemia elsewhere. -white matter distinction is otherwise intact. No hemorrhage or mass effect. Skull base and calvarium: The visualized paranasal sinuses and mastoid air cells demonstrate no acute or significant findings. The visualized orbits are grossly unremarkable. No skull fractures. IMPRESSION: Evolving acute or subacute ischemic infarct is suspected in the watershed region between the left parietal and occipital lobes. No other acute findings or changes. Dictated by Dennis Lemus MD @ 01/06/2019 8:22:22 PM Please note that all CT scans at this facility use dose modulation, iterative reconstruction, and/or weight-based dosing when appropriate to reduce radiation dose to as low as reasonably achievable. Dictated by: Dennis Lemus MD @ 01/06/2019 20:22:48 (Electronically Signed)
[2019-01-06] MEDS: NS + KCl 20mEq/L 1,000 ML IV SCH (21:26)
--- NOTE | 2019-01-06 22:22 | PCM.HP ---
H&P History of Present Illness - General Date of Service: 01/06/19 Source of Information: Patient, EMS, Family - History of Present Illness Initial Comments - Free Text/Narative: Bipin was sent home 3 days ago after having a spell of memory loss and was admitted after having a CT of the head which was negative. The next morning she had a MRI of the head which was neg. Also had a Carotid artery Doppler and an Echocardiogram which was negative. She cleared in less than 24 hrs and was discharged home with instruction to call me if any symptoms develop. The family called this afternoon saying that she had recurrent symptoms. I told the family to come to the ER. I then called back the neurologist who advised another CT Which was done and showed an ischemic CVA in progress. Transfer any direction was refused by EMS due to bad weather. She will be admitted and will be sent to [place] or [place] as soon as the weather allows transfer. Onset of Symptoms: Reports: Gradual Location: Reports: Head Headache Pain Score (Numeric/FACES): 2 - Related Data Allergies/Adverse Reactions: Allergies Allergy/AdvReac Type Severity Reaction Status Date / Time AMOS Inhibitors AdvReac Cough Verified 01/06/19 23:13 morphine AdvReac Itching Verified 01/06/19 23:13 Home Medications: Home Meds Cyclobenzaprine [Flexeril] 10 mg PO BEDTIME PRN 08/24/16 [History] Folic Acid 1 mg PO DAILY 08/24/16 [History] Furosemide [Lasix] 20 mg PO BID 08/24/16 [History] Hydroxyurea 1,000 mg PO DAILY 08/24/16 [History] Levothyroxine 125 mcg PO DAILY 08/24/16 [History] Metoprolol Tartrate 100 mg PO BID 08/24/16 [History] Omeprazole 20 mg PO DAILY 08/24/16 [History] amLODIPine [Norvasc] 5 mg PO BEDTIME 08/24/16 [History] cloNIDine [Catapres] 0.2 mg PO BID 08/24/16 [History] Gabapentin [Neurontin] 600 mg PO BID 04/18/17 [History] traMADol HCl [Tramadol HCl] 50 mg PO Q6H PRN 04/18/17 [History] Allopurinol [Zyloprim] 300 mg PO DAILY 07/29/18 [History] Aspirin [Halfprin] 81 mg PO DAILY 07/29/18 [History] Cholecalciferol (Vitamin D3) [Vitamin D3] 2,000 unit PO DAILY 07/29/18 [History] Melatonin 5 mg PO BEDTIME PRN 07/29/18 [History] Rivaroxaban [Xarelto] 20 mg PO DAILY 07/29/18 [History] Vitamin B Complex [B Complex] 1 tab PO DAILY 07/29/18 [History] atorvaSTATin Calcium [Atorvastatin Calcium] 40 mg PO BEDTIME 07/29/18 [History] sitaGLIPtin Phos/Metformin HCl [Janumet 50-500 MG] 1 tab PO BID 07/29/18 [ History] Potassium Chloride [K-Tab ER] 20 meq PO DAILY #0 01/04/19 [Rx] Potassium Chloride [Klor-Con M20] 20 meq PO BID tab.er 01/04/19 [Rx] metFORMIN [Glucophage] 500 mg PO BIDMEALS tablet 01/04/19 [Rx] Past Medical History HEENT History: Reports: Cataract, Hard of Hearing, Impaired Vision Other HEENT History: wears glasses; bilat hearing aides Cardiovascular History: Reports: Blood Clots/VTE/DVT, High Cholesterol, Hypertension, SOB on Exertion, Other (See Below) Other Cardiovascular History: thorasic aortic stent; fem-pop bypass Respiratory History: Reports: Pneumonia, Recurrent, Sleep Apnea, Other (See Below) Other Respiratory History: uses oxygen at night Gastrointestinal History: Reports: Cholelithiasis, Chronic Constipation, Diverticulosis, GERD, GI Bleed, Hemorrhoids Genitourinary History: Reports: Acute Renal Failure, Chronic Renal Insuffiency, Urinary Incontinence Other Genitourinary History: stress incontinence DREDGE MATE History: Reports: Musculoskeletal History: Reports: Back Pain, Chronic, Fracture, Other (See Below ) Other Musculoskeletal History: bilat knee pain; bilat shoulder pain Neurological History: Reports: Neuropathy, 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 Endocrine/Metabolic History: Reports: Diabetes, Type II, Hypothyroidism, Obesity /BMI 30+ Hematologic History: Reports: Blood Transfusion(s), Other (See Below) Other Hematologic History: essential thrombocytosis Dermatologic History: Reports: Cellulitis - Infectious Disease History Infectious Disease History: Reports: Chicken Pox, Measles - Past Surgical History HEENT Surgical History: Reports: Naso-Sinus Surgery, Tonsillectomy Cardiovascular Surgical History: Reports: Vascular Surgery GI Surgical History: Reports: Cholecystectomy, Colonoscopy, Hernia Repair/Other Musculoskeletal Surgical History: Reports: Carpal Tunnel Social & Family History - Family History Family Medical History: Noncontributory Cardiac: Reports: Heart Failure, CT Oncologic: Reports: Breast - Tobacco Use Smoking Status *Q: Never Smoker Second Hand Smoke Exposure: No - Caffeine Use Caffeine Use: Reports: Coffee Caffeine Use Comment: 1 cup of coffee daily - Recreational Drug Use Recreational Drug Use: No - Living Situation & Occupation Living situation: Reports: , Alone (lives alone, 2 years ago , had 3 Children.) H&P Review of Systems - Review of Systems: Review Of Systems: See Below General: Reports: No Symptoms HEENT: Reports: No Symptoms Pulmonary: Reports: No Symptoms Cardiovascular: Reports: No Symptoms Gastrointestinal: Reports: No Symptoms Genitourinary: Reports: No Symptoms Musculoskeletal: Reports: No Symptoms Skin: Reports: No Symptoms Psychiatric: Reports: No Symptoms Neurological: Reports: No Symptoms Exam - Exam Exam: See Below - Vital Signs Vital Signs: Last Vital Signs Temp 97.9 F 01/06/19 18:22 Pulse 92 01/06/19 18:22 Resp 16 01/06/19 18:22 BP 148/85 H 01/06/19 18:22 Pulse Ox 93 L 01/06/19 18:22 Weight: 233 lb 7.512 oz - Exam General: Alert HEENT: PERRLA, Conjunctiva Clear, EACs Clear, EOMI, Hearing Intact, Mucosa Moist & [place], Nares Patent, Normal Nasal Septum, Posterior Pharynx Clear, TMs Clear, Other (There is partial loss of vision of the right eye) Neck: Supple, Trachea Midline, 2 Lungs: Clear to Auscultation, Normal Respiratory Effort Cardiovascular: Regular Rate, Regular Rhythm GI/Abdominal Exam: Normal Bowel Sounds, Soft, Non-Tender, No Organomegaly, No Distention, No Abnormal Bruit, No Mass, Pelvis Stable Extremities: Normal Inspection, Normal Range of Motion, Non-Tender, No Pedal Edema, Normal Capillary Refill Peripheral Pulses: 1+: Carotid (L), Carotid (R), Radial (L), Radial (R) Skin: Warm, Dry, Intact Neurological: Strength Equal Bilateral, Normal Gait Neuro Extensive - Mental Status: Alert, Oriented x3, Other (Memory and recollection of numbers is challanged not normal.) Neuro Extensive - Motor, Sensory, Reflexes: Other (Partial Loss of vision on the right) DTR: 1+: Bicep (L), Bicep (R), Patella (L), Patella (R) - Patient Data Lab Results Last 24 hrs: Laboratory Results - last 24 hr 01/06/19 01/06/19 01/06/19 Range/Units 18:18 18:19 18:27 WBC 8.0 (4.5-11.0) K/uL RBC 4.04 (3.30-5.50) M/uL Hgb 14.5 (12.0-15.0) g/dL Hct 41.1 (36.0-48.0) % MCV 102 H (80-98) fL MCH 36 H (27-31) pg MCHC 35 (32-36) % Plt Count 512 H (150-400) K/uL Potassium 2.8 L* (3.6-5.2) mmol/L Creatinine (0.6-1.0) mg/dL Est Cr Clr Drug Dosing mL/min Estimated GFR (MDRD) (>60) Glucose 145 H (74-106) mg/dL Magnesium 0.7 L (1.8-2.4) mg/dL 01/06/19 Range/Units 19:15 WBC (4.5-11.0) K/uL RBC (3.30-5.50) M/uL Hgb (12.0-15.0) g/dL Hct (36.0-48.0) % MCV (80-98) fL MCH (27-31) pg MCHC (32-36) % Plt Count (150-400) K/uL Potassium (3.6-5.2) mmol/L Creatinine 1.3 H (0.6-1.0) mg/dL Est Cr Clr Drug Dosing 36.23 mL/min Estimated GFR (MDRD) 40 L (>60) Glucose (74-106) mg/dL Magnesium (1.8-2.4) mg/dL Result Diagrams: 01/06/19 18:27 01/07/19 07:25 Problem List Initiated/Reviewed/Updated: Yes Orders Last 24hrs: Active Orders 24 hr Category Date Time Status METHYLMALONIC ACID, SERUM Routine Lab 01/06/19 19:03 Received Magnesium Sulfate/Water [Magnesium Sulfate 2 GM in Med 01/06/19 18:48 Active Water 50 ML] 2 gm Premix Bag 1 bag IV ONETIME NS + KCl 20mEq/L [Normal Saline with 20 mEq KCl] 1,000 Med 01/06/19 21:00 Active ml IV ASDIRECTED Medication Orders Magnesium Sulfate 2 gm/ Premix 50 mls @ 12.5 mls/hr IV ONETIME ONE Stop: 01/06/19 22:47 Last Admin: 01/06/19 19:16 Dose: 12.5 mls/hr Potassium Chloride/Sodium Chloride (Normal Saline With 20 Meq Kcl) 1,000 mls @ 75 mls/hr IV ASDIRECTED CALI Last Admin: 01/06/19 21:26 Dose: 75 mls/hr Assessment/Plan Comment:: Assessment/Plan #1. Evolving ischemic CVA. Unable to transfer and will transfer as soon as possible. #2. Hypokalemia: Will supplement with K. #3. Chronic back Pain: #4. Thrombocytosis: Continue with Meds. #5. Morbid Obesity: #6. DVT, chronic: #7. CRF: #8. Deg. Joint disease: #9. GERD: #10. HLD: Continue with Lipitor #11. Hypothyroidism: Will continue with thyroid replacement. #12. DM II: Continue with metformin.
[2019-01-06] MEDS ORDERED: Non-Formulary Medication 1 Each (Melatonin [Melatonin] 5 MG) PO PRN (22:36)
[2019-01-06] MEDS ORDERED: Cyclobenzaprine 10 MG Tab PO PRN (22:36)
[2019-01-06] MEDS ORDERED: HYDROXYUREA 1000 MG PO SCH (22:45)
[2019-01-06] MEDS ORDERED: Aspirin 81 MG Tab.EC PO SCH (22:45)
[2019-01-06] MEDS ORDERED: Metoprolol Tartrate 50 MG Tab PO SCH (23:45)
[2019-01-06] MEDS ORDERED: Rivaroxaban 10 MG Tab PO SCH (23:45)
[2019-01-06] MEDS ORDERED: Potassium Chloride 20 MEQ Tab.ER PO SCH (23:45)
[2019-01-07] MEDS ORDERED: Melatonin 3 MG Tab PO PRN (00:01)
[2019-01-07] MEDS ORDERED: Gabapentin 300 MG Cap ONE (04:49)
[2019-01-07] MEDS: NS + KCl 20mEq/L 1,000 ML IV SCH (08:18)
[2019-01-07 08:39] VITALS: BP 118/61
--- NOTE | 2019-01-07 08:46 | PCM.DCSUM1 ---
Discharge Summary - Hospital Course HPI Initial Comments: Bipin was sent home 3 days ago after having a spell of memory loss and was admitted after having a CT of the head which was negative. The next morning she had a MRI of the head which was neg. Also had a Carotid artery Doppler and an Echocardiogram which was negative. She cleared in less than 24 hrs and was discharged home with instruction to call me if any symptoms develop. The family called saying that she had recurrent symptoms. I told the family to come to the ER. I then called back the neurologist who advised another CT Which was done and showed an ischemic CVA in progress. Transfer any direction was refused by EMS due to bad weather. She was admitted and will be sent to [place] as the weather allows transfer this morning. Diagnosis: Stroke: Yes Modified Moody Scale: Slight Disable;Unable to Carry Out Prev Act.Able to Look After Affairs Modified Moody Scale Score: 2 - Discharge Data Discharge Date: 01/07/19 Discharge Disposition: DC/Tfer to Acute Hospital 02 Condition: Fair - Patient Summary/Data Hospital Course: Admitted and closely watched over the night and no new neuro deficits were found. Roads are now open and will be transferred to [facility] in [place]. - Patient Instructions Diet: Heart Healthy Diet - Discharge Plan *PRESCRIPTION DRUG MONITORING PROGRAM REVIEWED*: No *COPY OF PRESCRIPTION DRUG MONITORING REPORT IN PATIENT SUPRIYA: No Home Medications: Home Meds Cyclobenzaprine [Flexeril] 10 mg PO BEDTIME PRN 08/24/16 [History] Folic Acid 1 mg PO DAILY 08/24/16 [History] Furosemide [Lasix] 20 mg PO BID 08/24/16 [History] Hydroxyurea 1,000 mg PO DAILY 08/24/16 [History] Levothyroxine 125 mcg PO DAILY 08/24/16 [History] Metoprolol Tartrate 100 mg PO BID 08/24/16 [History] Omeprazole 20 mg PO DAILY 08/24/16 [History] amLODIPine [Norvasc] 5 mg PO BEDTIME 08/24/16 [History] Gabapentin [Neurontin] 600 mg PO BID 04/18/17 [History] Allopurinol [Zyloprim] 300 mg PO DAILY 07/29/18 [History] Aspirin [Halfprin] 81 mg PO DAILY 07/29/18 [History] Cholecalciferol (Vitamin D3) [Vitamin D3] 2,000 unit PO DAILY 07/29/18 [History] Melatonin 5 mg PO BEDTIME PRN 07/29/18 [History] Rivaroxaban [Xarelto] 20 mg PO DAILY 07/29/18 [History] atorvaSTATin Calcium [Atorvastatin Calcium] 40 mg PO BEDTIME 07/29/18 [History] Potassium Chloride [K-Tab ER] 20 meq PO DAILY #0 01/04/19 [Rx] Potassium Chloride [Klor-Con M20] 20 meq PO BID tab.er 01/04/19 [Rx] Forms: ED Department Discharge Referrals: Dutch Salazar Sr, MD [Primary Care Provider] - - Discharge Summary/Plan Comment DC Time >30 min.: No Discharge Summary/Plan Comment: Assessment/Plan #1. Evolving ischemic CVA. Transferred to [facility] in [place] #2. Hypokalemia: Need to continue to correct #3. Chronic back Pain: #4. Thrombocytosis: Continue with Meds. #5. Morbid Obesity: #6. DVT, chronic: #7. CRF: Cret. this morning 1.1 and eGFR 49 #8. Deg. Joint disease: #9. GERD: #10. HLD: Continue with Lipitor #11. Hypothyroidism: Will continue with thyroid replacement. #12. DM II: Continue with meds but stop Metformin temporally as anticipated dye infusion for CVA.. - General Info Functional Status: Reports: Pain Controlled - Review of Systems General: Reports: Weakness HEENT: Reports: No Symptoms Pulmonary: Reports: No Symptoms Cardiovascular: Reports: No Symptoms Gastrointestinal: Reports: No Symptoms Genitourinary: Reports: No Symptoms Musculoskeletal: Reports: No Symptoms Skin: Reports: No Symptoms Neurological: Reports: Other (neuro findings come and go except the vision change in the right eye.) Psychiatric: Reports: No Symptoms - Patient Data Vitals - Most Recent: Last Vital Signs Temp 98.1 F 01/07/19 07:00 Pulse 67 01/07/19 08:00 Resp 14 01/07/19 08:00 BP 118/61 01/07/19 08:00 Pulse Ox 93 L 01/07/19 08:00 Weight - Most Recent: 233 lb 7.512 oz Lab Results - Last 24 hrs: Laboratory Results - last 24 hr 01/06/19 01/06/19 01/06/19 Range/Units 18:18 18:19 18:27 WBC 8.0 (4.5-11.0) K/uL RBC 4.04 (3.30-5.50) M/uL Hgb 14.5 (12.0-15.0) g/dL Hct 41.1 (36.0-48.0) % MCV 102 H (80-98) fL MCH 36 H (27-31) pg MCHC 35 (32-36) % Plt Count 512 H (150-400) K/uL Sodium (140-148) mmol/L Potassium 2.8 L* (3.6-5.2) mmol/L Chloride (100-108) mmol/L Carbon Dioxide (21-32) mmol/L Anion Gap (5.0-14.0) mmol/L BUN (7-18) mg/dL Creatinine (0.6-1.0) mg/dL Est Cr Clr Drug Dosing mL/min Estimated GFR (MDRD) (>60) Glucose 145 H (74-106) mg/dL Calcium (8.5-10.1) mg/dL Magnesium 0.7 L (1.8-2.4) mg/dL 01/06/19 01/07/19 Range/Units 19:15 07:25 WBC (4.5-11.0) K/uL RBC (3.30-5.50) M/uL Hgb (12.0-15.0) g/dL Hct (36.0-48.0) % MCV (80-98) fL MCH (27-31) pg MCHC (32-36) % Plt Count (150-400) K/uL Sodium 139 L (140-148) mmol/L Potassium 3.5 L (3.6-5.2) mmol/L Chloride 104 (100-108) mmol/L Carbon Dioxide 27 (21-32) mmol/L Anion Gap 11.5 (5.0-14.0) mmol/L BUN 15 (7-18) mg/dL Creatinine 1.3 H 1.1 H (0.6-1.0) mg/dL Est Cr Clr Drug Dosing 36.23 42.82 mL/min Estimated GFR (MDRD) 40 L 49 L (>60) Glucose 141 H (74-106) mg/dL Calcium 8.0 L (8.5-10.1) mg/dL Magnesium 1.4 L D (1.8-2.4) mg/dL Med Orders - Current: Current Medications Allopurinol (Zyloprim) 300 mg PO DAILY [facility] Amlodipine Besylate (Norvasc) 5 mg PO BEDTIME [facility] Aspirin (Halfprin) 81 mg PO DAILY [facility] Last Admin: 01/07/19 00:36 Dose: 81 mg Atorvastatin Calcium (Lipitor) 40 mg PO BEDTIME [facility] Cholecalciferol (Vitamin D3) 2,000 units PO DAILY [facility] Cyclobenzaprine HCl (Flexeril) 10 mg PO BEDTIME PRN PRN Reason: Spasms Folic Acid (Folic Acid) 1 mg PO DAILY [facility] Furosemide (Lasix) 20 mg PO BIDDIURETIC [facility] Gabapentin (Neurontin) 600 mg PO BID [facility] Last Admin: 01/07/19 04:51 Dose: 600 mg Potassium Chloride/Sodium Chloride (Normal Saline With 20 Meq Kcl) 1,000 mls @ 75 mls/hr IV ASDIRECTED [facility] Last Admin: 01/07/19 08:18 Dose: 75 mls/hr Levothyroxine Sodium 100 mcg/ (Levothyroxine Sodium 25 mcg) 125 mcg PO ACBREAKFAST [facility] Melatonin (Melatonin) 6 mg PO BEDTIME PRN PRN Reason: Insomnia Last Admin: 01/07/19 02:10 Dose: 6 mg Metoprolol Tartrate (Lopressor) 100 mg PO BID [facility] Last Admin: 01/07/19 00:36 Dose: 100 mg Non-Formulary Medication (Hydroxyurea [Hydroxyurea]) 1,000 mg PO DAILY [facility] Potassium Chloride (Klor-Con M20) 20 meq PO BID [facility] Last Admin: 01/07/19 00:36 Dose: 20 meq Rivaroxaban (Xarelto) 20 mg PO WITHDINNER [facility] Last Admin: 01/07/19 00:36 Dose: 20 mg Discontinued Medications Gabapentin (Neurontin) Confirm Administered Dose 600 mg .ROUTE .STK-MED ONE Stop: 01/07/19 04:50 Last Admin: 01/07/19 04:52 Dose: Not Given Magnesium Sulfate 2 gm/ Premix 50 mls @ 12.5 mls/hr IV ONETIME ONE Stop: 01/06/19 22:47 Last Admin: 01/06/19 19:16 Dose: 12.5 mls/hr Levothyroxine Sodium (Synthroid) 125 mcg PO DAILY [facility] Magnesium Oxide (Magnesium Oxide) 800 mg PO ONETIME ONE Stop: 01/06/19 18:49 Last Admin: 01/06/19 19:06 Dose: 800 mg Non-Formulary Medication (Melatonin [Melatonin]) 5 mg PO BEDTIME PRN PRN Reason: Sleep Potassium Chloride (Potassium Chloride) 40 meq PO ONETIME ONE Stop: 01/06/19 18:48 Last Admin: 01/06/19 19:05 Dose: 40 meq - Exam General: Reports: Alert, Oriented HEENT: Reports: Pupils Equal, Pupils Reactive, EOMI, Mucous Membr. Moist/[place] Neck: Reports: Supple Lungs: Reports: Clear to Auscultation, Normal Respiratory Effort Cardiovascular: Reports: Regular Rate, Regular Rhythm GI/Abdominal Exam: Normal Bowel Sounds, Soft, Non-Tender, No Organomegaly, No Distention, No Abnormal Bruit, No Mass, Pelvis Stable Back Exam: Reports: Vertebral Tenderness Extremities: Normal Inspection, Normal Range of Motion Skin: Reports: Warm, Dry, Intact Neurological: Reports: No New Focal Deficit, Strength Equal Bilateral, Reflexes Equal Bilateral, Sensation Intact Psy/Mental Status: Reports: Alert, Normal Mood
[2019-01-07] MEDS ORDERED: Cholecalciferol (Vitamin D3) 1,000 Unit Tab PO SCH (09:00)
[2019-01-07] MEDS ORDERED: Levothyroxine 100 MCG, Levothyroxine 25 MCG PO SCH ×2 (09:00)
[2019-01-07] MEDS ORDERED: Furosemide 20 MG Tab PO SCH (09:00)
[2019-01-07] MEDS ORDERED: Allopurinol 300 MG Tab PO SCH (09:00)
[2019-01-07] MEDS ORDERED: Gabapentin 300 MG Cap PO SCH (09:00)
[2019-01-07] MEDS ORDERED: Levothyroxine 50 MCG Tab PO SCH (09:00)
[2019-01-07] MEDS ORDERED: Folic Acid 1 MG Tab PO SCH (09:00)
[2019-01-07] MEDS ORDERED: amLODIPine 5 MG Tab PO SCH (21:00)
[2019-01-07] MEDS ORDERED: atorvaSTATin 20 MG Tab PO SCH (21:00)
== END 2019-01-07 08:30 | DRG 66 ==
LOC: JP.ED 17:51 → JP.ICU 22:33
PROVIDERS: ADMIT Internal Medicine; ATTEND Internal Medicine
DX: I63.9 Cerebral infarction, unspecified (principal); I12.9 Hypertensive chronic kidney disease with stage 1 through stage 4 chronic kidney disease, or unspecified chronic kidney disease; E11.22 Type 2 diabetes mellitus with diabetic chronic kidney disease; N18.9 Chronic kidney disease, unspecified; E03.9 Hypothyroidism, unspecified; Z79.84 Long term (current) use of oral hypoglycemic drugs; E87.6 Hypokalemia; E83.42 Hypomagnesemia; R41.0 Disorientation, unspecified; M19.90 Unspecified osteoarthritis, unspecified site; Z86.718 Personal history of other venous thrombosis and embolism; G47.30 Sleep apnea, unspecified; Z99.81 Dependence on supplemental oxygen; K21.9 Gastro-esophageal reflux disease without esophagitis; K59.09 Other constipation; G89.29 Other chronic pain; E66.01 Morbid (severe) obesity due to excess calories; Z68.38 Body mass index [BMI] 38.0-38.9, adult; D47.3 Essential (hemorrhagic) thrombocythemia; E78.5 Hyperlipidemia, unspecified; Z87.01 Personal history of pneumonia (recurrent); H54.7 Unspecified visual loss; H91.90 Unspecified hearing loss, unspecified ear; Z79.82 Long term (current) use of aspirin; Z79.01 Long term (current) use of anticoagulants; Z88.5 Allergy status to narcotic agent; Z88.8 Allergy status to other drugs, medicaments and biological substances
CPT/HCPCS: 36415; 70450; 82565; 82947; 83735; 83921; 84132; 85027; 96361; 96365; 96366; 99285; A9270 ×2; J3475; J3480; 80048; 82962

== ENCOUNTER 2019-01-25 20:33 | Emergency (ER) | payer MEDICARE ==
[2019-01-25] MEDS ORDERED: Acetaminophen 325 MG Tab PO ONE (21:24)
--- NOTE | 2019-01-25 22:19 | EDM.PDOC ---
ED HPI GENERAL MEDICAL PROBLEM - General Chief Complaint: Headache Stated Complaint: HEADACHE Time Seen by Provider: 01/25/19 21:18 Source of Information: Reports: Patient, Family, Old Records, RN Notes Reviewed History Limitations: Reports: No Limitations - History of Present Illness INITIAL COMMENTS - FREE TEXT/NARRATIVE: 68-year-old female presents to emergency department today complaint of headache , she recently had cerebrovascular accidents estimated January [id number] left parietal and occipital lobe, she states she did have a headache While in the hospital dealing with this CVA and that resolved and then today starting having a headache that was similar. This headache has been going on for 4 hours Headache Pain Score (Numeric/FACES): 3 - Related Data Allergies Allergy/AdvReac Type Severity Reaction Status Date / Time acetaminophen [From Vicodin] Allergy Cannot Verified 01/25/19 20:59 Remember hydrocodone [From Vicodin] Allergy Cannot Verified 01/25/19 20:59 Remember trazodone Allergy Cannot Verified 01/25/19 20:59 Remember verapamil Allergy Cannot Verified 01/25/19 20:59 Remember AMOS Inhibitors AdvReac Cough Verified 01/25/19 20:59 morphine AdvReac Itching Verified 01/25/19 20:59 Home Meds: Home Meds Cyclobenzaprine [Flexeril] 10 mg PO BEDTIME PRN 08/24/16 [History] Folic Acid 1 mg PO DAILY 08/24/16 [History] Furosemide [Lasix] 20 mg PO BID 08/24/16 [History] Hydroxyurea 1,000 mg PO DAILY 08/24/16 [History] Levothyroxine 125 mcg PO DAILY 08/24/16 [History] Metoprolol Tartrate 100 mg PO BID 08/24/16 [History] Omeprazole 20 mg PO DAILY 08/24/16 [History] amLODIPine [Norvasc] 5 mg PO BEDTIME 08/24/16 [History] Gabapentin [Neurontin] 600 mg PO BID 04/18/17 [History] Allopurinol [Zyloprim] 300 mg PO DAILY 07/29/18 [History] Aspirin [Halfprin] 81 mg PO BID 07/29/18 [History] Cholecalciferol (Vitamin D3) [Vitamin D3] 2,000 unit PO DAILY 07/29/18 [History] Melatonin 5 mg PO BEDTIME PRN 07/29/18 [History] Rivaroxaban [Xarelto] 20 mg PO DAILY 07/29/18 [History] atorvaSTATin Calcium [Atorvastatin Calcium] 40 mg PO BEDTIME 07/29/18 [History] Cyanocobalamin (Vitamin B-12) [Vitamin B-12] 100 mcg PO DAILY 01/25/19 [History] Magnesium Oxide [Magnesium] 500 mg PO BID 01/25/19 [History] Potassium Chloride 10 meq PO DAILY 01/25/19 [History] cloNIDine [Catapres] 0.2 mg PO BID 01/25/19 [History] glipiZIDE [Glucotrol] 2.5 mg PO DAILY 01/25/19 [History] traMADol [Ultram] 50 mg PO ASDIRECTED PRN 01/25/19 [History] Past Medical History HEENT History: Reports: Cataract, Hard of Hearing, Impaired Vision Other HEENT History: wears glasses; bilat hearing aides Cardiovascular History: Reports: Arrhythmia, Blood Clots/VTE/DVT, CAD, Heart Failure, High Cholesterol, Hypertension, PVD, SOB on Exertion, Stents, Other ( See Below) Other Cardiovascular History: arterial thrombosis Respiratory History: Reports: Pneumonia, Recurrent, Sleep Apnea, SOB, Other ( See Below) Other Respiratory History: uses oxygen at night Gastrointestinal History: Reports: Cholelithiasis, Chronic Constipation, Diverticulosis, Gastritis, GERD, GI Bleed, Hemorrhoids Genitourinary History: Reports: Acute Renal Failure, Chronic Renal Insuffiency, Urinary Incontinence, UTI, Recurrent Other Genitourinary History: stress incontinence 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: Musculoskeletal History: Reports: Back Pain, Chronic, Fracture, Fibromyalgia, Other (See Below) Other Musculoskeletal History: bilat knee pain; bilat shoulder pain, rotator cuff tear Neurological History: Reports: CVA, Neuropathy, 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 Endocrine/Metabolic History: Reports: Diabetes, Type II, Hypothyroidism, Obesity /BMI 30+ Hematologic History: Reports: Anticoagulation Therapy, Blood Transfusion(s), Other (See Below) Other Hematologic History: essential thrombocytosis Dermatologic History: Reports: Cellulitis - Infectious Disease History Infectious Disease History: Reports: Chicken Pox, Measles, Shingles - Past Surgical History HEENT Surgical History: Reports: Naso-Sinus Surgery, Tonsillectomy Cardiovascular Surgical History: Reports: Vascular Surgery Other Cardiovascular Surgeries/Procedures: thorasic aortic stent; fem-pop bypass GI Surgical History: Reports: Cholecystectomy, Colonoscopy, Hernia Repair/Other Musculoskeletal Surgical History: Reports: Carpal Tunnel Social & Family History - Family History Family Medical History: Noncontributory Cardiac: Reports: Heart Failure, [place] Oncologic: Reports: Breast - Tobacco Use Smoking Status *Q: Never Smoker - Caffeine Use Caffeine Use: Reports: Coffee Caffeine Use Comment: 1 cup of coffee daily - Recreational Drug Use Recreational Drug Use: No - Living Situation & Occupation Living situation: Reports: , Alone (lives alone, 2 years ago , had 3 Children.) ED ROS GENERAL - Review of Systems Review Of Systems: See Below Constitutional: Reports: No Symptoms HEENT: Reports: No Symptoms Respiratory: Reports: No Symptoms Cardiovascular: Reports: No Symptoms GI/Abdominal: Reports: No Symptoms : Reports: No Symptoms Musculoskeletal: Reports: No Symptoms Skin: Reports: No Symptoms Neurological: Reports: Headache - Physical Exam Exam: See Below Exam Limited By: No Limitations General Appearance: Alert, WD/WN, No Apparent Distress Eye Exam: Bilateral Eye: EOMI, Normal Fundi, Normal Inspection, PERRL Throat/Mouth: Normal Inspection, Normal Lips, Normal Teeth, Normal Gums, Normal Oropharynx, Normal Voice, No Airway Compromise Head Exam: Atraumatic, Normocephalic Neck: Normal Inspection, Supple, Non-Tender, Full Range of Motion Respiratory/Chest: No Respiratory Distress, Lungs Clear, Normal Breath Sounds Cardiovascular: Regular Rate, Rhythm, No Murmur GI/Abdominal: Soft, Non-Tender Neuro Exam (Abbreviated): Alert, Oriented, CN II-XII Intact, Normal Cognition, Other (Power is 5 x 5 upper and lower extremities no focal neurologic deficit) Course - Vital Signs Last Recorded V/S: Last Vital Signs Temp 100.3 F 01/25/19 21:14 Pulse 71 01/26/19 02:35 Resp 17 01/26/19 02:35 BP 114/71 01/26/19 02:35 Pulse Ox 94 L 01/26/19 02:35 - Orders/Labs/Meds Orders: Active Orders 24 hr Category Date Time Status Head wo Cont [CT] Stat Exams 01/25/19 21:24 Taken Labs: Laboratory Tests 01/25/19 01/25/19 01/25/19 Range/Units 21:39 21:41 21:41 WBC 12.1 H (4.5-11.0) K/uL RBC 3.76 (3.30-5.50) M/uL Hgb 13.8 (12.0-15.0) g/dL Hct 39.8 (36.0-48.0) % MCV 106 H (80-98) fL MCH 37 H (27-31) pg MCHC 35 (32-36) % Plt Count 404 H (150-400) K/uL Neut % (Auto) 90 H (36-66) % Lymph % (Auto) 4 L (24-44) % [place] % (Auto) 4 (2-6) % Eos % (Auto) 2 (2-4) % Baso % (Auto) 0 (0-1) % Sodium 139 L (140-148) mmol/L Potassium 3.4 L (3.6-5.2) mmol/L Chloride 99 L (100-108) mmol/L Carbon Dioxide 29 (21-32) mmol/L Anion Gap 14.4 H (5.0-14.0) mmol/L BUN 21 H (7-18) mg/dL Creatinine 1.2 H (0.6-1.0) mg/dL Est Cr Clr Drug Dosing 39.25 mL/min Estimated GFR (MDRD) 44 L (>60) Glucose 146 H (74-106) mg/dL Calcium 9.1 (8.5-10.1) mg/dL Total Bilirubin 0.4 (0.2-1.0) mg/dL AST 54 H (15-37) U/L ALT 52 (12-78) U/L Alkaline Phosphatase 149 H (46-116) U/L Total Protein 6.8 (6.4-8.2) g/dL Albumin 3.0 L (3.4-5.0) g/dL Globulin 3.8 H (2.3-3.5) g/dL Albumin/Globulin Ratio 0.8 L (1.2-2.2) Urine Color Yellow Urine Appearance Slightly cloudy Urine pH 7.0 (4.5-8.0) Ur Specific [place] 1.005 L (1.008-1.030) Urine Protein Negative (NEGATIVE) mg/dL Urine Glucose (UA) Normal (NEGATIVE) mg/dL Urine Ketones Negative (NEGATIVE) mg/dL Urine Occult Blood Negative (NEGATIVE) Urine Nitrite Negative (NEGATIVE) Urine Bilirubin Negative (NEGATIVE) Urine Urobilinogen Normal (NORMAL) mg/dL Ur Leukocyte Esterase Negative (NEGATIVE) Urine RBC 0-5 (0-5) Urine WBC 0-5 (0-5) Ur Epithelial Cells Rare Amorphous Sediment Not seen Urine Bacteria Not seen Urine Mucus Not seen Meds: Medications Discontinued Medications Generic Name Dose Route Start Last Admin Trade Name Ani PRN Reason Stop Dose Admin Acetaminophen 650 mg 01/25/19 21:24 01/25/19 21:35 Tylenol PO 01/25/19 21:25 650 mg NOW ONE Administration Acetaminophen 650 mg 01/26/19 03:11 Tylenol PO 01/26/19 03:12 NOW ONE Factor IX (Pha) 5,000 unit 01/26/19 03:31 [facility] IVPUSH 01/26/19 03:32 .BOLUS ONE Departure - Departure Time of Disposition: 03:53 Disposition: DC/Tfer to Acute Hospital 02 Condition: Fair Clinical Impression: Hemorrhagic cerebrovascular accident (CVA) - Discharge Information Referrals: Dutch Salazar Sr, MD [Primary Care Provider] - Forms: ED Department Discharge - My Orders Last 24 Hours: My Active Orders 01/25/19 21:24 Head wo Cont [CT] Stat - Assessment/Plan Last 24 Hours: My Active Orders 01/25/19 21:24 Head wo Cont [CT] Stat Plan: Assessment Intraparenchymal hemorrhage complicating the patient with known history of recent CVA left parietal lobe WBC elevated 12.1 consistent leukocytosis potassium low at 3.4 consistent hypokalemia creatinine elevated 1.2 consistent chronic renal failure state G IIIB CT scan describes the hemorrhage to CT have been obtained 4 hours apart which show a stable lesion Plan Called and discussed the case with Dr. Rasheed neurosurgery kindly accepted the patient at 3:30 she will be transferred to [facility] via EMS ground last dose of Xarelto was given at 4 PM on 01/25/19 residential caregiver [address] [facility]
--- NOTE | 2019-01-26 03:05 | CRLCT ---
INDICATION: Recent infarction. Questionable intracranial hemorrhage on prior CT. TECHNIQUE: Head CT without contrast. COMPARISON: January 25, 2019. FINDINGS: No significant interval change in subtle hyperdensity in region of left parietal infarction. No midline shift. Stable ventricular size. Periventricular white matter changes likely due to small vessel disease. No extra-axial fluid collection. Osseous structures intact. Visualized paranasal sinuses and mastoid air cells are normally aerated. IMPRESSION: Persistent focus of hyperdensity in region of recent left parietal lobe infarction concerning for hemorrhage. Recommend neurology consultation. Findings were discussed with Officer at 3:01 a.m. on January 26, 2019. Please note that all CT scans at this facility use dose modulation, iterative reconstruction, and/or weight-based dosing when appropriate to reduce radiation dose to as low as reasonably achievable. Dictated by Earline Grace MD @ Jan 26 2019 2:58AM Signed by Dr. Earline Grace @ Jan 26 2019 3:03AM
[2019-01-26] MEDS ORDERED: Acetaminophen 325 MG Tab PO ONE (03:11)
[2019-01-26] MEDS ORDERED: Factor IX Complex Human 500 UNIT VIAL IVPUSH ONE ×2 (03:31→04:01)
[2019-01-26] MEDS ORDERED: fentaNYL 100 MCG/2 ML SDV IVPUSH ONE (03:55)
[2019-01-26] MEDS ORDERED: Sodium Chloride 0.9% 1,000 ML IV SCH (04:00)
[2019-01-26] MEDS ORDERED: fentaNYL 100 MCG/2 ML SDV ONE (04:08)
[2019-01-26 05:15] VITALS: BP 138/72
--- NOTE | 2019-01-26 15:16 | CRLCT ---
Final Report: INDICATION: Occipital headache TECHNIQUE: Head CT without contrast. COMPARISON: January 06, 2019 FINDINGS: There is hypodensity in the left parietal region consistent with subacute infarction. Within the center of the hypodensity, there is a subtle focus of linear hyperdensity, best seen on image 30 series 2. There is no midline shift. Normal ventricular size. Periventricular white matter changes likely due to small vessel disease. No extra-axial fluid collection. There are intracranial vascular calcifications. IMPRESSION: New focus of subtle linear hyperdensity in an area of subacute left frontoparietal infarction. Findings are concerning for hemorrhage within the infarction. Recommend [address] Findings discussed with Officer at 10:45 p.m. on January 25, 2019. Please note that all CT scans at this facility use dose modulation, iterative reconstruction, and/or weight-based dosing when appropriate to reduce radiation dose to as low as reasonably achievable. Dictated by Earline Grace MD @ Jan 25 2019 10:39PM (Electronic Signature) MTDD
== END 2019-01-26 05:00 ==
LOC: JP.ED 20:33
DX: I61.9 Nontraumatic intracerebral hemorrhage, unspecified (principal); I13.0 Hypertensive heart and chronic kidney disease with heart failure and stage 1 through stage 4 chronic kidney disease, or unspecified chronic kidney disease; E11.22 Type 2 diabetes mellitus with diabetic chronic kidney disease; N18.9 Chronic kidney disease, unspecified; I50.9 Heart failure, unspecified; E11.42 Type 2 diabetes mellitus with diabetic polyneuropathy; I25.10 Atherosclerotic heart disease of native coronary artery without angina pectoris; Z79.01 Long term (current) use of anticoagulants; Z79.82 Long term (current) use of aspirin; Z79.899 Other long term (current) drug therapy; Z79.84 Long term (current) use of oral hypoglycemic drugs; Z88.5 Allergy status to narcotic agent; Z88.8 Allergy status to other drugs, medicaments and biological substances; Z88.6 Allergy status to analgesic agent
CPT/HCPCS: 36415; 70450; 80053; 81001; 85025; 96374; 96375; 99285; A9270; C9132; J3010; J7030

== ENCOUNTER 2019-07-18 09:46 | Emergency (ER) | payer MEDICARE ==
[2019-07-18 10:02] VITALS: BP 157/83; PULSE 116
--- NOTE | 2019-07-18 10:36 | EDM.PDOC ---
ED HPI GENERAL MEDICAL PROBLEM - General Chief Complaint: Headache Stated Complaint: HEADACHE, NAUSEA Time Seen by Provider: 07/18/19 10:20 Source of Information: Reports: Patient, Family History Limitations: Reports: No Limitations - History of Present Illness INITIAL COMMENTS - FREE TEXT/NARRATIVE: 69-year-old female with a posterior headache and nausea for the past 2 days, history of stroke with similar symptoms. She does not have a long history of recurring headaches and she is very concerned. No peripheral neurologic deficits , visual complaints or speech changes. No significant fever or chills, cold symptoms, shortness of breath or cough. Onset: Unknown/Unsure (Woke up with pain two mornings ago.) Location: Reports: Head Quality: Reports: Dull, Pressure Associated Symptoms: Reports: Nausea/Vomiting Occipital Pain Score (Numeric/FACES): 6 - Related Data Allergies Allergy/AdvReac Type Severity Reaction Status Date / Time acetaminophen [From Vicodin] Allergy Cannot Verified 01/25/19 20:59 Remember hydrocodone [From Vicodin] Allergy Cannot Verified 01/25/19 20:59 Remember trazodone Allergy Cannot Verified 01/25/19 20:59 Remember verapamil Allergy Cannot Verified 01/25/19 20:59 Remember AMOS Inhibitors AdvReac Cough Verified 01/25/19 20:59 morphine AdvReac Itching Verified 01/25/19 20:59 Home Meds: Home Meds Cyclobenzaprine [Flexeril] 10 mg PO BEDTIME PRN 08/24/16 [History] Folic Acid 1 mg PO DAILY 08/24/16 [History] Furosemide [Lasix] 20 mg PO BID 08/24/16 [History] Hydroxyurea 1,000 mg PO DAILY 08/24/16 [History] Levothyroxine 125 mcg PO DAILY 08/24/16 [History] Metoprolol Tartrate 100 mg PO BID 08/24/16 [History] Omeprazole 20 mg PO DAILY 08/24/16 [History] amLODIPine [Norvasc] 5 mg PO BEDTIME 08/24/16 [History] Gabapentin [Neurontin] 600 mg PO BID 04/18/17 [History] Allopurinol [Zyloprim] 300 mg PO DAILY 07/29/18 [History] Aspirin [Halfprin] 81 mg PO BID 07/29/18 [History] Cholecalciferol (Vitamin D3) [Vitamin D3] 2,000 unit PO DAILY 07/29/18 [History] Melatonin 5 mg PO BEDTIME PRN 07/29/18 [History] Rivaroxaban [Xarelto] 20 mg PO DAILY 07/29/18 [History] atorvaSTATin Calcium [Atorvastatin Calcium] 40 mg PO BEDTIME 07/29/18 [History] Cyanocobalamin (Vitamin B-12) [Vitamin B-12] 100 mcg PO DAILY 01/25/19 [History] Magnesium Oxide [Magnesium] 500 mg PO BID 01/25/19 [History] Potassium Chloride 10 meq PO DAILY 01/25/19 [History] cloNIDine [Catapres] 0.2 mg PO BID 01/25/19 [History] glipiZIDE [Glucotrol] 2.5 mg PO DAILY 01/25/19 [History] traMADol [Ultram] 50 mg PO ASDIRECTED PRN 01/25/19 [History] Past Medical History HEENT History: Reports: Cataract, Hard of Hearing, Impaired Vision Other HEENT History: wears glasses; bilat hearing aides Cardiovascular History: Reports: Arrhythmia, Blood Clots/VTE/DVT, CAD, Heart Failure, High Cholesterol, Hypertension, PVD, SOB on Exertion, Stents, Other ( See Below) Other Cardiovascular History: arterial thrombosis Respiratory History: Reports: Pneumonia, Recurrent, Sleep Apnea, SOB, Other ( See Below) Other Respiratory History: uses oxygen at night Gastrointestinal History: Reports: Cholelithiasis, Chronic Constipation, Diverticulosis, Gastritis, GERD, GI Bleed, Hemorrhoids Genitourinary History: Reports: Acute Renal Failure, Chronic Renal Insuffiency, Urinary Incontinence, UTI, Recurrent Other Genitourinary History: stress incontinence 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: Musculoskeletal History: Reports: Back Pain, Chronic, Fracture, Fibromyalgia, Other (See Below) Other Musculoskeletal History: bilat knee pain; bilat shoulder pain, rotator cuff tear Neurological History: Reports: CVA, Neuropathy, 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 Endocrine/Metabolic History: Reports: Diabetes, Type II, Hypothyroidism, Obesity /BMI 30+ Hematologic History: Reports: Anticoagulation Therapy, Blood Transfusion(s), Other (See Below) Other Hematologic History: essential thrombocytosis Dermatologic History: Reports: Cellulitis - Infectious Disease History Infectious Disease History: Reports: Chicken Pox, Measles, Mumps - Past Surgical History HEENT Surgical History: Reports: Naso-Sinus Surgery, Tonsillectomy Cardiovascular Surgical History: Reports: Vascular Surgery Other Cardiovascular Surgeries/Procedures: thorasic aortic stent; fem-pop bypass GI Surgical History: Reports: Cholecystectomy, Colonoscopy, Hernia Repair/Other Musculoskeletal Surgical History: Reports: Carpal Tunnel Social & Family History - Family History Family Medical History: Noncontributory Cardiac: Reports: Heart Failure, [place] Oncologic: Reports: Breast - Tobacco Use Smoking Status *Q: Never Smoker - Caffeine Use Caffeine Use: Reports: Coffee Caffeine Use Comment: 1 cup of coffee daily - Recreational Drug Use Recreational Drug Use: No - Living Situation & Occupation Living situation: Reports: , Alone (lives alone, 2 years ago , had 3 Children.) ED ROS GENERAL - Review of Systems Review Of Systems: See Below Constitutional: Denies: Fever, Chills HEENT: Denies: Eye Pain, Vision Change Respiratory: Denies: Shortness of Breath Cardiovascular: Denies: Chest Pain GI/Abdominal: Reports: Nausea, Vomiting. Denies: Abdominal Pain Skin: Reports: No Symptoms Neurological: Reports: Headache. Denies: Dizziness - Physical Exam Exam: See Below Exam Limited By: No Limitations General Appearance: Alert, No Apparent Distress Eye Exam: Bilateral Eye: EOMI, PERRL Head Exam: Atraumatic, Other (No point tenderness or rash) Neck: Supple, Non-Tender Respiratory/Chest: No Respiratory Distress, Lungs Clear Cardiovascular: Regular Rate, Rhythm Neuro Exam (Abbreviated): Alert, Oriented, No Motor/Sensory Deficits Psychiatric: Normal Affect, Normal Mood Skin Exam: Warm, Dry Course - Vital Signs Last Recorded V/S: Last Vital Signs Temp 99.9 F 07/18/19 10:05 Pulse 116 H 07/18/19 10:05 Resp 24 H 07/18/19 10:05 BP 157/83 H 07/18/19 10:05 Pulse Ox 95 07/18/19 10:05 - Orders/Labs/Meds Meds: Medications Discontinued Medications Generic Name Dose Route Start Last Admin Trade Name Freq PRN Reason Stop Dose Admin Ketorolac Tromethamine 60 mg 07/18/19 11:09 07/18/19 11:13 Toradol IM 07/18/19 11:10 60 mg ONETIME ONE Administration Ondansetron HCl 4 mg 07/18/19 11:09 07/18/19 11:13 Zofran Odt PO 07/18/19 11:10 4 mg ONETIME ONE Administration - Re-Assessments/Exams Free Text/Narrative Re-Assessment/Exam: 07/18/19 11:00 CT of the head without contrast was obtained. 07/18/19 11:[address] was negative other than chronic changes. Patient was given 4 mg as a local Zofran. 60 mg of IM Toradol. I went in to reassess the patient and 20 minutes after the injection and she had left and apparently she was feeling fine. Departure - Departure Time of Disposition: 11:38 Disposition: Home, Self-Care 01 Clinical Impression: Headache - Discharge Information Referrals: Dutch Salazar Sr, MD [Primary Care Provider] - Forms: ED Department Discharge Care Plan Goals: Continue any current medications and recheck in 24-48 hours if not improving satisfactorily.
[2019-07-18] MEDS ORDERED: Ondansetron 4 MG Tab.DIS PO ONE (11:09)
[2019-07-18] MEDS ORDERED: Ketorolac 60 MG/2 ML SDV IM ONE (11:09)
--- NOTE | 2019-07-18 11:23 | CT ---
Head wo Cont CLINICAL HISTORY: Headache, nausea COMPARISON: February 14, 2019 TECHNIQUE: Transverse scans were obtained from the base of the skull through the vertex without IV contrast on a multislice, multidetector CT scanner. Auto dosage reduction and iterative reconstruction techniques employed. FINDINGS: There is a ovoid area of low-attenuation in the high left parietal lobe area the this was the site of abnormal density on a February 14, 2019 exam which likely represented a focus of hemorrhage. There is no mass effect, acute hemorrhage, or extraaxial collection. The basal cisterns and sulci over the convexities are dominant. The ventricles are prominent. IMPRESSION: Focus of encephalomalacia in the high left parietal lobe. This was the site of previous hemorrhage in January of 2019 No acute intracranial abnormality
== END 2019-07-18 11:39 | disposition home or self-care (01) ==
LOC: JP.ED 09:46
DX: R51 Headache (principal); I25.10 Atherosclerotic heart disease of native coronary artery without angina pectoris; I13.0 Hypertensive heart and chronic kidney disease with heart failure and stage 1 through stage 4 chronic kidney disease, or unspecified chronic kidney disease; E11.22 Type 2 diabetes mellitus with diabetic chronic kidney disease; N18.9 Chronic kidney disease, unspecified; I50.9 Heart failure, unspecified; E78.00 Pure hypercholesterolemia, unspecified; K21.9 Gastro-esophageal reflux disease without esophagitis; E11.42 Type 2 diabetes mellitus with diabetic polyneuropathy; E66.9 Obesity, unspecified; Z68.39 Body mass index [BMI] 39.0-39.9, adult; E03.9 Hypothyroidism, unspecified; Z88.6 Allergy status to analgesic agent; Z88.5 Allergy status to narcotic agent; Z88.8 Allergy status to other drugs, medicaments and biological substances; Z79.82 Long term (current) use of aspirin; Z79.899 Other long term (current) drug therapy; Z79.84 Long term (current) use of oral hypoglycemic drugs; Z95.5 Presence of coronary angioplasty implant and graft; Z86.73 Personal history of transient ischemic attack (TIA), and cerebral infarction without residual deficits; Z79.890 Hormone replacement therapy
CPT/HCPCS: 70450; 96372; 99283; 99284; A9270; J1885

== ENCOUNTER 2020-06-30 15:53 | Emergency (ER) | payer MEDICARE ==
[2020-06-30] MEDS ORDERED: fentaNYL 100 MCG/2 ML SDV IM ONE (17:01)
--- NOTE | 2020-06-30 17:03 | EDM.PDOC ---
ED HPI GENERAL MEDICAL PROBLEM - General Chief Complaint: Upper Extremity Injury/Pain Stated Complaint: pain in left shoulder and going down arm Time Seen by Provider: 06/30/20 16:51 Source of Information: Reports: Patient, Family, RN Notes Reviewed History Limitations: Reports: No Limitations - History of Present Illness INITIAL COMMENTS - FREE TEXT/NARRATIVE: 69-year-old female presents emergency department today with a 1 day history of pain numbness and tingling and edema in the left arm, she does have a cerebrovascular accident while on Xarelto. She states this started suddenly the arm is painful to move at the shoulder and she has numbness and tingling in the distal aspects of her fingertips she can move her elbow can move her wrist - Related Data Allergies Allergy/AdvReac Type Severity Reaction Status Date / Time acetaminophen [From Vicodin] Allergy Cannot Verified 06/30/20 16:25 Remember hydrocodone [From Vicodin] Allergy Cannot Verified 06/30/20 16:25 Remember trazodone Allergy Cannot Verified 06/30/20 16:25 Remember verapamil Allergy Cannot Verified 06/30/20 16:25 Remember AMOS Inhibitors AdvReac Cough Verified 06/30/20 16:25 morphine AdvReac Itching Verified 06/30/20 16:25 Home Meds: Home Meds Cyclobenzaprine [Flexeril] 10 mg PO BEDTIME PRN 08/24/16 [History] Folic Acid 1 mg PO DAILY 08/24/16 [History] Furosemide [Lasix] 20 mg PO DAILY 08/24/16 [History] Hydroxyurea 1,000 mg PO DAILY 08/24/16 [History] Levothyroxine 125 mcg PO DAILY 08/24/16 [History] Metoprolol Tartrate 25 mg PO BID 08/24/16 [History] Omeprazole 20 mg PO DAILY 08/24/16 [History] amLODIPine [Norvasc] 5 mg PO BEDTIME 08/24/16 [History] Gabapentin [Neurontin] 600 mg PO BID 04/18/17 [History] Aspirin [Halfprin] 81 mg PO BID 07/29/18 [History] Cholecalciferol (Vitamin D3) [Vitamin D3] 2,000 unit PO DAILY 07/29/18 [History] Melatonin 5 mg PO BEDTIME PRN 07/29/18 [History] Rivaroxaban [Xarelto] 20 mg PO DAILY 07/29/18 [History] allopurinoL [Zyloprim] 300 mg PO DAILY 07/29/18 [History] atorvaSTATin Calcium [Atorvastatin Calcium] 40 mg PO BEDTIME 07/29/18 [History] Cyanocobalamin (Vitamin B-12) [Vitamin B-12] 100 mcg PO DAILY 01/25/19 [History] Potassium Chloride 10 meq PO DAILY 01/25/19 [History] cloNIDine [Catapres] 0.2 mg PO BID 01/25/19 [History] traMADol [Ultram] 50 mg PO ASDIRECTED PRN 01/25/19 [History] Amiodarone [Cordarone] 200 mg PO DAILY 06/30/20 [History] metFORMIN [Glucophage] 500 mg PO BIDMEALS 06/30/20 [History] Past Medical History HEENT History: Reports: Cataract, Hard of Hearing, Impaired Vision Other HEENT History: wears glasses; bilat hearing aides Cardiovascular History: Reports: Arrhythmia, Blood Clots/VTE/DVT, CAD, Heart Failure, High Cholesterol, Hypertension, PVD, SOB on Exertion, Stents, Other (See Below) Other Cardiovascular History: arterial thrombosis Respiratory History: Reports: Pneumonia, Recurrent, Sleep Apnea, SOB, Other (See Below) Other Respiratory History: uses oxygen at night Gastrointestinal History: Reports: Cholelithiasis, Chronic Constipation, Diverticulosis, Gastritis, GERD, GI Bleed, Hemorrhoids Genitourinary History: Reports: Acute Renal Failure, Chronic Renal Insuffiency, Urinary Incontinence, UTI, Recurrent Other Genitourinary History: stress incontinence AUTOMOTIVE BUYER History: Reports: Musculoskeletal History: Reports: Back Pain, Chronic, Fracture, Fibromyalgia, Other (See Below) Other Musculoskeletal History: bilat knee pain; bilat shoulder pain, rotator cuff tear Neurological History: Reports: CVA, Neuropathy, 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 Endocrine/Metabolic History: Reports: Diabetes, Type II, Hypothyroidism, Obesity/BMI 30+ Hematologic History: Reports: Anticoagulation Therapy, Blood Transfusion(s), Other (See Below) Other Hematologic History: essential thrombocytosis Dermatologic History: Reports: Cellulitis - Infectious Disease History Infectious Disease History: Reports: Chicken Pox, Measles, Mumps - Past Surgical History HEENT Surgical History: Reports: Naso-Sinus Surgery, Tonsillectomy Cardiovascular Surgical History: Reports: Vascular Surgery Other Cardiovascular Surgeries/Procedures: thoracic aortic stent; fem-pop bypass Respiratory Surgical History: Reports: None GI Surgical History: Reports: Cholecystectomy, Colonoscopy, Hernia Repair/Other Musculoskeletal Surgical History: Reports: Carpal Tunnel Social & Family History - Family History Family Medical History: Noncontributory Cardiac: Reports: Heart Failure, [place] Oncologic: Reports: Breast - Tobacco Use Smoking Status *Q: Never Smoker - Caffeine Use Caffeine Use: Reports: Coffee Caffeine Use Comment: 1 cup of coffee daily - Recreational Drug Use Recreational Drug Use: No - Living Situation & Occupation Living situation: Reports: , Alone (lives alone, 2 years ago, had 3 Children.) Review of Systems - Review of Systems Review Of Systems: See Below Respiratory: Reports: No Symptoms Cardiovascular: Reports: No Symptoms Musculoskeletal: Reports: Arm Pain Skin: Reports: No Symptoms ED EXAM, GENERAL - Physical Exam Exam: See Below Free Text/Narrative:: Examination of the left arm I do not appreciate any erythema or edema over the shoulder she is tender to palpation over the humeral head, no tenderness at the elbow full range of motion no tenderness at the wrist and full major motion of the digits she does have some edema appreciated in the fingertips sensation is intact Exam Limited By: No Limitations General Appearance: Alert, WD/WN, No Apparent Distress Respiratory/Chest: No Respiratory Distress Course - Vital Signs Last Recorded V/S: Last Vital Signs Temp 97.6 F 06/30/20 16:42 Pulse 73 06/30/20 19:00 Resp 12 06/30/20 19:00 BP 151/87 H 06/30/20 19:00 Pulse Ox 98 06/30/20 19:00 - Orders/Labs/Meds Orders: Active Orders 24 hr Category Date Time Status Cardiac Monitoring [RC] .As Directed Care 06/30/20 18:54 Active Shoulder Comp Lt [CR] Stat Exams 06/30/20 17:01 Taken VL Duplex Upr Ext Veins Ltd Lt [US] Stat Exams 06/30/20 16:58 Taken Labs: Laboratory Tests 06/30/20 06/30/20 Range/Units 19:08 19:08 WBC 9.6 (4.5-11.0) K/uL RBC 3.69 (3.30-5.50) M/uL Hgb 14.4 (12.0-15.0) g/dL Hct 41.5 (36.0-48.0) % MCV 113 H (80-98) fL MCH 39 H (27-31) pg MCHC 35 (32-36) % Plt Count 500 H (150-400) K/uL Neut % (Auto) 86 H (36-66) % Lymph % (Auto) 8 L (24-44) % [place] % (Auto) 6 (2-6) % Eos % (Auto) 1 L (2-4) % Baso % (Auto) 0 (0-1) % Sodium 138 L (140-148) mmol/L Potassium 4.1 (3.6-5.2) mmol/L Chloride 100 (100-108) mmol/L Carbon Dioxide 28 (21-32) mmol/L Anion Gap 14.1 H (5.0-14.0) mmol/L BUN 25 H (7-18) mg/dL Creatinine 1.5 H (0.6-1.0) mg/dL Est Cr Clr Drug Dosing 28.46 mL/min Estimated GFR (MDRD) 34 L (>60) Glucose 189 H (74-106) mg/dL Calcium 8.6 (8.5-10.1) mg/dL Troponin I < 0.017 (0.000-0.056) ng/mL Meds: Medications Discontinued Medications Generic Name Dose Route Start Last Admin Trade Name Ani PRN Reason Stop Dose Admin Fentanyl 50 mcg 06/30/20 17:01 06/30/20 17:09 Sublimaze IM 06/30/20 17:02 50 mcg ONETIME ONE Administration Ketorolac Tromethamine 30 mg 06/30/20 18:48 06/30/20 19:45 Toradol IM 06/30/20 18:49 30 mg ONETIME ONE Administration Departure - Departure Time of Disposition: 19:48 Disposition: Home, Self-Care 01 Condition: Fair Clinical Impression: Left shoulder pain Qualifiers: Chronicity: acute Qualified Code(s): M25.512 - Pain in left shoulder - Discharge Information Instructions: Shoulder Pain Referrals: Dutch Salazar Sr, MD [Primary Care Provider] - Forms: ED Department Discharge, ED Return to Work/School Form Additional Instructions: Use hydrocodone as needed for pain control, please follow-up with your primary care in the next 3 to 5 days if not better Sepsis Event Note (ED) - Evaluation Sepsis Screening Result: No Definite Risk - Focused Exam Vital Signs: Vital Signs Temp Pulse Resp BP Pulse Ox 06/30/20 19:00 73 12 151/87 H 98 06/30/20 17:55 71 16 159/74 H 96 06/30/20 17:10 66 16 156/60 H 98 06/30/20 16:42 97.6 F 67 16 173/84 H 95 06/30/20 16:22 97.6 F 67 16 173/84 H 95 - My Orders Last 24 Hours: My Active Orders 06/30/20 16:58 VL Duplex Upr Ext Veins Ltd Lt [US] Stat 06/30/20 17:01 Shoulder Comp Lt [CR] Stat 06/30/20 18:54 Cardiac Monitoring [RC] .As Directed - Assessment/Plan Last 24 Hours: My Active Orders 06/30/20 16:58 VL Duplex Upr Ext Veins Ltd Lt [US] Stat 06/30/20 17:01 Shoulder Comp Lt [CR] Stat 06/30/20 18:54 Cardiac Monitoring [RC] .As Directed Plan: Assessment Acuity = acute Site and laterality = left arm pain Etiology = probable muscle skeletal Manifestations = none Location of injury = Home Lab values = CBC, CMP unremarkable except for elevated creatinine of 1.5 troponin was negative ultrasound shows no DVT plain films of the shoulder I do not appreciate any acute process official read radiologist pending Plan She had good relief with combination Toradol and fentanyl discharged home hydrocodone 5/325 1 tab p.o. 3 times daily PRN total #10 follow-up primary care 3 to 5 days if not better This note was dictated using [employer] voice recognition software please call with any questions on syntax or grammar.
[2020-06-30] MEDS ORDERED: Ketorolac 30 MG/ML SDV IM ONE (18:48)
[2020-06-30 19:35] VITALS: BP 151/87; PULSE 73
--- NOTE | 2020-06-30 20:17 | CRLUS ---
INDICATION: Left arm swelling. FINDINGS: Left internal jugular vein patent and compressible with normal color and spectral Doppler blood flow. Left subclavian vein shows no filling defect with normal color and spectral Doppler appearance. Left axillary vein shows no filling defect with normal color and spectral Doppler blood flow. Left basilic, brachial and cephalic veins patent and compressible. IMPRESSION: No left upper extremity DVT. Dictated by Durga Otto MD @ Jun 30 2020 8:16PM Signed by Dr. Durga Otto @ Jun 30 2020 8:16PM
--- NOTE | 2020-07-01 11:38 | CRLCR ---
Clinical INDICATION: Fell yesterday. Pain. FINDINGS: No bone or joint abnormality is identified. There is no fracture or dislocation. Impression : Negative study. Dictated by Ruben Fermin MD @ Jul 01 2020 11:34AM Signed by Dr. Ruben Fermin @ Jul 01 2020 11:37AM
== END 2020-06-30 20:00 | disposition home or self-care (01) ==
LOC: JP.ED 15:53
DX: M25.512 Pain in left shoulder (principal); I13.0 Hypertensive heart and chronic kidney disease with heart failure and stage 1 through stage 4 chronic kidney disease, or unspecified chronic kidney disease; E11.22 Type 2 diabetes mellitus with diabetic chronic kidney disease; N18.9 Chronic kidney disease, unspecified; I50.9 Heart failure, unspecified; E78.00 Pure hypercholesterolemia, unspecified; I25.10 Atherosclerotic heart disease of native coronary artery without angina pectoris; E11.42 Type 2 diabetes mellitus with diabetic polyneuropathy; E03.9 Hypothyroidism, unspecified; E66.9 Obesity, unspecified; Z68.41 Body mass index [BMI] 40.0-44.9, adult; Z79.01 Long term (current) use of anticoagulants; Z88.6 Allergy status to analgesic agent; Z88.5 Allergy status to narcotic agent; Z88.8 Allergy status to other drugs, medicaments and biological substances; Z79.82 Long term (current) use of aspirin; Z79.899 Other long term (current) drug therapy
CPT/HCPCS: 36415; 73030; 80048; 84484; 85025; 93971; 96372; 99284; J1885; J3010

== ENCOUNTER 2020-10-22 08:23 | Inpatient (IN) | payer MEDICARE ==
[~2020-10-22 08:23] MED LIST: Dexamethasone 4 MG/ML SDV ONE; Glycopyrrolate 0.2 MG/ML 5 ML MDV ONE; Neostigmine Methylsulfate 1 MG/ML 5 ML Syringe ONE; Ondansetron 4 MG/2 ML SDV ONE; Propofol 200 MG/20 ML SDV ONE; Rocuronium 50 MG/5 ML Vial ONE; Succinylcholine 200 MG/10 ML MDV ONE; fentaNYL 250 MCG/5 ML SDV ONE
[2020-10-22] MEDS ORDERED: Acetaminophen 500 MG Tab PO ONE (09:00)
[2020-10-22] MEDS ORDERED: Gabapentin 300 MG Cap PO ONE (09:00)
[2020-10-22] MEDS ORDERED: Lidocaine 1% with EPINEPHrine 1:100,000 50 ML MDV ONE (09:01)
[2020-10-22] MEDS ORDERED: Meropenem 500 MG SDV ONE (09:01)
[2020-10-22] MEDS ORDERED: Bupivacaine 0.5% 50 ML MDV ONE (09:01)
[2020-10-22] MEDS ORDERED: Dextrose 5%-Lactated Ringers 1,000 ML IV SCH (09:15)
[2020-10-22] MEDS ORDERED: ceFAZolin 2 GM in Premix Bag 1 BAG IV ONE (10:15)
[2020-10-22] MEDS ORDERED: Sugammadex Sodium 200 MG/2 ML VIAL ONE (11:36)
[2020-10-22] MEDS ORDERED: 50% Dextrose in Water 50 ML Syringe IVPUSH PRN (11:52)
[2020-10-22] MEDS ORDERED: Glucagon,Human Recombinant 1 MG Vial IM PRN (11:52)
[2020-10-22] MEDS: Lactated Ringers 1,000 ML IV SCH ×2 (11:56→21:21)
[2020-10-22] MEDS ORDERED: Insulin Lispro 100 Unit/ML 3 ML KwikPen SUBCUT ONE ×2 (12:00→21:04)
[2020-10-22] MEDS ORDERED: Glucose Gel 15 GM in 37.5 GM Tube PO PRN (12:47)
[2020-10-22] MEDS ORDERED: Cyclobenzaprine 10 MG Tab PO PRN (12:58)
[2020-10-22] MEDS ORDERED: HYDROmorphone 0.5 MG/0.5 ML Syringe IVPUSH PRN (13:00)
[2020-10-22] MEDS ORDERED: HYDROmorphone 1 MG/ML Syringe IV PRN (13:00)
[2020-10-22] MEDS ORDERED: Ondansetron 4 MG/2 ML SDV IVPUSH PRN (13:00)
[2020-10-22] MEDS: traMADol 50 MG Tab PO SCH ×2 (13:29→20:58)
[2020-10-22] MEDS ORDERED: Warfarin 5 MG Tab PO SCH (14:00)
[2020-10-22] MEDS: Acetaminophen 325 MG Tab PO SCH (15:21)
[2020-10-22] MEDS: ceFAZolin 1 GM in Premix Bag 1 BAG IV SCH (16:53)
[2020-10-22] MEDS: glipiZIDE 5 MG Tab.ER PO SCH ×2 (16:58→21:01)
[2020-10-22] MEDS: HYDROmorphone 2 MG Tab PO PRN (19:42)
[2020-10-22] MEDS: Rivaroxaban 10 MG Tab PO SCH (20:57)
[2020-10-22] MEDS: cloNIDine 0.1 MG Tab PO SCH (20:59)
[2020-10-22] MEDS: atorvaSTATin 20 MG Tab PO SCH (21:01)
[2020-10-22] MEDS: amLODIPine 5 MG Tab PO SCH (21:02)
[2020-10-22] MEDS: Aspirin 81 MG Tab.EC PO SCH (21:02)
[2020-10-22] MEDS: Metoprolol Tartrate 50 MG Tab PO SCH (21:03)
[2020-10-22] MEDS ORDERED: Insulin Glargine,Human Rec. Analog 100 Units/ML 3 ML Pen SUBCUT ONE (21:45)
[2020-10-22] MEDS: Gabapentin 300 MG Cap PO SCH (22:09)
[2020-10-23] MEDS: HYDROmorphone 2 MG Tab PO PRN (00:24)
[2020-10-23] MEDS: Acetaminophen 325 MG Tab PO SCH ×5 (00:25→21:30)
[2020-10-23] MEDS: ceFAZolin 1 GM in Premix Bag 1 BAG IV SCH ×2 (00:32→08:15)
[2020-10-23] MEDS: traMADol 50 MG Tab PO SCH ×5 (02:25→21:31)
[2020-10-23] MEDS: Pantoprazole 40 MG Tab.CR PO SCH (07:30)
[2020-10-23] MEDS: Insulin Lispro 100 Unit/ML 3 ML KwikPen SUBCUT PRN ×4 (07:31→21:33)
[2020-10-23] MEDS: Potassium Chloride 20 MEQ Tab.ER PO SCH (07:31)
--- NOTE | 2020-10-23 07:54 | PN ---
DATE OF SERVICE: 10/23/2020 SUBJECTIVE: Bipin is postoperative day #1. Her pain has been controlled. Last evening, her blood sugar was greater than 500. She was given additional insulin coverage plus Lantus per her primary care provider, Dutch Salazar MD. This morning, her vital signs are stable. She is alert, orientated. Blood sugar has not yet been checked and she has no other concerns or questions. OBJECTIVE: GENERAL: Bipin Hernandez is a pleasant 70-year-old female. VITAL SIGNS: TPR is 96.8, 72, 20, blood pressure 135/98. HEENT: Negative. NECK: Supple. HEART: Regular rate and rhythm. LUNGS: Clear. ABDOMEN: Aquacel dressing, there is shadowing. Abdominal binder is on. EXTREMITIES: Without peripheral edema. ASSESSMENT: 1. Exploratory laparotomy with repair of incarcerated recurrent incisional hernia. 2. Excision of lipoma. 3. Excision of peritoneal nodule. POSTOPERATIVE DIAGNOSES: 1. Incarcerated recurrent incisional hernia. 2. Lipoma 7 mm abdominal wall. 3. Peritoneal nodule underlying abdominal wall, approximately 8 mm. Date of procedure: 10/22/2020. Surgeon: Zaki Del Toro MD. PLAN: 1. Decrease IV to 100 mL per hour. 2. Consult with health educator to make recommendations on medications if needed and to call Dutch Salazar MD, with recommendations. 3. Replace Aquacel dressing. 4. Colace 100 mg b.i.d. 5. Dulcolax tablets 10 mg t.i.d. 6. May shower. 7. We will evaluate p.r.n. or in a.m. Caridad Pierson PA-C /[id number]
[2020-10-23] MEDS: Lactated Ringers 1,000 ML IV SCH (08:15)
[2020-10-23] MEDS: Furosemide 20 MG Tab PO SCH (08:15)
[2020-10-23] MEDS: glipiZIDE 5 MG Tab.ER PO SCH ×3 (08:16→17:07)
[2020-10-23] MEDS: cloNIDine 0.1 MG Tab PO SCH ×2 (08:16→21:31)
[2020-10-23] MEDS: Gabapentin 300 MG Cap PO SCH ×2 (08:16→21:30)
[2020-10-23] MEDS: Colchicine 0.6 MG Tab PO SCH (08:17)
[2020-10-23] MEDS: Docusate Sodium 100 MG Cap PO SCH ×2 (08:17→21:31)
[2020-10-23] MEDS: Allopurinol 100 MG Tab PO SCH (08:17)
[2020-10-23] MEDS: Bisacodyl 5 MG Tab PO SCH ×2 (08:17→21:30)
[2020-10-23] MEDS: Metoprolol Tartrate 50 MG Tab PO SCH ×2 (08:17→21:31)
[2020-10-23] MEDS: Aspirin 81 MG Tab.EC PO SCH ×2 (08:17→21:31)
[2020-10-23] MEDS: Hydroxyurea 500 MG Cap PO SCH ×2 (08:28→10:13)
[2020-10-23] MEDS ORDERED: Hydroxyurea 500 MG Cap PO SCH (09:00)
[2020-10-23] MEDS ORDERED: Gabapentin 300 MG Cap PO SCH (09:00)
[2020-10-23] MEDS ORDERED: Insulin Glargine,Human Rec. Analog 100 Units/ML 3 ML Pen SUBCUT ONE (16:46)
[2020-10-23] MEDS: Rivaroxaban 10 MG Tab PO SCH (17:08)
[2020-10-23] MEDS ORDERED: Insulin Glargine,Human Rec. Analog 100 Units/ML 3 ML Pen SUBCUT SCH (20:00)
[2020-10-23] MEDS: amLODIPine 5 MG Tab PO SCH (21:31)
[2020-10-23] MEDS: atorvaSTATin 20 MG Tab PO SCH (21:31)
[2020-10-24] MEDS: traMADol 50 MG Tab PO SCH ×2 (02:32→08:46)
[2020-10-24] MEDS: Acetaminophen 325 MG Tab PO SCH ×2 (04:16→09:42)
[2020-10-24] MEDS: Pantoprazole 40 MG Tab.CR PO SCH (07:23)
[2020-10-24] MEDS: Metoprolol Tartrate 50 MG Tab PO SCH (08:38)
[2020-10-24] MEDS: Bisacodyl 5 MG Tab PO SCH (08:39)
[2020-10-24] MEDS: Potassium Chloride 20 MEQ Tab.ER PO SCH (08:39)
[2020-10-24] MEDS: Gabapentin 300 MG Cap PO SCH (08:39)
[2020-10-24] MEDS: glipiZIDE 5 MG Tab.ER PO SCH (08:39)
[2020-10-24] MEDS: Colchicine 0.6 MG Tab PO SCH (08:39)
[2020-10-24] MEDS: Furosemide 20 MG Tab PO SCH (08:39)
[2020-10-24] MEDS: Aspirin 81 MG Tab.EC PO SCH (08:40)
[2020-10-24] MEDS: Allopurinol 100 MG Tab PO SCH (08:40)
[2020-10-24] MEDS: cloNIDine 0.1 MG Tab PO SCH (08:40)
[2020-10-24] MEDS: Docusate Sodium 100 MG Cap PO SCH (08:40)
[2020-10-24] MEDS: Insulin Lispro 100 Unit/ML 3 ML KwikPen SUBCUT PRN ×2 (08:44→11:57)
[2020-10-24] MEDS ORDERED: Hydroxyurea 500 MG Cap PO SCH (09:00)
[2020-10-24 10:40] VITALS: BP 90/55; PULSE 56
[2020-10-24] MEDS ORDERED: Magnesium Hydroxide 400 MG/5 ML Susp 30 ML Cup PO PRN (11:40)
--- NOTE | 2020-10-24 12:09 | DISCH ---
ADMISSION DIAGNOSES: Incarcerated recurrent incisional hernia, diabetes type 2, sleep apnea, peripheral polyneuropathy, gastroesophageal reflux disease, chronic kidney disease, hypothyroidism, hyperlipidemia, essential thrombocytosis, history of deep vein thrombosis. DISCHARGE DIAGNOSES: 1. Exploratory laparotomy with repair of incarcerated recurrent incisional hernia. 2. Excision of lipoma. 3. Excision of peritoneal nodule. POSTOPERATIVE DIAGNOSES: 1. Incarcerated recurrent incisional hernia. 2. Lipoma, 7 mm, abdominal wall. 3. Peritoneal nodule underlying abdominal wall, approximately 8 mm. 4. Date of procedure: 10/22/2020. Surgeon: Zaki Del Toro MD. HISTORY: Bipin is a pleasant 70-year-old female with an incarcerated recurrent incisional hernia. After preoperative evaluation and discussion of possible risks and possible complications, she wished to proceed with surgical procedure. HOSPITAL COURSE: Bipin had no operative complications. On postoperative day #1, blood sugars were elevated with the highest being 500. She did have a sliding scale Humalog coverage, and on postoperative day #1, saw life skills educator and medications were added. She was started on Lantus 15 units every bedtime and Januvia 50 mg daily along with her glipizide, which she takes 10 mg twice a day with meals. She was instructed to check her blood sugars 4 times a day when she gets home. Pain was controlled. Vital signs were stable. She was up independently with use of a walker which she has at home and she is able to be discharged to home without any complications. PHYSICAL EXAMINATION: GENERAL: Bipin Hernandez is a 70-year-old female. VITAL SIGNS: Height is 5 feet 5 inches, weight is 228 pounds, BMI is 38. TPR 97.2, 55, 16, blood pressure 122/61. HEENT: Negative. NECK: Supple. HEART: Regular rate and rhythm. LUNGS: Clear. ABDOMEN: Aquacel dressings on. Abdominal binder is on. EXTREMITIES: Without peripheral edema. DISPOSITION: Discharged to home. CONDITION: Stable and improving. FOLLOWUP: Appointment with Zaki Del Toro MD, at [facility] on 10/31/2020 at 10 a.m. She is to see Isabel Joshi for diabetic education at 10:15. HOME MEDICATIONS: 1. Colace 100 mg b.i.d., #60. 2. Dulcolax 10 mg oral twice daily p.r.n. constipation, #30. 3. Lantus 15 units subcu every 24 hours, 3 pens were given with 4 refills. 4. Tylenol 650 mg oral q.6 hours p.r.n. pain. 5. She is to also start Januvia 50 mg once daily, will stop by Dr. Dutch Salazar's office and he will give her samples. 6. Resume aspirin 81 mg p.o. daily. 7. Vitamin D3 2000 International Units daily. 8. Colchicine 0.6 mg oral p.r.n. gout pain. 9. Flexeril 10 mg at bedtime p.r.n. muscle spasms. 10.Folic acid 1 mg oral daily. 11.Lasix 20 mg oral daily. 12.Neurontin 600 mg oral twice daily. 13.Neurontin 600 mg at bedtime. 14.Hydroxyurea 1000 mg oral every Thursday, Thursday, , and Thursday, and 1500 mg on Thursday, Thursday, and Thursday. 15.Levothyroxine 137 mcg oral daily. 16.Metoprolol tartrate 50 mg oral twice daily. 17.Multivitamin 1 tablet daily. 18.Omeprazole 20 mg oral daily. 19.Potassium chloride 20 mEq oral daily. 20.Xarelto 20 mg oral daily. 21.Zyloprim 300 mg oral daily. 22.Norvasc 5 mg oral at bedtime. 23.Atorvastatin 40 mg at bedtime. 24.Catapres 0.2 mg oral twice daily. 25.Glucotrol 10 mg oral, it is prescribed twice a day, but she takes it 3 times daily. 26.Tramadol 50 mg q.6 hours. DIET: Diabetic diet as prior to admission. Drink 8 to 10 glasses of water a day. ACTIVITY: Walk 6 times daily inside your home. Driving: Do not drive for 1 week. Shower/bathing: May shower. DISCHARGE INSTRUCTIONS: Notify provider if any fever, increased pain, swelling, redness, drainage, nausea, or vomiting. Wound incision care: Keep site clean and dry. Take off Aquacel on 10/26/2020. Wear abdominal binder for 6 weeks. SPECIAL INSTRUCTION: Use incentive spirometer 10 times every hour while awake. Check blood sugars 4 times a day and bring record of results to clinic appointment. Take up Januvia [address] Dutch Salazar's office today. /[id number]
--- NOTE | 2020-11-05 08:40 | OR ---
DATE OF PROCEDURE: 10/22/2020 SURGEON: Zaki Del Toro MD PREOPERATIVE DIAGNOSIS: Recurrent incisional hernia. POSTOPERATIVE DIAGNOSES: 1. Incarcerated recurrent incisional hernia. 2. Subfascial lipoma of the abdominal wall. 3. Peritoneal nodule underlying the abdominal wall. OPERATIVE PROCEDURES: Exploratory laparotomy with: 1. Repair of incarcerated recurrent incisional hernia with mesh (55965, 48648). 2. Excision of subfascial lipoma of abdominal wall (78954). 3. Excision of peritoneal nodule underlying the anterior abdominal wall (26375). ANESTHESIA: General. NEUROCRITICAL CARE PHYSICIAN: Caridad Pierson PA-C INDICATIONS FOR PROCEDURE: This 70-year-old female presenting with a recurrent incisional hernia. This appeared to be above the previously placed mesh with the previous hernia repair being in 2000 and ultimately repaired this with a mesh. Potential risks including bleeding, infection, injury to underlying viscera, problems with mesh becoming infected or hernia recurring were reviewed, and the patient wishes to proceed. DETAILS OF THE PROCEDURE: The patient was taken to the operating room and placed in the supine position. After general endotracheal anesthesia was induced, a Conti catheter was inserted, and the abdomen prepped and draped. A midline incision extending upward from the umbilicus was made and carried down through the skin and subcutaneous tissue, carried down to the level of the area of the hernia. In the plane behind the Abhinav fascia, a 7 mm lipoma was identified and this was excised and sent as a separate specimen. The hernia sac was then identified and contained some of the omentum and preperitoneal fat. This was dissected down to the level of the fascia circumferentially. The contents were then transected and the stay suture ligated with a 3-0 Vicryl stitch. The fascial defect in this case was around 1 to 1.5 cm. As one mobilized up the surrounding omentum away from the abdominal wall, an 8 mm nodular lesion was noted on the peritoneal side of the abdominal wall. This measured about 8 mm and was sent as a separate specimen as well. An extra-large mesh plug was then selected for repair of the hernia. This was placed in intraperitoneal location at an circumference was sutured on the underside of the fascia with horizontal mattress sutures of 0 Vicryl stitch. irrigated with antibiotic-containing saline solution. The fascia itself was then closed transversely with a running #1 Vicryl stitch. Subcutaneous tissue with 2 layers of 3-0 and 4-0 Vicryl stitch and the skin with diego. The bilateral transversus abdominis plane blocks were placed in this case using ultrasound guidance and the incision was anesthetized with 1% lidocaine prior to closure as well. The patient was taken to the recovery room in satisfactory condition. Physician respiratory equipment assistant, Caridad Pierson, played an essential role in assisting in this case helping to position the patient, retract structures as needed, as well as suturing and cutting sutures when indicated. Her presence improved patient safety and decreased the operative time. Zaki Del Toro MD /[id number]
== END 2020-10-24 13:30 | disposition home or self-care (01) | DRG 354 ==
LOC: JP.SDSSCHI 08:23 → JP.SDS 08:23 → EDSTATUS 10:25 → JP.MS 11:55
PROVIDERS: ADMIT Surgery; ATTEND Surgery
PROC: 0WUF0JZ Supplement Abdominal Wall with Synthetic Substitute, Open Approach (ICD-10-PCS; principal; 2020-10-22)
PROC: 0JB80ZZ Excision of Abdomen Subcutaneous Tissue and Fascia, Open Approach (ICD-10-PCS; 2020-10-22)
PROC: 0DBW0ZZ Excision of Peritoneum, Open Approach (ICD-10-PCS; 2020-10-22)
DX: K43.0 Incisional hernia with obstruction, without gangrene (principal); K65.4 Sclerosing mesenteritis; D17.1 Benign lipomatous neoplasm of skin and subcutaneous tissue of trunk; K66.9 Disorder of peritoneum, unspecified; I49.5 Sick sinus syndrome; D45 Polycythemia vera; E78.2 Mixed hyperlipidemia; E03.9 Hypothyroidism, unspecified; I12.9 Hypertensive chronic kidney disease with stage 1 through stage 4 chronic kidney disease, or unspecified chronic kidney disease; N18.9 Chronic kidney disease, unspecified; E66.9 Obesity, unspecified; E11.22 Type 2 diabetes mellitus with diabetic chronic kidney disease; M79.18 Myalgia, other site; Z79.899 Other long term (current) drug therapy; Z68.38 Body mass index [BMI] 38.0-38.9, adult
CPT/HCPCS: 36415; 80048; 82962; 83735; 83880; 84100; 84443; 85610; 88302; 88304; 88305; 94762; A9270-GY; C1781; J0171; J0330; J0690; J1100; J1815; J1815-GY; J2020; J2185; J2405; J2704; J2710; J2795; J3010; J3490; J7120; J7121

== ENCOUNTER 2021-03-19 09:41 | Day surgery (SDC) | payer MEDICARE ==
[2021-03-19] MEDS ORDERED: Bupivacaine 0.5% 30 ML SDV ONE (10:16)
[2021-03-19] MEDS ORDERED: Lactated Ringers 1,000 ML IV SCH (11:00)
[2021-03-19] MEDS ORDERED: ceFAZolin 2 GM in Premix Bag 1 BAG IV ONE (11:20)
[2021-03-19] MEDS ORDERED: Propofol 200 MG/20 ML SDV ONE (11:57)
[2021-03-19] MEDS ORDERED: fentaNYL 100 MCG/2 ML SDV ONE (11:58)
[2021-03-19] MEDS ORDERED: Midazolam 1 MG/ML 2 ML SDV ONE (11:58)
[2021-03-19] MEDS ORDERED: Ondansetron 4 MG/2 ML SDV IVPUSH ONE (12:35)
[2021-03-19 13:27] VITALS: BP 132/82; PULSE 62
--- NOTE | 2021-03-19 18:35 | OR ---
DATE OF PROCEDURE: 03/19/2021 SURGEON: Howard Carbajal DPM SWING RIDE OPERATOR: None. PREOPERATIVE DIAGNOSIS: Osteomyelitis, distal right second toe. POSTOPERATIVE DIAGNOSIS: Osteomyelitis, distal right second toe. PROCEDURE: Amputation, right second toe. ANESTHESIA: Local with IV sedation. HEMOSTASIS: Was obtained with an ankle tourniquet on the right ankle 250 mmHg. ESTIMATED BLOOD LOSS: 5 mL. MATERIALS: None. INJECTABLES: A total 10 mL of Marcaine 0.5% plain were injected prior to prep at the base of the right second toe. PATHOLOGY: None. CONDITION: Stable. INDICATIONS FOR SURGERY: Osteomyelitis, distal right second toe. PROCEDURE IN DETAIL: Patient was brought into the operating room, placed on the operating table in supine position. Following IV sedation, anesthesia was obtained in the right second toe with a total of 10 mL of Marcaine 0.5% plain. The right foot was then scrubbed, prepped, and draped in the usual aseptic manner, raised to 60 degrees for hemostasis and tourniquet was inflated. Esmarch was not used. Foot was lowered to the table. Incision was made in a semi-elliptical type incision at the base of the right second toe. Incision was deepened straight down to bone and the right second toe was disarticulated at the metatarsophalangeal joint. We did this instead of doing a partial amputation due to the appearance of the soft tissue on the plantar side of the right second toe and did not think it was good enough to close with. Right second toe was then removed, and the incision was examined. At the amputation site, the tissue was healthy and there was healthy bleeding tissue with no purulence, no malodor, no signs of infection, and the second metatarsal head was healthy and strong bone. The incision was then flushed out with copious amounts of sterile saline and then the skin closure was obtained with 3-0 nylon in a simple interrupted configuration, dressed with Xeroform, 4x4s, Kerlix, and Coban. The patient was returned to recovery room with vital signs stable and vascular status intact to both feet. Patient was given instructions to rest and elevate the right foot, ambulate, and partial weightbearing on the heel only and to return to clinic for followup with Dr. Carbajal in one week, at which time she will be re-evaluated. Patient was placed on doxycycline 1 tablet p.o. q.12h x14 days, dispensed #28. I would like to add that intraoperatively after amputating the right second toe, we placed it on the back table and cut the distal end of the toe open and took deep cultures of it, aerobic and anaerobic. Howard Carbajal DPM /[id number]
== END 2021-03-19 14:28 | disposition home or self-care (01) ==
LOC: JP.SDS 09:41
PROVIDERS: ATTEND Podiatrist Foot & Ankle Surgery
DX: M86.8X7 Other osteomyelitis, ankle and foot (principal); L97.516 Non-pressure chronic ulcer of other part of right foot with bone involvement without evidence of necrosis; K21.9 Gastro-esophageal reflux disease without esophagitis; I12.9 Hypertensive chronic kidney disease with stage 1 through stage 4 chronic kidney disease, or unspecified chronic kidney disease; N18.4 Chronic kidney disease, stage 4 (severe); E66.01 Morbid (severe) obesity due to excess calories; E03.9 Hypothyroidism, unspecified; E78.5 Hyperlipidemia, unspecified; G62.9 Polyneuropathy, unspecified; Z79.899 Other long term (current) drug therapy; G47.33 Obstructive sleep apnea (adult) (pediatric); E11.22 Type 2 diabetes mellitus with diabetic chronic kidney disease; Z79.82 Long term (current) use of aspirin; Z79.890 Hormone replacement therapy; Z88.5 Allergy status to narcotic agent; Z88.8 Allergy status to other drugs, medicaments and biological substances; Z79.4 Long term (current) use of insulin; Z68.41 Body mass index [BMI] 40.0-44.9, adult
CPT/HCPCS: 28820; 87070; 87075; 87205; J0690; J2250; J2405; J2704; J3010; J3490; J7120; 88304; 88311

== ENCOUNTER 2021-12-15 12:52 | Inpatient (IN) | payer MEDICARE ==
[2021-12-15] MEDS ORDERED: Ondansetron 4 MG/2 ML SDV IVPUSH ONE (15:20)
[2021-12-15] MEDS ORDERED: Lactated Ringers 1,000 ML IV SCH (15:30)
[2021-12-15 16:29] LABS: CORONAVIRUS COVID-19 NAA NEGATIVE (NEGATIVE)
[2021-12-15] MEDS ORDERED: Ondansetron 4 MG/2 ML SDV IV PRN (16:37)
[2021-12-15] MEDS ORDERED: Colchicine 0.6 MG Tab PO PRN (16:50)
[2021-12-15] MEDS ORDERED: Cyclobenzaprine 10 MG Tab PO PRN (16:50)
[2021-12-15] MEDS ORDERED: Glucagon,Human Recombinant 1 MG Vial IM PRN (16:50)
[2021-12-15] MEDS ORDERED: 50% Dextrose in Water 50 ML Syringe IVPUSH PRN (16:50)
[2021-12-15] MEDS ORDERED: traMADol 50 MG Tab PO PRN ×2 (16:50→19:35)
[2021-12-15] MEDS ORDERED: Insulin Glargine,Human Rec. Analog 100 Units/ML 3 ML Pen SUBCUT SCH ×2 (17:00→21:00)
[2021-12-15] MEDS: Sodium Chloride 0.9% 1,000 ML IV SCH (17:31)
[2021-12-15] MEDS: cefTRIAXone 1 GM in Sodium Chloride 0.9% 50 ML IV SCH (17:54)
[2021-12-15] MEDS ORDERED: cefTRIAXone 1 GM in Sodium Chloride 0.9% 50 ML IV SCH (18:00)
[2021-12-15] MEDS: cloNIDine 0.1 MG Tab PO SCH (20:22)
[2021-12-15] MEDS: Metoprolol Tartrate 25 MG Tab PO SCH (20:22)
[2021-12-15] MEDS: Gabapentin 300 MG Cap PO SCH (20:22)
[2021-12-15] MEDS: amLODIPine 5 MG Tab PO SCH (20:22)
[2021-12-15] MEDS: Docusate Sodium 100 MG Cap PO SCH (20:22)
[2021-12-15] MEDS: Magnesium Oxide 400 MG Tab PO SCH (20:22)
[2021-12-15] MEDS: Aspirin 81 MG Tab.EC PO SCH (20:23)
[2021-12-15] MEDS ORDERED: Doxepin 25 MG Cap ONE (21:03)
[2021-12-16] MEDS: Levothyroxine 112 MCG Tab PO SCH (08:12)
[2021-12-16] MEDS: Levothyroxine 25 MCG Tab PO SCH (08:12)
[2021-12-16] MEDS: Metoprolol Tartrate 25 MG Tab PO SCH (08:12)
[2021-12-16] MEDS: cloNIDine 0.1 MG Tab PO SCH ×2 (08:13→20:26)
[2021-12-16] MEDS: Gabapentin 300 MG Cap PO SCH ×2 (08:13→20:28)
[2021-12-16] MEDS: Furosemide 20 MG Tab PO SCH (08:13)
[2021-12-16] MEDS: Aspirin 81 MG Tab.EC PO SCH ×2 (08:14→20:26)
[2021-12-16] MEDS: Pantoprazole 40 MG Tab.CR PO SCH (08:14)
[2021-12-16] MEDS: Docusate Sodium 100 MG Cap PO SCH ×2 (08:19→20:27)
[2021-12-16] MEDS: Cholecalciferol (Vitamin D3) 25 MCG Tab PO SCH (08:19)
[2021-12-16] MEDS: Folic Acid 1 MG Tab PO SCH (08:19)
[2021-12-16] MEDS: glipiZIDE 5 MG Tab.ER PO SCH (08:19)
[2021-12-16] MEDS: Multivitamins with Iron/Calcium/Folic Acid/Minerals Tab PO SCH (08:19)
[2021-12-16] MEDS ORDERED: Glucagon,Human Recombinant 1 MG Vial IM PRN (08:49)
[2021-12-16] MEDS ORDERED: 50% Dextrose in Water 50 ML Syringe IVPUSH PRN (08:49)
[2021-12-16] MEDS ORDERED: Rivaroxaban 10 MG Tab PO SCH (09:00)
[2021-12-16] MEDS: Hydroxyurea 500 MG Cap PO SCH (09:45)
[2021-12-16] MEDS: Rivaroxaban 10 MG Tab PO SCH (09:45)
[2021-12-16] MEDS: Allopurinol 100 MG Tab PO SCH (09:45)
[2021-12-16] MEDS: Magnesium Oxide 400 MG Tab PO SCH ×2 (09:46→20:26)
[2021-12-16] MEDS: Potassium Chloride 10 MEQ Cap.ER PO SCH ×2 (09:46→10:11)
[2021-12-16] MEDS: Sodium Chloride 0.9% 1,000 ML IV SCH ×2 (10:10→17:16)
[2021-12-16] MEDS: Insulin Lispro 100 Unit/ML 3 ML KwikPen SUBCUT SCH ×3 (12:22→21:16)
[2021-12-16] MEDS: cefTRIAXone 1 GM in Sodium Chloride 0.9% 50 ML IV SCH (17:17)
[2021-12-16] MEDS: Metoprolol Tartrate 50 MG Tab PO SCH (20:27)
[2021-12-16] MEDS: amLODIPine 5 MG Tab PO SCH (20:28)
[2021-12-17] MEDS: Sodium Chloride 0.9% 1,000 ML IV SCH ×2 (07:26→21:38)
[2021-12-17] MEDS: Insulin Lispro 100 Unit/ML 3 ML KwikPen SUBCUT SCH ×4 (07:27→21:26)
[2021-12-17] MEDS: Levothyroxine 25 MCG Tab PO SCH (07:35)
[2021-12-17] MEDS: Levothyroxine 112 MCG Tab PO SCH (07:36)
[2021-12-17] MEDS: Allopurinol 100 MG Tab PO SCH (08:38)
[2021-12-17] MEDS: Rivaroxaban 10 MG Tab PO SCH (08:38)
[2021-12-17] MEDS: Cholecalciferol (Vitamin D3) 25 MCG Tab PO SCH (08:38)
[2021-12-17] MEDS: Hydroxyurea 500 MG Cap PO SCH (08:39)
[2021-12-17] MEDS: cloNIDine 0.1 MG Tab PO SCH ×2 (08:39→21:30)
[2021-12-17] MEDS: Folic Acid 1 MG Tab PO SCH (08:39)
[2021-12-17] MEDS: Pantoprazole 40 MG Tab.CR PO SCH (08:40)
[2021-12-17] MEDS: Gabapentin 300 MG Cap PO SCH ×2 (08:40→21:28)
[2021-12-17] MEDS: Docusate Sodium 100 MG Cap PO SCH ×2 (08:40→21:35)
[2021-12-17] MEDS: Aspirin 81 MG Tab.EC PO SCH ×2 (08:40→21:28)
[2021-12-17] MEDS: Multivitamins with Iron/Calcium/Folic Acid/Minerals Tab PO SCH (08:40)
[2021-12-17] MEDS: Magnesium Oxide 400 MG Tab PO SCH ×2 (08:41→21:28)
[2021-12-17] MEDS: Metoprolol Tartrate 50 MG Tab PO SCH ×2 (08:41→21:32)
[2021-12-17] MEDS: Furosemide 20 MG Tab PO SCH (08:42)
[2021-12-17] MEDS: cefTRIAXone 1 GM in Sodium Chloride 0.9% 50 ML IV SCH (17:03)
[2021-12-17] MEDS: amLODIPine 5 MG Tab PO SCH (21:35)
[2021-12-17] MEDS: Acetaminophen 325 MG Tab PO PRN (23:34)
[2021-12-18] MEDS: Insulin Lispro 100 Unit/ML 3 ML KwikPen SUBCUT SCH ×4 (07:57→21:08)
[2021-12-18] MEDS: Levothyroxine 25 MCG Tab PO SCH (07:59)
[2021-12-18] MEDS: Levothyroxine 112 MCG Tab PO SCH (08:00)
[2021-12-18] MEDS: Allopurinol 100 MG Tab PO SCH (09:46)
[2021-12-18] MEDS: Cholecalciferol (Vitamin D3) 25 MCG Tab PO SCH (09:47)
[2021-12-18] MEDS: Hydroxyurea 500 MG Cap PO SCH (09:48)
[2021-12-18] MEDS: Metoprolol Tartrate 50 MG Tab PO SCH ×2 (09:49→21:05)
[2021-12-18] MEDS: Pantoprazole 40 MG Tab.CR PO SCH (09:49)
[2021-12-18] MEDS: Gabapentin 300 MG Cap PO SCH ×2 (09:49→21:05)
[2021-12-18] MEDS: Rivaroxaban 10 MG Tab PO SCH (09:51)
[2021-12-18] MEDS: Multivitamins with Iron/Calcium/Folic Acid/Minerals Tab PO SCH (09:53)
[2021-12-18] MEDS: Docusate Sodium 100 MG Cap PO SCH ×2 (09:53→21:05)
[2021-12-18] MEDS: Aspirin 81 MG Tab.EC PO SCH ×2 (09:53→21:04)
[2021-12-18] MEDS: cloNIDine 0.1 MG Tab PO SCH ×2 (09:54→21:07)
[2021-12-18] MEDS: Folic Acid 1 MG Tab PO SCH (09:54)
[2021-12-18] MEDS: Levofloxacin/Dextrose 5%-Water 750 MG in Premix Bag 1 BAG IV SCH (09:55)
[2021-12-18] MEDS: Furosemide 20 MG Tab PO SCH (09:55)
[2021-12-18] MEDS: Magnesium Oxide 400 MG Tab PO SCH ×2 (10:41→21:04)
[2021-12-18] MEDS: Sodium Chloride 0.9% 1,000 ML IV SCH (13:59)
[2021-12-18] MEDS ORDERED: Magnesium Hydroxide 400 MG/5 ML Susp 30 ML Cup PO PRN (20:00)
[2021-12-18] MEDS: amLODIPine 5 MG Tab PO SCH (21:07)
[2021-12-18] MEDS ORDERED: Oxybutynin 5 MG Tab PO SCH (22:30)
[2021-12-18] MEDS: Acetaminophen 325 MG Tab PO PRN (22:45)
[2021-12-18] MEDS: Insulin Glargine,Human Rec. Analog 100 Units/ML 3 ML Pen SUBCUT SCH (22:46)
[2021-12-19] MEDS: Sodium Chloride 0.9% 1,000 ML IV SCH ×2 (04:14→18:47)
[2021-12-19] MEDS: Insulin Lispro 100 Unit/ML 3 ML KwikPen SUBCUT SCH ×4 (08:20→21:27)
[2021-12-19] MEDS: Levothyroxine 25 MCG Tab PO SCH (09:41)
[2021-12-19] MEDS: Pantoprazole 40 MG Tab.CR PO SCH (09:42)
[2021-12-19] MEDS: Levothyroxine 112 MCG Tab PO SCH (09:42)
[2021-12-19] MEDS: Folic Acid 1 MG Tab PO SCH (09:52)
[2021-12-19] MEDS: Docusate Sodium 100 MG Cap PO SCH ×2 (09:52→21:28)
[2021-12-19] MEDS: Aspirin 81 MG Tab.EC PO SCH ×2 (09:52→21:28)
[2021-12-19] MEDS: cloNIDine 0.1 MG Tab PO SCH ×2 (09:52→21:28)
[2021-12-19] MEDS: Furosemide 20 MG Tab PO SCH (09:53)
[2021-12-19] MEDS: Hydroxyurea 500 MG Cap PO SCH (09:53)
[2021-12-19] MEDS: Metoprolol Tartrate 50 MG Tab PO SCH ×2 (09:53→21:29)
[2021-12-19] MEDS: Gabapentin 300 MG Cap PO SCH ×2 (09:54→21:30)
[2021-12-19] MEDS: Multivitamins with Iron/Calcium/Folic Acid/Minerals Tab PO SCH (09:54)
[2021-12-19] MEDS: Rivaroxaban 10 MG Tab PO SCH (09:55)
[2021-12-19] MEDS: Cholecalciferol (Vitamin D3) 25 MCG Tab PO SCH (09:55)
[2021-12-19] MEDS: Allopurinol 100 MG Tab PO SCH (09:56)
[2021-12-19] MEDS: Magnesium Oxide 400 MG Tab PO SCH ×2 (10:05→21:30)
[2021-12-19] MEDS ORDERED: Oxybutynin 5 MG Tab PO SCH ×2 (11:27→21:00)
[2021-12-19] MEDS: Oxybutynin 5 MG Tab PO SCH ×2 (12:27→21:31)
[2021-12-19] MEDS: Insulin Glargine,Human Rec. Analog 100 Units/ML 3 ML Pen SUBCUT SCH (21:29)
[2021-12-19] MEDS: amLODIPine 5 MG Tab PO SCH (21:30)
[2021-12-20 07:59] VITALS: BP 144/66
[2021-12-20] MEDS: Levothyroxine 112 MCG Tab PO SCH (08:27)
[2021-12-20] MEDS: Levothyroxine 25 MCG Tab PO SCH (08:28)
[2021-12-20] MEDS: Pantoprazole 40 MG Tab.CR PO SCH (08:29)
[2021-12-20] MEDS: glipiZIDE 5 MG Tab.ER PO SCH (08:30)
[2021-12-20] MEDS: cloNIDine 0.1 MG Tab PO SCH (08:30)
[2021-12-20] MEDS: Folic Acid 1 MG Tab PO SCH (08:32)
[2021-12-20] MEDS: Docusate Sodium 100 MG Cap PO SCH (08:32)
[2021-12-20] MEDS: Hydroxyurea 500 MG Cap PO SCH (08:33)
[2021-12-20] MEDS: Aspirin 81 MG Tab.EC PO SCH (08:33)
[2021-12-20] MEDS: Furosemide 20 MG Tab PO SCH (08:34)
[2021-12-20] MEDS: Metoprolol Tartrate 50 MG Tab PO SCH (08:35)
[2021-12-20] MEDS: Magnesium Oxide 400 MG Tab PO SCH (08:38)
[2021-12-20] MEDS: Gabapentin 300 MG Cap PO SCH (08:39)
[2021-12-20] MEDS: Oxybutynin 5 MG Tab PO SCH (08:40)
[2021-12-20] MEDS: Rivaroxaban 10 MG Tab PO SCH (08:41)
[2021-12-20] MEDS: Multivitamins with Iron/Calcium/Folic Acid/Minerals Tab PO SCH (08:41)
[2021-12-20] MEDS: Cholecalciferol (Vitamin D3) 25 MCG Tab PO SCH (08:41)
[2021-12-20] MEDS: Allopurinol 100 MG Tab PO SCH (08:42)
[2021-12-20 08:46] VITALS: PULSE 75
[2021-12-20] MEDS: Levofloxacin/Dextrose 5%-Water 750 MG in Premix Bag 1 BAG IV SCH (08:47)
[2021-12-20] MEDS: Insulin Lispro 100 Unit/ML 3 ML KwikPen SUBCUT SCH ×2 (08:53→11:32)
[2021-12-20] MEDS: Potassium Chloride 10 MEQ Cap.ER PO SCH (09:03)
[2021-12-20] MEDS: Sodium Chloride 0.9% 1,000 ML IV SCH (09:37)
== END 2021-12-20 12:27 | disposition home or self-care (01) | DRG 439 ==
LOC: JP.ED 12:52 → JP.MS 16:37
PROVIDERS: ADMIT Internal Medicine; ATTEND Internal Medicine
DX: K85.30 Drug induced acute pancreatitis without necrosis or infection (principal); K85.90 Acute pancreatitis without necrosis or infection, unspecified; I13.0 Hypertensive heart and chronic kidney disease with heart failure and stage 1 through stage 4 chronic kidney disease, or unspecified chronic kidney disease; K92.2 Gastrointestinal hemorrhage, unspecified; D45 Polycythemia vera; E03.9 Hypothyroidism, unspecified; N28.89 Other specified disorders of kidney and ureter; E78.5 Hyperlipidemia, unspecified; G47.30 Sleep apnea, unspecified; I73.9 Peripheral vascular disease, unspecified; Z95.5 Presence of coronary angioplasty implant and graft; T46.6X5A Adverse effect of antihyperlipidemic and antiarteriosclerotic drugs, initial encounter; T38.3X5A Adverse effect of insulin and oral hypoglycemic [antidiabetic] drugs, initial encounter; Z20.822 Contact with and (suspected) exposure to COVID-19; N18.9 Chronic kidney disease, unspecified; H54.7 Unspecified visual loss; I50.9 Heart failure, unspecified; E78.00 Pure hypercholesterolemia, unspecified; E11.22 Type 2 diabetes mellitus with diabetic chronic kidney disease; E11.51 Type 2 diabetes mellitus with diabetic peripheral angiopathy without gangrene; K59.09 Other constipation; K21.9 Gastro-esophageal reflux disease without esophagitis; K57.90 Diverticulosis of intestine, part unspecified, without perforation or abscess without bleeding; R33.9 Retention of urine, unspecified; M54.9 Dorsalgia, unspecified; G89.29 Other chronic pain; M79.7 Fibromyalgia; H91.93 Unspecified hearing loss, bilateral; I25.10 Atherosclerotic heart disease of native coronary artery without angina pectoris; N39.3 Stress incontinence (female) (male); E11.42 Type 2 diabetes mellitus with diabetic polyneuropathy; D47.3 Essential (hemorrhagic) thrombocythemia; E66.9 Obesity, unspecified; Z86.73 Personal history of transient ischemic attack (TIA), and cerebral infarction without residual deficits; Z68.39 Body mass index [BMI] 39.0-39.9, adult; Z88.5 Allergy status to narcotic agent; Z88.8 Allergy status to other drugs, medicaments and biological substances; Z79.4 Long term (current) use of insulin; Z79.82 Long term (current) use of aspirin; Z79.899 Other long term (current) drug therapy; Z95.0 Presence of cardiac pacemaker; Z86.718 Personal history of other venous thrombosis and embolism; Z79.01 Long term (current) use of anticoagulants; Z79.890 Hormone replacement therapy
CPT/HCPCS: 0241U; 36415; 51702; 51798; 74176; 76705; 76705-26; 80048; 80053; 81001; 82140; 82947; 83690; 85025; 85610; 86140; 87040; 96374; 97162-GP; 97530-GP; 99284; 99285-25; A9270-GY; J0696; J1815; J1815-GY; J1956; J2405; J7030; J7120

== ENCOUNTER 2022-01-12 08:35 | Emergency (ER) | payer MEDICARE ==
[2022-01-12 09:01] VITALS: BP 139/63; PULSE 60
== END 2022-01-12 10:21 | disposition home or self-care (01) ==
LOC: JP.ED 08:35
DX: S09.90XA Unspecified injury of head, initial encounter (principal); I25.10 Atherosclerotic heart disease of native coronary artery without angina pectoris; E78.00 Pure hypercholesterolemia, unspecified; E11.22 Type 2 diabetes mellitus with diabetic chronic kidney disease; I13.0 Hypertensive heart and chronic kidney disease with heart failure and stage 1 through stage 4 chronic kidney disease, or unspecified chronic kidney disease; N18.9 Chronic kidney disease, unspecified; I50.9 Heart failure, unspecified; E66.9 Obesity, unspecified; Z68.36 Body mass index [BMI] 36.0-36.9, adult; Z95.0 Presence of cardiac pacemaker; Z88.5 Allergy status to narcotic agent; Z88.8 Allergy status to other drugs, medicaments and biological substances; Z79.01 Long term (current) use of anticoagulants; Z79.82 Long term (current) use of aspirin; Z79.899 Other long term (current) drug therapy; W18.30XA Fall on same level, unspecified, initial encounter
CPT/HCPCS: 70450; 99283; 99283-25

== ENCOUNTER 2022-05-13 10:37 | Observation (INO) | payer MEDICARE ==
[2022-05-13] MEDS ORDERED: 50% Dextrose in Water 50 ML Syringe IVPUSH PRN (13:20)
[2022-05-13] MEDS ORDERED: Glucagon,Human Recombinant 1 MG Vial IM PRN (13:20)
[2022-05-13 14:14] LABS: ESTIMATED GFR 37 mL/min (>60)
[2022-05-13] MEDS: Sodium Polystyrene Sulfonate 15 GM/60 ML Susp 60 ML Bot PO SCH ×2 (14:44→21:41)
[2022-05-13] MEDS: Nystatin Susp 100,000 Unit/ML 5 ML UD Cup PO SCH ×2 (15:19→21:41)
[2022-05-13] MEDS ORDERED: Nystatin Susp 100,000 Unit/ML 60 ML Bottle PO SCH (16:00)
[2022-05-13] MEDS: Insulin Lispro 100 Unit/ML 3 ML KwikPen SUBCUT SCH ×2 (16:31→21:24)
[2022-05-13] MEDS: glipiZIDE 5 MG Tab.ER PO SCH (16:37)
[2022-05-13] MEDS: Hydroxyurea 500 MG Cap PO SCH ×2 (16:37→21:40)
[2022-05-13] MEDS ORDERED: Insulin Glargine,Human Rec. Analog 100 Units/ML 3 ML Pen SUBCUT SCH (21:00)
[2022-05-13] MEDS ORDERED: Non-Formulary Medication 1 Each (Glipizide [Glucotrol Xl] 10 MG Tab.Er) PO SCH (21:00)
[2022-05-13] MEDS ORDERED: Non-Formulary Medication 1 Each (Gabapentin [Neurontin] 600 MG Tablet) PO SCH (21:00)
[2022-05-13] MEDS: Aspirin 81 MG Tab.EC PO SCH (21:39)
[2022-05-13] MEDS: Docusate Sodium 100 MG Cap PO SCH (21:39)
[2022-05-13] MEDS: Gabapentin 300 MG Cap PO SCH (21:40)
[2022-05-13] MEDS: Doxycycline 100 MG Cap PO SCH (21:40)
[2022-05-13] MEDS ORDERED: Insulin Glargine,Human Rec. Analog 100 Units/ML 3 ML Pen SUBCUT ONE (22:31)
[2022-05-14] MEDS: Nystatin Susp 100,000 Unit/ML 5 ML UD Cup PO SCH ×3 (05:54→10:50)
[2022-05-14] MEDS: Sodium Polystyrene Sulfonate 15 GM/60 ML Susp 60 ML Bot PO SCH (06:36)
[2022-05-14] MEDS ORDERED: Pantoprazole 40 MG Tab.CR PO SCH (07:30)
[2022-05-14] MEDS: Insulin Lispro 100 Unit/ML 3 ML KwikPen SUBCUT SCH ×2 (07:37→13:01)
[2022-05-14] MEDS: glipiZIDE 5 MG Tab.ER PO SCH (07:38)
[2022-05-14] MEDS ORDERED: VITAMIN B COMPLEX PO SCH (09:00)
[2022-05-14] MEDS ORDERED: FLUCONAZOLE 200 MG PO SCH (09:00)
[2022-05-14] MEDS ORDERED: Vitamin B Complex Tab PO SCH (09:00)
[2022-05-14] MEDS ORDERED: Allopurinol 100 MG Tab PO SCH (09:00)
[2022-05-14] MEDS ORDERED: Hydroxyurea 500 MG Cap PO SCH ×2 (09:00)
[2022-05-14] MEDS ORDERED: Verapamil 120 MG Tab.ER PO SCH (09:00)
[2022-05-14] MEDS ORDERED: Rivaroxaban 10 MG Tab PO SCH (09:00)
[2022-05-14] MEDS ORDERED: Non-Formulary Medication 1 Each (Omeprazole [Omeprazole] 20 MG Cap.Cr) PO SCH (09:00)
[2022-05-14] MEDS ORDERED: Fluconazole 100 MG Tab PO SCH (09:00)
[2022-05-14] MEDS ORDERED: Folic Acid 1 MG Tab PO SCH (09:00)
[2022-05-14] MEDS ORDERED: Non-Formulary Medication 1 Each (Allopurinol [Zyloprim] 300 MG Tablet) PO SCH (09:00)
[2022-05-14] MEDS ORDERED: Non-Formulary Medication 1 Each (Phentermine Hcl [Phentermine Hcl] 37.5 MG Capsule) PO SCH (09:00)
[2022-05-14] MEDS ORDERED: [UNRECOGNIZED DRUG - OTHER] PO SCH (09:00)
[2022-05-14] MEDS: Gabapentin 300 MG Cap PO SCH (09:08)
[2022-05-14] MEDS: Docusate Sodium 100 MG Cap PO SCH (09:08)
[2022-05-14] MEDS: Doxycycline 100 MG Cap PO SCH (09:09)
[2022-05-14] MEDS: Aspirin 81 MG Tab.EC PO SCH (09:09)
[2022-05-14 14:25] VITALS: BP 134/74; PULSE 87
[2022-05-14] MEDS ORDERED: Insulin Glargine,Human Rec. Analog 100 Units/ML 3 ML Pen SUBCUT ONE (21:30)
[2022-05-15] MEDS ORDERED: Hydrochlorothiazide 25 MG Tab PO SCH (09:00)
[2022-05-15] MEDS ORDERED: Spironolactone 25 MG Tab PO SCH (09:00)
== END 2022-05-14 16:44 | disposition home or self-care (01) ==
LOC: JP.MS 10:37 → INTOOBSV 10:37
PROVIDERS: ADMIT Internal Medicine; ATTEND Internal Medicine
DX: I95.9 Hypotension, unspecified (principal); I47.1 Supraventricular tachycardia; I25.10 Atherosclerotic heart disease of native coronary artery without angina pectoris; E78.00 Pure hypercholesterolemia, unspecified; I50.9 Heart failure, unspecified; I13.0 Hypertensive heart and chronic kidney disease with heart failure and stage 1 through stage 4 chronic kidney disease, or unspecified chronic kidney disease; N18.9 Chronic kidney disease, unspecified; G47.30 Sleep apnea, unspecified; E11.22 Type 2 diabetes mellitus with diabetic chronic kidney disease; L08.9 Local infection of the skin and subcutaneous tissue, unspecified; B95.8 Unspecified staphylococcus as the cause of diseases classified elsewhere; Z20.822 Contact with and (suspected) exposure to COVID-19; Z88.5 Allergy status to narcotic agent; Z79.899 Other long term (current) drug therapy; Z88.8 Allergy status to other drugs, medicaments and biological substances; Z79.82 Long term (current) use of aspirin; Z95.0 Presence of cardiac pacemaker
CPT/HCPCS: 36415; 80053; 82947; 84132; 85025; 97162; 97165; 97535; A9270; G0378; J1815; U0002

== ENCOUNTER 2022-08-28 00:36 | Inpatient (IN) | payer MEDICARE ==
[2022-08-28] MEDS ORDERED: Sodium Chloride 0.9% 500 ML IV SCH (01:30)
[2022-08-28] MEDS ORDERED: Sodium Chloride 0.9% 100 ML IV STA (01:34)
[2022-08-28] MEDS ORDERED: Iopamidol 612 MG/ML 100 ML Bottle IV SCH (01:45)
[2022-08-28] MEDS ORDERED: traMADol 50 MG Tab PO ONE (07:29)
[2022-08-28] MEDS ORDERED: Sodium Chloride 0.9% 10 ML Syringe FLUSH PRN (07:53)
[2022-08-28] MEDS ORDERED: traMADol 50 MG Tab PO PRN (08:01)
[2022-08-28] MEDS ORDERED: Glucagon,Human Recombinant 1 MG Vial IM PRN (08:01)
[2022-08-28] MEDS ORDERED: 50% Dextrose in Water 50 ML Syringe IVPUSH PRN (08:01)
[2022-08-28] MEDS: Folic Acid 1 MG Tab PO SCH (09:31)
[2022-08-28] MEDS: Verapamil 120 MG Tab.ER PO SCH (09:31)
[2022-08-28] MEDS: cloNIDine 0.1 MG Tab PO SCH ×2 (09:31→20:42)
[2022-08-28] MEDS: glipiZIDE 5 MG Tab.ER PO SCH ×2 (09:32→20:43)
[2022-08-28] MEDS: Hydrochlorothiazide 25 MG Tab PO SCH (09:32)
[2022-08-28] MEDS: Aspirin 81 MG Tab.EC PO SCH ×2 (09:32→20:43)
[2022-08-28] MEDS: Levothyroxine 25 MCG Tab PO SCH (09:32)
[2022-08-28] MEDS: Levothyroxine 112 MCG Tab PO SCH (09:33)
[2022-08-28] MEDS: Pantoprazole 40 MG Tab.CR PO SCH (09:33)
[2022-08-28] MEDS: Cholecalciferol (Vitamin D3) 25 MCG Tab PO SCH (09:33)
[2022-08-28] MEDS: Vitamin B Complex Tab PO SCH (09:33)
[2022-08-28] MEDS: Gabapentin 300 MG Cap PO SCH ×2 (09:33→20:45)
[2022-08-28] MEDS: Metoprolol Tartrate 25 MG Tab PO SCH ×2 (09:33→20:44)
[2022-08-28] MEDS: Allopurinol 100 MG Tab PO SCH (09:34)
[2022-08-28] MEDS: Insulin Glargine,Human Rec. Analog 100 Units/ML 3 ML Pen SUBCUT SCH (20:43)
[2022-08-28] MEDS: Rivaroxaban 15 MG Tab PO SCH (20:45)
[2022-08-28] MEDS: traMADol 50 MG Tab PO PRN (20:56)
[2022-08-29] MEDS: traMADol 50 MG Tab PO PRN ×2 (04:55→17:34)
[2022-08-29] MEDS: Levothyroxine 112 MCG Tab PO SCH (08:47)
[2022-08-29] MEDS: Levothyroxine 25 MCG Tab PO SCH (08:47)
[2022-08-29] MEDS: Aspirin 81 MG Tab.EC PO SCH ×2 (08:48→21:51)
[2022-08-29] MEDS: Vitamin B Complex Tab PO SCH (08:48)
[2022-08-29] MEDS: Pantoprazole 40 MG Tab.CR PO SCH (08:48)
[2022-08-29] MEDS: cloNIDine 0.1 MG Tab PO SCH ×2 (08:48→21:52)
[2022-08-29] MEDS: glipiZIDE 5 MG Tab.ER PO SCH ×2 (08:48→21:51)
[2022-08-29] MEDS: Allopurinol 100 MG Tab PO SCH (08:48)
[2022-08-29] MEDS: Verapamil 120 MG Tab.ER PO SCH (08:48)
[2022-08-29] MEDS: Cholecalciferol (Vitamin D3) 25 MCG Tab PO SCH (08:48)
[2022-08-29] MEDS: Hydrochlorothiazide 25 MG Tab PO SCH (08:49)
[2022-08-29] MEDS: Metoprolol Tartrate 25 MG Tab PO SCH ×2 (08:49→21:52)
[2022-08-29] MEDS: Folic Acid 1 MG Tab PO SCH (08:49)
[2022-08-29] MEDS: Gabapentin 300 MG Cap PO SCH ×2 (08:49→21:50)
[2022-08-29] MEDS: Acetaminophen 500 MG Tab PO SCH ×2 (13:19→21:51)
[2022-08-29] MEDS: Rivaroxaban 15 MG Tab PO SCH (21:50)
[2022-08-29] MEDS: Insulin Glargine,Human Rec. Analog 100 Units/ML 3 ML Pen SUBCUT SCH (21:52)
[2022-08-30] MEDS: traMADol 50 MG Tab PO PRN ×5 (01:06→23:38)
[2022-08-30] MEDS: Levothyroxine 25 MCG Tab PO SCH (07:05)
[2022-08-30] MEDS: Pantoprazole 40 MG Tab.CR PO SCH (07:05)
[2022-08-30] MEDS: Levothyroxine 112 MCG Tab PO SCH (07:05)
[2022-08-30] MEDS: Docusate Sodium 100 MG Cap PO PRN (09:33)
[2022-08-30] MEDS: Aspirin 81 MG Tab.EC PO SCH ×2 (09:34→20:52)
[2022-08-30] MEDS: glipiZIDE 5 MG Tab.ER PO SCH ×2 (09:34→20:52)
[2022-08-30] MEDS: Folic Acid 1 MG Tab PO SCH (09:34)
[2022-08-30] MEDS: Gabapentin 300 MG Cap PO SCH ×2 (09:35→20:52)
[2022-08-30] MEDS: Acetaminophen 500 MG Tab PO SCH ×3 (09:35→20:52)
[2022-08-30] MEDS: Vitamin B Complex Tab PO SCH (09:36)
[2022-08-30] MEDS: Cholecalciferol (Vitamin D3) 25 MCG Tab PO SCH (09:36)
[2022-08-30] MEDS: Allopurinol 100 MG Tab PO SCH (09:36)
[2022-08-30] MEDS: Verapamil 120 MG Tab.ER PO SCH (10:27)
[2022-08-30] MEDS: Metoprolol Tartrate 25 MG Tab PO SCH ×2 (10:28→20:53)
[2022-08-30] MEDS: cloNIDine 0.1 MG Tab PO SCH (10:28)
[2022-08-30] MEDS: Hydrochlorothiazide 25 MG Tab PO SCH (10:28)
[2022-08-30] MEDS: cefTRIAXone 1 GM in Sodium Chloride 0.9% 50 ML IV SCH (11:54)
[2022-08-30] MEDS: Rivaroxaban 15 MG Tab PO SCH (20:53)
[2022-08-30] MEDS: Insulin Glargine,Human Rec. Analog 100 Units/ML 3 ML Pen SUBCUT SCH (20:55)
[2022-08-31] MEDS: traMADol 50 MG Tab PO PRN (04:11)
[2022-08-31] MEDS: Pantoprazole 40 MG Tab.CR PO SCH (07:35)
[2022-08-31] MEDS: Levothyroxine 112 MCG Tab PO SCH (07:35)
[2022-08-31] MEDS: Levothyroxine 25 MCG Tab PO SCH (07:35)
[2022-08-31] MEDS: Gabapentin 300 MG Cap PO SCH (08:25)
[2022-08-31] MEDS: glipiZIDE 5 MG Tab.ER PO SCH (08:25)
[2022-08-31] MEDS: Aspirin 81 MG Tab.EC PO SCH (08:25)
[2022-08-31] MEDS: Metoprolol Tartrate 25 MG Tab PO SCH (08:25)
[2022-08-31] MEDS: Folic Acid 1 MG Tab PO SCH (08:25)
[2022-08-31] MEDS: Allopurinol 100 MG Tab PO SCH (08:25)
[2022-08-31] MEDS: Vitamin B Complex Tab PO SCH (08:26)
[2022-08-31] MEDS: Acetaminophen 500 MG Tab PO SCH ×2 (08:26→13:14)
[2022-08-31] MEDS: Cholecalciferol (Vitamin D3) 25 MCG Tab PO SCH (08:27)
[2022-08-31] MEDS: Docusate Sodium 100 MG Cap PO PRN (09:28)
[2022-08-31] MEDS: cefTRIAXone 1 GM in Sodium Chloride 0.9% 50 ML IV SCH (11:57)
[2022-08-31 14:21] VITALS: BP 140/55; PULSE 64
== END 2022-08-31 15:30 | disposition home health service (06) | DRG 206 ==
LOC: JP.ED 00:36 → JP.MS 07:53
PROVIDERS: ADMIT Internal Medicine; ATTEND Internal Medicine
DX: S20.211A Contusion of right front wall of thorax, initial encounter (principal); G89.11 Acute pain due to trauma; I12.9 Hypertensive chronic kidney disease with stage 1 through stage 4 chronic kidney disease, or unspecified chronic kidney disease; S22.31XA Fracture of one rib, right side, initial encounter for closed fracture; I13.0 Hypertensive heart and chronic kidney disease with heart failure and stage 1 through stage 4 chronic kidney disease, or unspecified chronic kidney disease; N39.0 Urinary tract infection, site not specified; E11.22 Type 2 diabetes mellitus with diabetic chronic kidney disease; N18.30 Chronic kidney disease, stage 3 unspecified; E03.9 Hypothyroidism, unspecified; E66.9 Obesity, unspecified; I48.0 Paroxysmal atrial fibrillation; G89.29 Other chronic pain; M54.50 Low back pain, unspecified; H91.90 Unspecified hearing loss, unspecified ear; H54.7 Unspecified visual loss; I25.10 Atherosclerotic heart disease of native coronary artery without angina pectoris; E78.00 Pure hypercholesterolemia, unspecified; I50.9 Heart failure, unspecified; E11.51 Type 2 diabetes mellitus with diabetic peripheral angiopathy without gangrene; G47.30 Sleep apnea, unspecified; K59.09 Other constipation; K57.90 Diverticulosis of intestine, part unspecified, without perforation or abscess without bleeding; K21.9 Gastro-esophageal reflux disease without esophagitis; R32 Unspecified urinary incontinence; M79.7 Fibromyalgia; E11.42 Type 2 diabetes mellitus with diabetic polyneuropathy; W17.89XA Other fall from one level to another, initial encounter; Z79.01 Long term (current) use of anticoagulants; Z90.89 Acquired absence of other organs; Z86.718 Personal history of other venous thrombosis and embolism; Z90.49 Acquired absence of other specified parts of digestive tract; Z98.890 Other specified postprocedural states; Z87.440 Personal history of urinary (tract) infections; Z79.82 Long term (current) use of aspirin; Z79.4 Long term (current) use of insulin; Z79.899 Other long term (current) drug therapy; Z88.6 Allergy status to analgesic agent; Z88.5 Allergy status to narcotic agent; Z97.4 Presence of external hearing-aid; Z95.0 Presence of cardiac pacemaker; Z87.01 Personal history of pneumonia (recurrent); Z95.5 Presence of coronary angioplasty implant and graft; I10 Essential (primary) hypertension; Z20.822 Contact with and (suspected) exposure to COVID-19
CPT/HCPCS: 36415; 71260; 74177; 80048; 85025; 99285; A9270; J3490; Q9967; 81001; 82947; 87086; 87088; 87186; 90662; 97110-GP; 97162-GP; 97530-GP; 97535-GP; G0008; J0696; J1815-GY; U0002

== ENCOUNTER 2023-01-01 18:06 | Emergency (ER) | payer MEDICARE ==
[2023-01-01] MEDS ORDERED: Sodium Chloride 0.9% 10 ML Syringe FLUSH PRN (18:54)
[2023-01-01 19:32] LABS: ESTIMATED GFR 31 mL/min (>60)
[2023-01-01] MEDS ORDERED: Sodium Chloride 0.9% 500 ML IV ONE (19:37)
[2023-01-01] MEDS ORDERED: Sodium Chloride 0.9% 10 ML Syringe FLUSH ONE (19:54)
[2023-01-01] MEDS ORDERED: Sodium Chloride 0.9% 50 ML IV ONE (19:54)
[2023-01-01] MEDS ORDERED: Iopamidol 612 MG/ML 100 ML Bottle IV ONE (19:54)
[2023-01-01 21:13] VITALS: BP 160/94; PULSE 74
== END 2023-01-01 22:45 | disposition home or self-care (01) ==
LOC: JP.ED 18:06
DX: K57.32 Diverticulitis of large intestine without perforation or abscess without bleeding (principal); E11.42 Type 2 diabetes mellitus with diabetic polyneuropathy; I13.0 Hypertensive heart and chronic kidney disease with heart failure and stage 1 through stage 4 chronic kidney disease, or unspecified chronic kidney disease; E11.22 Type 2 diabetes mellitus with diabetic chronic kidney disease; N18.9 Chronic kidney disease, unspecified; I50.9 Heart failure, unspecified; N17.9 Acute kidney failure, unspecified; I25.10 Atherosclerotic heart disease of native coronary artery without angina pectoris; E03.9 Hypothyroidism, unspecified; E66.9 Obesity, unspecified; Z68.39 Body mass index [BMI] 39.0-39.9, adult; Z79.01 Long term (current) use of anticoagulants; Z86.16 Personal history of COVID-19; Z88.5 Allergy status to narcotic agent; Z88.8 Allergy status to other drugs, medicaments and biological substances; Z79.82 Long term (current) use of aspirin; Z79.4 Long term (current) use of insulin; Z79.899 Other long term (current) drug therapy
CPT/HCPCS: 36415; 71045; 74177; 80053; 81001; 83605; 83690; 85025; 86140; 87086; 87088; 87186; 96360; 99284; J3490; J7040; Q9967

== ENCOUNTER 2023-05-22 09:23 | Inpatient (IN) | payer MEDICARE ==
[2023-05-22 11:02] LABS: BASOPHILS ABSOLUTE AUTO 0.05 K/uL (0.00-0.10); BASOPHILS PERCENT AUTO 0.4 % (0.1-1.3); EOSINOPHILS ABSOLUTE AUTO 0.04 K/uL (0.00-0.40); EOSINOPHILS PERCENT AUTO 0.4 % (0.0-5.4); HEMATOCRIT 38.7 % (34.3-46.0); HEMOGLOBIN 14.2 g/dL (11.2-15.5); IMMATURE GRAN ABSOLUTE AUTO 0.17 K/uL (0.00-0.23); IMMATURE GRAN PERCENT AUTO 1.5 % (0.0-0.7); LYMPHOCYTES ABSOLUTE AUTO 0.63 K/uL (0.8-3.3); LYMPHOCYTES PERCENT AUTO 5.5 % (11.4-47.7); MEAN CORPUSCULAR HEMOGLOBIN 46.1 pg (31.6-35.5); MEAN CORPUSCULAR HGB CONC 36.7 g/dL (31.6-35.5); MEAN CORPUSCULAR VOLUME 125.6 fL (81.4-99.0); MONOCYTES ABSOLUTE AUTO 0.72 K/uL (0.20-0.90); MONOCYTES PERCENT AUTO 6.3 % (3.3-12.6); NEUTROPHILS PERCENT AUTO 85.9 % (40.0-78.1); PLATELET COUNT,PLT 281 K/uL (130-375); RED BLOOD CELL COUNT 3.08 M/uL (3.77-5.24); WHITE BLOOD CELL COUNT,WBC 11.4 K/uL (3.2-11.0)
[2023-05-22] MEDS ORDERED: Metoprolol Tartrate 25 MG Tab PO ONE (11:10)
[2023-05-22 11:18] LABS: C-REACTIVE PROTEIN 1.19 mg/dL (0.0-0.3); CALCIUM 9.1 mg/dL (8.5-10.1); CREATININE 1.2 mg/dL (0.6-1.0); EST CRCL DRUG DOSING (CG) 37.01 mL/min; POTASSIUM,K 4.1 mmol/L (3.6-5.2)
[2023-05-22 11:20] LABS: ANION GAP 14.1 mmol/L (5.0-14.0)
[2023-05-22 11:46] LABS: APPEARANCE,URINE CLOUDY (CLEAR); BILIRUBIN,URINE SMALL (NEGATIVE); COLOR,URINE YELLOW (YELLOW); GLUCOSE,URINE NEGATIVE (NEGATIVE); KETONES,URINE TRACE mg/dL (NEGATIVE); LEUKOCYTE ESTERASE,URINE LARGE (NEGATIVE); NITRITE,URINE POSITIVE (NEGATIVE); OCCULT BLOOD,URINE TRACE-LYSED (NEGATIVE); PH,URINE 5.5 (5.0-8.0); PROTEIN,URINE 30 mg/dL (NEGATIVE); UROBILINOGEN,URINE 0.2 EU/dL (0.2-1.0)
[2023-05-22 11:54] LABS: AMORPHOUS SEDIMENT,URINE NOT SEEN; BACTERIA,URINE MANY; EPITHELIAL CELLS,URINE FEW; MUCUS,URINE FEW; RBC,URINE 20-30 (0-5); WBC,URINE 40-50 (0-5)
[2023-05-22] MEDS ORDERED: Sodium Chloride 0.9% 1,000 ML IV ONE (12:12)
[2023-05-22] MEDS ORDERED: cefTRIAXone 2 GM in Sodium Chloride 0.9% 50 ML IV ONE (12:12)
[2023-05-22] MEDS ORDERED: Acetaminophen 325 MG Tab PO PRN (16:10)
[2023-05-22] MEDS ORDERED: Ondansetron 4 MG Tab.DIS PO PRN (16:10)
[2023-05-22] MEDS ORDERED: Ondansetron 4 MG/2 ML SDV IV PRN (16:10)
[2023-05-22] MEDS ORDERED: Magnesium Hydroxide 400 MG/5 ML Susp 30 ML Cup PO PRN (16:10)
[2023-05-22] MEDS: Insulin Lispro 100 Unit/ML 3 ML KwikPen SUBCUT SCH ×2 (16:58→20:49)
[2023-05-22] MEDS: traMADol 50 MG Tab PO PRN (16:59)
[2023-05-22] MEDS: Sennosides/Docusate Sodium 50-8.6 MG Tab PO PRN (16:59)
[2023-05-22] MEDS: Sodium Chloride 0.9% 1,000 ML IV SCH (17:08)
[2023-05-22] MEDS: Aspirin 81 MG Tab.EC PO SCH (20:43)
[2023-05-22] MEDS: Lactobacillus Rhamnosus GG (Probiotic) Cap PO SCH (20:43)
[2023-05-22] MEDS: Metoprolol Tartrate 50 MG Tab PO SCH (20:44)
[2023-05-22] MEDS: Gabapentin 300 MG Cap PO SCH (20:44)
[2023-05-22] MEDS: Acetaminophen 500 MG Tab PO SCH (20:44)
[2023-05-22] MEDS: Rivaroxaban 15 MG Tab PO SCH (20:45)
[2023-05-22] MEDS: Insulin Glargine,Human Rec. Analog 100 Units/ML 3 ML Pen SUBCUT SCH (20:48)
[2023-05-22] MEDS: Melatonin 3 MG Tab PO PRN (21:48)
[2023-05-23] MEDS: Sodium Chloride 0.9% 1,000 ML IV SCH (03:22)
[2023-05-23 04:39] LABS: HEMATOCRIT 35.3 % (34.3-46.0); HEMOGLOBIN 12.3 g/dL (11.2-15.5); MEAN CORPUSCULAR HEMOGLOBIN 45.2 pg (31.6-35.5); MEAN CORPUSCULAR HGB CONC 34.8 g/dL (31.6-35.5); MEAN CORPUSCULAR VOLUME 129.8 fL (81.4-99.0); RED BLOOD CELL COUNT 2.72 M/uL (3.77-5.24); WHITE BLOOD CELL COUNT,WBC 5.8 K/uL (3.2-11.0)
[2023-05-23 05:11] LABS: ANION GAP 8.6 mmol/L (5.0-14.0); CALCIUM 8.5 mg/dL (8.5-10.1); CREATININE 1.2 mg/dL (0.6-1.0); EST CRCL DRUG DOSING (CG) 37.01 mL/min; POTASSIUM,K 3.7 mmol/L (3.6-5.2)
[2023-05-23] MEDS: Levothyroxine 112 MCG Tab PO SCH (07:37)
[2023-05-23] MEDS: Levothyroxine 25 MCG Tab PO SCH (07:37)
[2023-05-23] MEDS: Pantoprazole 40 MG Tab.CR PO SCH (07:38)
[2023-05-23] MEDS: Insulin Lispro 100 Unit/ML 3 ML KwikPen SUBCUT SCH ×4 (07:43→21:04)
[2023-05-23] MEDS: Allopurinol 100 MG Tab PO SCH (08:11)
[2023-05-23] MEDS: Verapamil 120 MG Tab.ER PO SCH (08:11)
[2023-05-23] MEDS: Acetaminophen 500 MG Tab PO SCH ×3 (08:11→20:59)
[2023-05-23] MEDS: Gabapentin 300 MG Cap PO SCH ×3 (08:12→20:59)
[2023-05-23] MEDS: Aspirin 81 MG Tab.EC PO SCH ×2 (08:12→20:59)
[2023-05-23] MEDS: Metoprolol Tartrate 50 MG Tab PO SCH ×2 (08:12→14:05)
[2023-05-23] MEDS: Lactobacillus Rhamnosus GG (Probiotic) Cap PO SCH ×2 (08:12→20:59)
[2023-05-23] MEDS ORDERED: cefTRIAXone 2 GM in Sodium Chloride 0.9% 50 ML IV SCH (12:00)
[2023-05-23] MEDS: Rivaroxaban 15 MG Tab PO SCH (20:59)
[2023-05-23] MEDS: Metoprolol Tartrate 25 MG Tab PO SCH (20:59)
[2023-05-23] MEDS: Insulin Glargine,Human Rec. Analog 100 Units/ML 3 ML Pen SUBCUT SCH (21:00)
[2023-05-23] MEDS: Melatonin 3 MG Tab PO PRN (22:09)
[2023-05-24] MEDS: Insulin Lispro 100 Unit/ML 3 ML KwikPen SUBCUT SCH ×4 (07:37→21:13)
[2023-05-24] MEDS: Lactobacillus Rhamnosus GG (Probiotic) Cap PO SCH ×2 (08:01→21:13)
[2023-05-24] MEDS: Gabapentin 300 MG Cap PO SCH ×3 (08:01→21:14)
[2023-05-24] MEDS: Verapamil 120 MG Tab.ER PO SCH (08:02)
[2023-05-24] MEDS: Metoprolol Tartrate 25 MG Tab PO SCH ×3 (08:03→21:13)
[2023-05-24] MEDS: Levothyroxine 112 MCG Tab PO SCH (08:03)
[2023-05-24] MEDS: Levothyroxine 25 MCG Tab PO SCH (08:04)
[2023-05-24] MEDS: Acetaminophen 500 MG Tab PO SCH ×3 (08:04→21:14)
[2023-05-24] MEDS: Aspirin 81 MG Tab.EC PO SCH ×2 (08:04→21:14)
[2023-05-24] MEDS: Pantoprazole 40 MG Tab.CR PO SCH (08:04)
[2023-05-24] MEDS: Allopurinol 100 MG Tab PO SCH (08:05)
[2023-05-24] MEDS: Cefdinir 300 MG Cap PO SCH ×2 (09:45→21:14)
[2023-05-24] MEDS: Melatonin 3 MG Tab PO PRN (21:12)
[2023-05-24] MEDS: Insulin Glargine,Human Rec. Analog 100 Units/ML 3 ML Pen SUBCUT SCH (21:13)
[2023-05-24] MEDS: Rivaroxaban 15 MG Tab PO SCH (21:15)
[2023-05-25] MEDS: Insulin Lispro 100 Unit/ML 3 ML KwikPen SUBCUT SCH ×4 (08:15→21:13)
[2023-05-25] MEDS: Levothyroxine 112 MCG Tab PO SCH (08:16)
[2023-05-25] MEDS: Pantoprazole 40 MG Tab.CR PO SCH (08:17)
[2023-05-25] MEDS: Verapamil 120 MG Tab.ER PO SCH (08:17)
[2023-05-25] MEDS: Lactobacillus Rhamnosus GG (Probiotic) Cap PO SCH ×2 (08:17→20:29)
[2023-05-25] MEDS: Levothyroxine 25 MCG Tab PO SCH (08:17)
[2023-05-25] MEDS: Aspirin 81 MG Tab.EC PO SCH ×2 (08:17→20:27)
[2023-05-25] MEDS: Cefdinir 300 MG Cap PO SCH ×2 (08:18→20:29)
[2023-05-25] MEDS: Gabapentin 300 MG Cap PO SCH ×3 (08:18→20:28)
[2023-05-25] MEDS: Acetaminophen 500 MG Tab PO SCH ×3 (08:18→20:28)
[2023-05-25] MEDS: Metoprolol Tartrate 25 MG Tab PO SCH ×3 (08:18→20:31)
[2023-05-25] MEDS: Allopurinol 100 MG Tab PO SCH (08:20)
[2023-05-25] MEDS: traMADol 50 MG Tab PO PRN (20:27)
[2023-05-25] MEDS: Melatonin 3 MG Tab PO PRN (20:28)
[2023-05-25] MEDS: Rivaroxaban 15 MG Tab PO SCH (20:31)
[2023-05-25] MEDS: Insulin Glargine,Human Rec. Analog 100 Units/ML 3 ML Pen SUBCUT SCH (21:13)
[2023-05-26] MEDS: Levothyroxine 25 MCG Tab PO SCH (07:32)
[2023-05-26] MEDS: Pantoprazole 40 MG Tab.CR PO SCH (07:32)
[2023-05-26] MEDS: Levothyroxine 112 MCG Tab PO SCH (07:32)
[2023-05-26] MEDS: Cefdinir 300 MG Cap PO SCH ×2 (09:00→20:46)
[2023-05-26] MEDS: Verapamil 120 MG Tab.ER PO SCH (09:00)
[2023-05-26] MEDS: Gabapentin 300 MG Cap PO SCH ×3 (09:00→20:44)
[2023-05-26] MEDS: Aspirin 81 MG Tab.EC PO SCH ×2 (09:01→20:47)
[2023-05-26] MEDS: Acetaminophen 500 MG Tab PO SCH ×3 (09:01→20:46)
[2023-05-26] MEDS: Metoprolol Tartrate 25 MG Tab PO SCH ×3 (09:01→20:45)
[2023-05-26] MEDS: Allopurinol 100 MG Tab PO SCH (09:01)
[2023-05-26] MEDS: Lactobacillus Rhamnosus GG (Probiotic) Cap PO SCH ×2 (09:01→20:45)
[2023-05-26] MEDS: Insulin Lispro 100 Unit/ML 3 ML KwikPen SUBCUT SCH ×4 (09:02→21:31)
[2023-05-26] MEDS: Sennosides/Docusate Sodium 50-8.6 MG Tab PO PRN (20:44)
[2023-05-26] MEDS: Rivaroxaban 15 MG Tab PO SCH (20:47)
[2023-05-26] MEDS: Melatonin 3 MG Tab PO PRN (20:51)
[2023-05-26] MEDS: Insulin Glargine,Human Rec. Analog 100 Units/ML 3 ML Pen SUBCUT SCH (21:32)
[2023-05-27] MEDS: Levothyroxine 25 MCG Tab PO SCH (07:35)
[2023-05-27] MEDS: Pantoprazole 40 MG Tab.CR PO SCH (07:36)
[2023-05-27] MEDS: Levothyroxine 112 MCG Tab PO SCH (07:36)
[2023-05-27] MEDS: Insulin Lispro 100 Unit/ML 3 ML KwikPen SUBCUT SCH (07:36)
[2023-05-27] MEDS: Acetaminophen 500 MG Tab PO SCH (08:08)
[2023-05-27] MEDS: Allopurinol 100 MG Tab PO SCH (08:08)
[2023-05-27] MEDS: Cefdinir 300 MG Cap PO SCH (08:09)
[2023-05-27] MEDS: Aspirin 81 MG Tab.EC PO SCH (08:09)
[2023-05-27] MEDS: Lactobacillus Rhamnosus GG (Probiotic) Cap PO SCH (08:09)
[2023-05-27] MEDS: Gabapentin 300 MG Cap PO SCH (08:09)
[2023-05-27] MEDS: Metoprolol Tartrate 25 MG Tab PO SCH (08:09)
[2023-05-27] MEDS: Verapamil 120 MG Tab.ER PO SCH (08:10)
[2023-05-27 10:44] VITALS: BP 132/74; PULSE 88
== END 2023-05-27 11:00 | disposition home or self-care (01) | DRG 872 ==
LOC: JP.ED 09:23 → JP.MS 15:06
PROVIDERS: ADMIT Internal Medicine; ATTEND Internal Medicine
DX: A41.9 Sepsis, unspecified organism (principal); N30.00 Acute cystitis without hematuria; I13.0 Hypertensive heart and chronic kidney disease with heart failure and stage 1 through stage 4 chronic kidney disease, or unspecified chronic kidney disease; N39.0 Urinary tract infection, site not specified; I50.9 Heart failure, unspecified; E86.0 Dehydration; G47.30 Sleep apnea, unspecified; K59.09 Other constipation; Z20.822 Contact with and (suspected) exposure to COVID-19; N18.9 Chronic kidney disease, unspecified; E11.42 Type 2 diabetes mellitus with diabetic polyneuropathy; E11.22 Type 2 diabetes mellitus with diabetic chronic kidney disease; E11.51 Type 2 diabetes mellitus with diabetic peripheral angiopathy without gangrene; I73.9 Peripheral vascular disease, unspecified; I48.91 Unspecified atrial fibrillation; E11.9 Type 2 diabetes mellitus without complications; I10 Essential (primary) hypertension; B96.89 Other specified bacterial agents as the cause of diseases classified elsewhere; D72.829 Elevated white blood cell count, unspecified; D75.89 Other specified diseases of blood and blood-forming organs; R47.1 Dysarthria and anarthria; Z88.8 Allergy status to other drugs, medicaments and biological substances; Z88.5 Allergy status to narcotic agent; E03.9 Hypothyroidism, unspecified; Z79.4 Long term (current) use of insulin; I25.10 Atherosclerotic heart disease of native coronary artery without angina pectoris; E78.00 Pure hypercholesterolemia, unspecified; K21.9 Gastro-esophageal reflux disease without esophagitis; E66.9 Obesity, unspecified; Z87.01 Personal history of pneumonia (recurrent); Z87.81 Personal history of (healed) traumatic fracture; Z98.890 Other specified postprocedural states; Z68.37 Body mass index [BMI] 37.0-37.9, adult; Z86.16 Personal history of COVID-19; Z90.89 Acquired absence of other organs; Z79.01 Long term (current) use of anticoagulants; Z79.82 Long term (current) use of aspirin; Z79.899 Other long term (current) drug therapy; Z95.0 Presence of cardiac pacemaker; Z95.5 Presence of coronary angioplasty implant and graft; Z86.73 Personal history of transient ischemic attack (TIA), and cerebral infarction without residual deficits; Z86.718 Personal history of other venous thrombosis and embolism; W19.XXXA Unspecified fall, initial encounter
CPT/HCPCS: 36415; 80048; 81001; 82550; 82607; 84207; 85025; 86140; 96365; 99284; 99285; A9270; J0696; J3490; J7030; U0002; 82947; 85027; 87086; 87088; 87186; 97110-GP; 97161-GP; 97165-GO; 97530-GP; 99223; 99232; 99233; 99238; J1815; J1815-GY

== ENCOUNTER 2023-07-07 17:01 | Emergency (ER) | payer MEDICARE ==
[2023-07-07] MEDS ORDERED: Sodium Chloride 0.9% 10 ML Syringe FLUSH PRN (17:03)
[2023-07-07] MEDS ORDERED: Sodium Chloride 0.9% 1,000 ML IV ONE (17:04)
[2023-07-07 17:29] LABS: BASOPHILS PERCENT AUTO 0.1 % (0.1-1.3); EOSINOPHILS ABSOLUTE AUTO 0.07 K/uL (0.00-0.40); EOSINOPHILS PERCENT AUTO 0.6 % (0.0-5.4); HEMATOCRIT 43.3 % (34.3-46.0); HEMOGLOBIN 15.4 g/dL (11.2-15.5); IMMATURE GRAN ABSOLUTE AUTO 0.11 K/uL (0.00-0.23); LYMPHOCYTES ABSOLUTE AUTO 0.36 K/uL (0.8-3.3); LYMPHOCYTES PERCENT AUTO 3.2 % (11.4-47.7); MEAN CORPUSCULAR HEMOGLOBIN 42.9 pg (31.6-35.5); MEAN CORPUSCULAR HGB CONC 35.6 g/dL (31.6-35.5); MEAN CORPUSCULAR VOLUME 120.6 fL (81.4-99.0); MONOCYTES ABSOLUTE AUTO 0.82 K/uL (0.20-0.90); MONOCYTES PERCENT AUTO 7.4 % (3.3-12.6); NEUTROPHILS ABSOLUTE AUTO 9.73 K/uL (1.0-7.6); NEUTROPHILS PERCENT AUTO 87.7 % (40.0-78.1); PLATELET COUNT,PLT 180 K/uL (130-375); RED BLOOD CELL COUNT 3.59 M/uL (3.77-5.24); WHITE BLOOD CELL COUNT,WBC 11.1 K/uL (3.2-11.0)
[2023-07-07 17:31] LABS: BASOPHILS ABSOLUTE AUTO 0.01 K/uL (0.00-0.10)
[2023-07-07 17:42] LABS: BASE EXCESS VENOUS 8.5 mm/L; BICARBONATE,VENOUS 33.5 mmol/L; CARBOXYHEMOGLOBIN 1.6 % (0.0-1.6); METHEMOGLOBIN 0.7 %; O2 SATURATION VENOUS 66.4; OXYHEMOGLOBIN 64.9 %; PCO2 VENOUS 47.7 mm/Hg; PH,VENOUS 7.461 (7.350-7.450); TOTAL HEMOGLOBIN 16.2 g/dL (12.0-16.0)
[2023-07-07 17:49] LABS: INR 1.2; PTT,PARTIAL THROMBOPLSTIN TIME 31.2 sec (21.8-27.3)
[2023-07-07 18:08] LABS: A/G RATIO 0.8 (1.2-2.2); ALANINE AMINOTRANSFERASE,ALT 26 U/L (12-78); ALBUMIN 3.2 g/dL (3.4-5.0); ALKALINE PHOSPHATASE 145 U/L (46-116); ANION GAP 8.9 mmol/L (5.0-14.0); ASPARTATE AMNIOTRANSFERASE,AST 43 U/L (15-37); BILIRUBIN TOTAL 0.5 mg/dL (0.2-1.0); BLOOD UREA NITROGEN,BUN 60 mg/dL (7-18); C-REACTIVE PROTEIN 11.45 mg/dL (0.0-0.3); CALCIUM 8.8 mg/dL (8.5-10.1); CARBON DIOXIDE,CO2 34 mmol/L (21-32); CHLORIDE,CL 94 mmol/L (100-108); CREATININE 2.5 mg/dL (0.6-1.0); ESTIMATED GFR 20 mL/min (>60); GLUCOSE RANDOM 180 mg/dL (74-106); POTASSIUM,K 3.9 mmol/L (3.6-5.2); PROTEIN TOTAL,TP 7.3 g/dL (6.4-8.2); SODIUM,NA 133 mmol/L (140-148)
[2023-07-07 18:55] LABS: CORONAVIRUS COVID-19 NAA NEGATIVE (NEGATIVE); INFLUENZA A NAA NEGATIVE (NEGATIVE); INFLUENZA B NAA NEGATIVE (NEGATIVE); RESPIRATORY SYNCYTIAL VIR NAA NEGATIVE (NEGATIVE)
[2023-07-07] MEDS ORDERED: cefTRIAXone 2 GM in Sodium Chloride 0.9% 50 ML IV ONE (19:47)
[2023-07-07] MEDS ORDERED: metroNIDAZOLE/Normal Saline 500 MG in Premix Bag 1 BAG IV ONE (19:47)
[2023-07-07] MEDS ORDERED: Sodium Chloride 0.9% 1,000 ML IV SCH (20:00)
[2023-07-07 21:00] VITALS: BP 157/64; PULSE 63
== END 2023-07-07 21:45 ==
LOC: JP.ED 17:01
DX: N17.9 Acute kidney failure, unspecified (principal); E86.0 Dehydration; K52.9 Noninfective gastroenteritis and colitis, unspecified; E83.41 Hypermagnesemia; K63.9 Disease of intestine, unspecified; R09.02 Hypoxemia; I70.90 Unspecified atherosclerosis; I25.10 Atherosclerotic heart disease of native coronary artery without angina pectoris; E78.00 Pure hypercholesterolemia, unspecified; I13.0 Hypertensive heart and chronic kidney disease with heart failure and stage 1 through stage 4 chronic kidney disease, or unspecified chronic kidney disease; E11.22 Type 2 diabetes mellitus with diabetic chronic kidney disease; I50.9 Heart failure, unspecified; N18.9 Chronic kidney disease, unspecified; E03.9 Hypothyroidism, unspecified; E11.40 Type 2 diabetes mellitus with diabetic neuropathy, unspecified; E66.9 Obesity, unspecified; Z68.37 Body mass index [BMI] 37.0-37.9, adult; Z86.16 Personal history of COVID-19; Z86.73 Personal history of transient ischemic attack (TIA), and cerebral infarction without residual deficits; Z20.822 Contact with and (suspected) exposure to COVID-19; Z88.5 Allergy status to narcotic agent; Z88.8 Allergy status to other drugs, medicaments and biological substances; Z79.82 Long term (current) use of aspirin; Z79.4 Long term (current) use of insulin; Z79.84 Long term (current) use of oral hypoglycemic drugs; Z79.899 Other long term (current) drug therapy
CPT/HCPCS: 0241U; 36415; 70450; 71045; 74176; 80053; 82803; 83605; 83735; 85025; 85610; 85730; 86140; 96361; 96365; 96367; 99285; J0696; J3490; J7030

== ENCOUNTER 2024-06-07 14:35 | Inpatient (IN) | payer MEDICARE ==
[2024-06-07 15:09] LABS: BASOPHILS ABSOLUTE AUTO 0.04 K/uL (0.00-0.10); BASOPHILS PERCENT AUTO 0.4 % (0.1-1.3); EOSINOPHILS ABSOLUTE AUTO 0.05 K/uL (0.00-0.40); EOSINOPHILS PERCENT AUTO 0.5 % (0.0-5.4); HEMATOCRIT 38.9 % (34.3-46.0); HEMOGLOBIN 14.3 g/dL (11.2-15.5); IMMATURE GRAN ABSOLUTE AUTO 0.11 K/uL (0.00-0.23); IMMATURE GRAN PERCENT AUTO 1.2 % (0.0-0.7); LYMPHOCYTES ABSOLUTE AUTO 0.74 K/uL (0.8-3.3); MEAN CORPUSCULAR HEMOGLOBIN 43.1 pg (31.6-35.5); MEAN CORPUSCULAR HGB CONC 36.8 g/dL (31.6-35.5); MEAN CORPUSCULAR VOLUME 117.2 fL (81.4-99.0); MONOCYTES PERCENT AUTO 9.8 % (3.3-12.6); NEUTROPHILS ABSOLUTE AUTO 7.36 K/uL (1.0-7.6); NEUTROPHILS PERCENT AUTO 80.1 % (40.0-78.1); PLATELET COUNT,PLT 157 K/uL (130-375); RED BLOOD CELL COUNT 3.32 M/uL (3.77-5.24); WHITE BLOOD CELL COUNT,WBC 9.2 K/uL (3.2-11.0)
[2024-06-07 15:30] LABS: A/G RATIO 0.9 (1.2-2.2); ALANINE AMINOTRANSFERASE,ALT 30 U/L (12-78); ALKALINE PHOSPHATASE 92 U/L (46-116); ANION GAP 13.1 mmol/L (5.0-14.0); ASPARTATE AMNIOTRANSFERASE,AST 28 U/L (15-37); BILIRUBIN TOTAL 0.6 mg/dL (0.2-1.0); BLOOD UREA NITROGEN,BUN 15 mg/dL (7-18); CALCIUM 9.5 mg/dL (8.5-10.1); CARBON DIOXIDE,CO2 27 mmol/L (21-32); CHLORIDE,CL 103 mmol/L (100-108); CREATININE 1.2 mg/dL (0.6-1.0); EST CRCL DRUG DOSING (CG) 36.45 mL/min; ESTIMATED GFR 47 mL/min (>60); GLUCOSE RANDOM 210 mg/dL (74-106); POTASSIUM,K 4.1 mmol/L (3.6-5.2); PROTEIN TOTAL,TP 6.5 g/dL (6.4-8.2); SODIUM,NA 139 mmol/L (140-148)
[2024-06-07 16:38] LABS: APPEARANCE,URINE CLOUDY (CLEAR); BILIRUBIN,URINE MODERATE (NEGATIVE); COLOR,URINE YELLOW (YELLOW); GLUCOSE,URINE NEGATIVE (NEGATIVE); KETONES,URINE 15 mg/dL (NEGATIVE); LEUKOCYTE ESTERASE,URINE NEGATIVE (NEGATIVE); NITRITE,URINE NEGATIVE (NEGATIVE); OCCULT BLOOD,URINE NEGATIVE (NEGATIVE); PH,URINE 6.5 (5.0-8.0); PROTEIN,URINE 100 mg/dL (NEGATIVE)
[2024-06-07 16:45] LABS: RBC,URINE 0-5 (0-5); WBC,URINE 20-30 (0-5)
[2024-06-07 16:46] LABS: AMORPHOUS SEDIMENT,URINE NOT SEEN; BACTERIA,URINE MANY; EPITHELIAL CELLS,URINE FEW; MUCUS,URINE RARE
[2024-06-07] MEDS: cefTRIAXone 1 GM in Sodium Chloride 0.9% 50 ML IV ONE (19:21)
[2024-06-07] MEDS ORDERED: COLCHICINE 0.6 MG PO PRN (19:25)
[2024-06-07] MEDS ORDERED: Cyclobenzaprine 10 MG Tab PO PRN (19:25)
[2024-06-07] MEDS ORDERED: 50% Dextrose in Water 50 ML Syringe IVPUSH PRN (19:27)
[2024-06-07] MEDS ORDERED: Glucagon,Human Recombinant 1 MG Vial IM PRN (19:27)
[2024-06-07] MEDS ORDERED: Docusate Sodium 100 MG Cap PO PRN (19:27)
[2024-06-07] MEDS ORDERED: HYDROXYUREA 500 MG PO SCH (19:30)
[2024-06-07] MEDS: Gabapentin 300 MG Cap PO SCH (21:58)
[2024-06-07] MEDS: Aspirin 81 MG Tab.EC PO SCH (21:58)
[2024-06-07] MEDS: Metoprolol Tartrate 25 MG Tab PO SCH (21:58)
[2024-06-07] MEDS: Oxybutynin 5 MG Tab PO SCH (22:00)
[2024-06-07] MEDS: Insulin Glargine,Human Rec. Analog 100 Units/ML 3 ML Pen SUBCUT SCH (22:00)
[2024-06-07] MEDS: Nystatin Susp 100,000 Unit/ML 60 ML Bottle PO SCH (22:11)
[2024-06-08] MEDS: Sodium Chloride 0.9% 1,000 ML IV SCH (04:38)
[2024-06-08] MEDS: Levothyroxine 25 MCG Tab PO SCH (08:08)
[2024-06-08] MEDS: Levothyroxine 112 MCG Tab PO SCH (08:09)
[2024-06-08] MEDS: Verapamil 120 MG Tab.ER PO SCH (08:09)
[2024-06-08] MEDS: Folic Acid 1 MG Tab PO SCH (08:09)
[2024-06-08] MEDS: Furosemide 20 MG Tab PO SCH (08:10)
[2024-06-08] MEDS: Rivaroxaban 15 MG Tab PO SCH (08:10)
[2024-06-08] MEDS: Cholecalciferol (Vitamin D3) 25 MCG Tab PO SCH (08:10)
[2024-06-08] MEDS: Ferrous Sulfate 325 MG Tab PO SCH (08:10)
[2024-06-08] MEDS: Pantoprazole 40 MG Tab.CR PO SCH (08:10)
[2024-06-08] MEDS: Allopurinol 100 MG Tab PO SCH (08:10)
[2024-06-08] MEDS ORDERED: Colchicine 0.6 MG Tab PO PRN (09:19)
[2024-06-08] MEDS ORDERED: Nystatin Susp 100,000 Unit/ML 5 ML UD Cup PO SCH (10:00)
[2024-06-08] MEDS: cefTRIAXone 1 GM in Sodium Chloride 0.9% 50 ML IV SCH (10:52)
[2024-06-08] MEDS: Metoprolol Succinate 25 MG Tab.ER PO SCH (10:58)
[2024-06-08] MEDS: Digoxin 125 MCG Tab PO SCH (13:23)
[2024-06-08] MEDS: Insulin Lispro 100 Unit/ML 3 ML KwikPen SUBCUT SCH (13:33)
[2024-06-08] MEDS: Insulin Lispro 100 Unit/ML 3 ML KwikPen SUBCUT ONE (13:34)
[2024-06-08] MEDS: Verapamil 120 MG Tab.ER PO ONE (16:30)
[2024-06-08] MEDS ORDERED: Insulin Lispro 100 Unit/ML 3 ML KwikPen SUBCUT SCH (17:00)
[2024-06-09 05:28] LABS: BASOPHILS ABSOLUTE AUTO 0.04 K/uL (0.00-0.10); BASOPHILS PERCENT AUTO 0.5 % (0.1-1.3); EOSINOPHILS ABSOLUTE AUTO 0.14 K/uL (0.00-0.40); EOSINOPHILS PERCENT AUTO 1.7 % (0.0-5.4); HEMATOCRIT 33.4 % (34.3-46.0); HEMOGLOBIN 12.1 g/dL (11.2-15.5); IMMATURE GRAN PERCENT AUTO 2.4 % (0.0-0.7); LYMPHOCYTES ABSOLUTE AUTO 0.82 K/uL (0.8-3.3); LYMPHOCYTES PERCENT AUTO 9.9 % (11.4-47.7); MEAN CORPUSCULAR HEMOGLOBIN 43.1 pg (31.6-35.5); MEAN CORPUSCULAR HGB CONC 36.2 g/dL (31.6-35.5); MONOCYTES ABSOLUTE AUTO 0.89 K/uL (0.20-0.90); MONOCYTES PERCENT AUTO 10.7 % (3.3-12.6); NEUTROPHILS ABSOLUTE AUTO 6.21 K/uL (1.0-7.6); NEUTROPHILS PERCENT AUTO 74.8 % (40.0-78.1); PLATELET COUNT,PLT 141 K/uL (130-375); RED BLOOD CELL COUNT 2.81 M/uL (3.77-5.24); WHITE BLOOD CELL COUNT,WBC 8.3 K/uL (3.2-11.0)
[2024-06-09 05:54] LABS: MEAN CORPUSCULAR VOLUME 118.9 fL (81.4-99.0)
[2024-06-09 06:02] LABS: A/G RATIO 0.8 (1.2-2.2); ALANINE AMINOTRANSFERASE,ALT 18 U/L (12-78); ALBUMIN 2.4 g/dL (3.4-5.0); ALKALINE PHOSPHATASE 84 U/L (46-116); ANION GAP 13.4 mmol/L (5.0-14.0); ASPARTATE AMNIOTRANSFERASE,AST 21 U/L (15-37); BILIRUBIN TOTAL 0.2 mg/dL (0.2-1.0); BLOOD UREA NITROGEN,BUN 18 mg/dL (7-18); CALCIUM 8.1 mg/dL (8.5-10.1); CARBON DIOXIDE,CO2 24 mmol/L (21-32); CHLORIDE,CL 106 mmol/L (100-108); CREATININE 1.3 mg/dL (0.6-1.0); DIGOXIN 0.99 ng/mL (0.90-2.00); EST CRCL DRUG DOSING (CG) 33.65 mL/min; ESTIMATED GFR 43 mL/min (>60); GLUCOSE RANDOM 222 mg/dL (74-106); POTASSIUM,K 3.4 mmol/L (3.6-5.2); PROTEIN TOTAL,TP 5.4 g/dL (6.4-8.2); SODIUM,NA 140 mmol/L (140-148)
[2024-06-09] MEDS ORDERED: HYDROXYUREA 500 MG PO SCH (09:30)
[2024-06-09] MEDS: Verapamil 180 MG Tab.ER PO SCH (09:41)
[2024-06-09] MEDS: HYDROXYUREA 500 MG PO SCH (09:42)
[2024-06-09 11:51] VITALS: BP 150/62; PULSE 64
[2024-06-10] MEDS ORDERED: HYDROXYUREA 500 MG PO SCH (09:00)
== END 2024-06-09 13:04 | disposition home or self-care (01) | DRG 690 ==
LOC: JP.ED 14:35 → JP.MS 19:19
PROVIDERS: ADMIT Internal Medicine; ATTEND Internal Medicine
DX: R41.0 Disorientation, unspecified (principal); N30.01 Acute cystitis with hematuria; N30.00 Acute cystitis without hematuria; I13.0 Hypertensive heart and chronic kidney disease with heart failure and stage 1 through stage 4 chronic kidney disease, or unspecified chronic kidney disease; I25.10 Atherosclerotic heart disease of native coronary artery without angina pectoris; N18.9 Chronic kidney disease, unspecified; E11.42 Type 2 diabetes mellitus with diabetic polyneuropathy; E11.9 Type 2 diabetes mellitus without complications; I50.9 Heart failure, unspecified; E78.00 Pure hypercholesterolemia, unspecified; K59.09 Other constipation; K21.9 Gastro-esophageal reflux disease without esophagitis; M79.7 Fibromyalgia; Z79.890 Hormone replacement therapy; E03.9 Hypothyroidism, unspecified; E66.9 Obesity, unspecified; Z68.33 Body mass index [BMI] 33.0-33.9, adult; I48.91 Unspecified atrial fibrillation; E11.22 Type 2 diabetes mellitus with diabetic chronic kidney disease; G47.31 Primary central sleep apnea; M10.9 Gout, unspecified; H91.90 Unspecified hearing loss, unspecified ear; H54.7 Unspecified visual loss; Z86.73 Personal history of transient ischemic attack (TIA), and cerebral infarction without residual deficits; Z86.16 Personal history of COVID-19; Z88.8 Allergy status to other drugs, medicaments and biological substances; Z88.5 Allergy status to narcotic agent; Z79.82 Long term (current) use of aspirin; Z79.899 Other long term (current) drug therapy; Z79.4 Long term (current) use of insulin; Z79.01 Long term (current) use of anticoagulants; Z95.0 Presence of cardiac pacemaker; Z87.01 Personal history of pneumonia (recurrent); Z95.5 Presence of coronary angioplasty implant and graft; Z87.19 Personal history of other diseases of the digestive system; Z87.81 Personal history of (healed) traumatic fracture; Z85.05 Personal history of malignant neoplasm of liver; Z90.89 Acquired absence of other organs; Z98.890 Other specified postprocedural states; Z90.49 Acquired absence of other specified parts of digestive tract; Z91.148 Patient's other noncompliance with medication regimen for other reason; Z86.718 Personal history of other venous thrombosis and embolism; Z68.32 Body mass index [BMI] 32.0-32.9, adult
CPT/HCPCS: 36415; 70450; 70450-26; 80053; 80162; 81001; 82947; 84443; 85025; 87086; 97161-GP; 99285; A9270-GY; J0696; J1815; J1815-GY; J3490; J7030

== ENCOUNTER 2024-06-19 08:44 | Emergency (ER) | payer MEDICARE ==
[2024-06-19 08:54] LABS: BASOPHILS ABSOLUTE AUTO 0.03 K/uL (0.00-0.10); BASOPHILS PERCENT AUTO 0.2 % (0.1-1.3); EOSINOPHILS ABSOLUTE AUTO 0.04 K/uL (0.00-0.40); EOSINOPHILS PERCENT AUTO 0.2 % (0.0-5.4); HEMATOCRIT 36.6 % (34.3-46.0); HEMOGLOBIN 13.5 g/dL (11.2-15.5); IMMATURE GRAN ABSOLUTE AUTO 0.18 K/uL (0.00-0.23); IMMATURE GRAN PERCENT AUTO 1.1 % (0.0-0.7); LYMPHOCYTES ABSOLUTE AUTO 0.38 K/uL (0.8-3.3); LYMPHOCYTES PERCENT AUTO 2.4 % (11.4-47.7); MEAN CORPUSCULAR HEMOGLOBIN 42.5 pg (31.6-35.5); MEAN CORPUSCULAR HGB CONC 36.9 g/dL (31.6-35.5); MEAN CORPUSCULAR VOLUME 115.1 fL (81.4-99.0); MONOCYTES ABSOLUTE AUTO 0.57 K/uL (0.20-0.90); MONOCYTES PERCENT AUTO 3.5 % (3.3-12.6); NEUTROPHILS ABSOLUTE AUTO 14.92 K/uL (1.0-7.6); NEUTROPHILS PERCENT AUTO 92.6 % (40.0-78.1); PLATELET COUNT,PLT 332 K/uL (130-375); RED BLOOD CELL COUNT 3.18 M/uL (3.77-5.24); WHITE BLOOD CELL COUNT,WBC 16.1 K/uL (3.2-11.0)
[2024-06-19 09:12] LABS: INR 1.4; PROTHROMBIN TIME 13.7 sec (9.2-10.6); PTT,PARTIAL THROMBOPLSTIN TIME 38.1 sec (21.8-27.3)
[2024-06-19 09:16] LABS: A/G RATIO 0.7 (1.2-2.2); ALANINE AMINOTRANSFERASE,ALT 21 U/L (12-78); ALBUMIN 2.8 g/dL (3.4-5.0); ALKALINE PHOSPHATASE 141 U/L (46-116); ANION GAP 12.9 mmol/L (5.0-14.0); ASPARTATE AMNIOTRANSFERASE,AST 29 U/L (15-37); BILIRUBIN TOTAL 0.5 mg/dL (0.2-1.0); BLOOD UREA NITROGEN,BUN 31 mg/dL (7-18); CALCIUM 9.3 mg/dL (8.5-10.1); CARBON DIOXIDE,CO2 29 mmol/L (21-32); CHLORIDE,CL 98 mmol/L (100-108); CREATININE 1.7 mg/dL (0.6-1.0); ESTIMATED GFR 31 mL/min (>60); GLUCOSE RANDOM 138 mg/dL (74-106); POTASSIUM,K 4.9 mmol/L (3.6-5.2); PROTEIN TOTAL,TP 6.6 g/dL (6.4-8.2); SODIUM,NA 135 mmol/L (140-148); TROPONIN I HIGH SENSITIVITY 17.4 pg/mL (<=60.3)
[2024-06-19 09:54] LABS: APPEARANCE,URINE SLIGHTLY CLOUDY (CLEAR); BILIRUBIN,URINE SMALL (NEGATIVE); COLOR,URINE YELLOW (YELLOW); GLUCOSE,URINE NEGATIVE (NEGATIVE); KETONES,URINE TRACE mg/dL (NEGATIVE); LEUKOCYTE ESTERASE,URINE NEGATIVE (NEGATIVE); NITRITE,URINE NEGATIVE (NEGATIVE); OCCULT BLOOD,URINE NEGATIVE (NEGATIVE); PH,URINE 5.5 (5.0-8.0); PROTEIN,URINE NEGATIVE (NEGATIVE); UROBILINOGEN,URINE 0.2 EU/dL (0.2-1.0)
[2024-06-19 09:58] LABS: RBC,URINE 0-5 (0-5); WBC,URINE 0-5 (0-5)
[2024-06-19 09:59] LABS: AMORPHOUS SEDIMENT,URINE RARE; BACTERIA,URINE RARE; EPITHELIAL CELLS,URINE RARE; MUCUS,URINE RARE
[2024-06-19] MEDS: Midazolam 1 MG/ML 2 ML SDV IVPUSH ONE (10:12)
[2024-06-19] MEDS ORDERED: Rocuronium 50 MG/5 ML Vial ONE (10:12)
[2024-06-19] MEDS ORDERED: Propofol 200 MG/20 ML SDV ONE (10:12)
[2024-06-19 10:36] VITALS: BP 140/60; PULSE 78
[2024-06-19] MEDS: Sodium Chloride 0.9% 1,000 ML IV ONE (11:07)
== END 2024-06-19 10:30 ==
LOC: JP.ED 08:44
DX: I63.89 Other cerebral infarction (principal); I13.0 Hypertensive heart and chronic kidney disease with heart failure and stage 1 through stage 4 chronic kidney disease, or unspecified chronic kidney disease; I50.9 Heart failure, unspecified; N18.9 Chronic kidney disease, unspecified; I25.10 Atherosclerotic heart disease of native coronary artery without angina pectoris; E66.9 Obesity, unspecified; E11.9 Type 2 diabetes mellitus without complications; E03.9 Hypothyroidism, unspecified; Z88.5 Allergy status to narcotic agent; Z88.8 Allergy status to other drugs, medicaments and biological substances; Z79.82 Long term (current) use of aspirin; Z79.4 Long term (current) use of insulin; Z79.890 Hormone replacement therapy; Z79.899 Other long term (current) drug therapy; Z86.16 Personal history of COVID-19; Z90.49 Acquired absence of other specified parts of digestive tract; Z68.28 Body mass index [BMI] 28.0-28.9, adult
CPT/HCPCS: 31500; 36415; 43752; 51702; 70450; 71045; 71045-26; 80053; 81001; 83735; 84484; 85025; 85610; 85730; 93005; 93010; 96374; 99285; 99291-25; 99292; J2250; J2704; J3490; J7030

== ENCOUNTER 2024-12-01 12:27 | Emergency (ER) | payer MEDICARE ==
[2024-12-01 13:29] LABS: APPEARANCE,URINE CLEAR (CLEAR); BILIRUBIN,URINE MODERATE (NEGATIVE); COLOR,URINE YELLOW (YELLOW); GLUCOSE,URINE NEGATIVE (NEGATIVE); KETONES,URINE NEGATIVE (NEGATIVE); LEUKOCYTE ESTERASE,URINE NEGATIVE (NEGATIVE); NITRITE,URINE NEGATIVE (NEGATIVE); OCCULT BLOOD,URINE NEGATIVE (NEGATIVE); PH,URINE 5.5 (5.0-8.0); PROTEIN,URINE 100 mg/dL (NEGATIVE); UROBILINOGEN,URINE 0.2 EU/dL (0.2-1.0)
[2024-12-01 13:51] LABS: AMORPHOUS SEDIMENT,URINE MANY; BACTERIA,URINE MANY; EPITHELIAL CELLS,URINE MODERATE; MUCUS,URINE NOT SEEN; RBC,URINE 0-5 (0-5); WBC,URINE 0-5 (0-5)
[2024-12-01 14:09] LABS: BASOPHILS ABSOLUTE AUTO 0.03 K/uL (0.00-0.10); BASOPHILS PERCENT AUTO 0.4 % (0.1-1.3); EOSINOPHILS ABSOLUTE AUTO 0.61 K/uL (0.00-0.40); EOSINOPHILS PERCENT AUTO 8.5 % (0.0-5.4); HEMATOCRIT 35.7 % (34.3-46.0); HEMOGLOBIN 12.7 g/dL (11.2-15.5); IMMATURE GRAN ABSOLUTE AUTO 0.07 K/uL (0.00-0.23); MEAN CORPUSCULAR HGB CONC 35.6 g/dL (31.6-35.5); MEAN CORPUSCULAR VOLUME 109.5 fL (81.4-99.0); MONOCYTES ABSOLUTE AUTO 0.61 K/uL (0.20-0.90); MONOCYTES PERCENT AUTO 8.5 % (3.3-12.6); NEUTROPHILS ABSOLUTE AUTO 5.34 K/uL (1.0-7.6); NEUTROPHILS PERCENT AUTO 74.6 % (40.0-78.1); PLATELET COUNT,PLT 179 K/uL (130-375); RED BLOOD CELL COUNT 3.26 M/uL (3.77-5.24); WHITE BLOOD CELL COUNT,WBC 7.2 K/uL (3.2-11.0)
[2024-12-01 14:25] LABS: CALCIUM 8.9 mg/dL (8.5-10.1); CREATININE 1.4 mg/dL (0.6-1.0); EST CRCL DRUG DOSING (CG) 29.52 mL/min; POTASSIUM,K 4.1 mmol/L (3.6-5.2)
[2024-12-01 14:36] LABS: ANION GAP 11.1 mmol/L (5.0-14.0)
[2024-12-01 15:21] VITALS: BP 106/60; PULSE 71
== END 2024-12-01 15:55 | disposition home or self-care (01) ==
LOC: JP.ED 12:27
DX: R41.0 Disorientation, unspecified (principal); I13.0 Hypertensive heart and chronic kidney disease with heart failure and stage 1 through stage 4 chronic kidney disease, or unspecified chronic kidney disease; I50.9 Heart failure, unspecified; N18.9 Chronic kidney disease, unspecified; I25.10 Atherosclerotic heart disease of native coronary artery without angina pectoris; E11.22 Type 2 diabetes mellitus with diabetic chronic kidney disease; E03.9 Hypothyroidism, unspecified; E66.9 Obesity, unspecified; Z90.49 Acquired absence of other specified parts of digestive tract; Z79.82 Long term (current) use of aspirin; Z79.899 Other long term (current) drug therapy; Z79.4 Long term (current) use of insulin; Z79.890 Hormone replacement therapy; Z95.0 Presence of cardiac pacemaker; Z79.01 Long term (current) use of anticoagulants; Z88.5 Allergy status to narcotic agent; Z88.6 Allergy status to analgesic agent; Z88.8 Allergy status to other drugs, medicaments and biological substances
CPT/HCPCS: 36415; 70450; 70450-26; 80048; 81001; 85025; 99284; 99285

== ENCOUNTER 2024-12-17 18:20 | Emergency (ER) | payer MEDICARE ==
[2024-12-17 18:38] VITALS: BP 173/60; PULSE 74
[2024-12-17 18:53] LABS: APPEARANCE,URINE SLIGHTLY CLOUDY (CLEAR); BILIRUBIN,URINE NEGATIVE (NEGATIVE); COLOR,URINE YELLOW (YELLOW); GLUCOSE,URINE NEGATIVE (NEGATIVE); KETONES,URINE NEGATIVE (NEGATIVE); LEUKOCYTE ESTERASE,URINE TRACE (NEGATIVE); NITRITE,URINE POSITIVE (NEGATIVE); OCCULT BLOOD,URINE TRACE-INTACT (NEGATIVE); PROTEIN,URINE 30 mg/dL (NEGATIVE)
[2024-12-17 19:01] LABS: AMORPHOUS SEDIMENT,URINE NOT SEEN; BACTERIA,URINE MODERATE; EPITHELIAL CELLS,URINE RARE; MUCUS,URINE NOT SEEN
[2024-12-17] MEDS: cefTRIAXone 1 GM, Lidocaine 1% 2.1 ML IM ONE (19:50)
== END 2024-12-17 20:09 | disposition home or self-care (01) ==
LOC: JP.ED 18:20
DX: N39.0 Urinary tract infection, site not specified (principal); I13.0 Hypertensive heart and chronic kidney disease with heart failure and stage 1 through stage 4 chronic kidney disease, or unspecified chronic kidney disease; I50.9 Heart failure, unspecified; N18.9 Chronic kidney disease, unspecified; I25.10 Atherosclerotic heart disease of native coronary artery without angina pectoris; E11.40 Type 2 diabetes mellitus with diabetic neuropathy, unspecified; E11.22 Type 2 diabetes mellitus with diabetic chronic kidney disease; E03.9 Hypothyroidism, unspecified; E66.9 Obesity, unspecified; Z90.49 Acquired absence of other specified parts of digestive tract; Z79.82 Long term (current) use of aspirin; Z79.899 Other long term (current) drug therapy; Z79.4 Long term (current) use of insulin; Z79.01 Long term (current) use of anticoagulants; Z79.890 Hormone replacement therapy; Z88.5 Allergy status to narcotic agent; Z88.6 Allergy status to analgesic agent; Z88.8 Allergy status to other drugs, medicaments and biological substances; Z68.34 Body mass index [BMI] 34.0-34.9, adult
CPT/HCPCS: 81001; 87086; 87088; 87186; 99283; 99284; J0696; J2003

== ENCOUNTER 2025-07-04 18:48 | Emergency (ER) | payer MEDICARE ==
[2025-07-04 20:28] LABS: BASOPHILS PERCENT AUTO 0.1 % (0.1-1.3); EOSINOPHILS PERCENT AUTO 0.2 % (0.0-5.4); IMMATURE GRAN ABSOLUTE AUTO 0.07 K/uL (0.00-0.23); IMMATURE GRAN PERCENT AUTO 0.8 % (0.0-0.7); LYMPHOCYTES ABSOLUTE AUTO 0.42 K/uL (0.8-3.3); LYMPHOCYTES PERCENT AUTO 4.8 % (11.4-47.7); MONOCYTES ABSOLUTE AUTO 0.72 K/uL (0.20-0.90); MONOCYTES PERCENT AUTO 8.2 % (3.3-12.6); NEUTROPHILS ABSOLUTE AUTO 7.50 K/uL (1.0-7.6); NEUTROPHILS PERCENT AUTO 85.9 % (40.0-78.1); PLATELET COUNT,PLT 293 K/uL (130-375); RED BLOOD CELL COUNT 2.94 M/uL (3.77-5.24); WHITE BLOOD CELL COUNT,WBC 8.7 K/uL (3.2-11.0)
[2025-07-04 20:40] LABS: BASOPHILS ABSOLUTE AUTO 0.01 K/uL (0.00-0.10); EOSINOPHILS ABSOLUTE AUTO 0.02 K/uL (0.00-0.40)
[2025-07-04 20:43] LABS: BLOOD UREA NITROGEN,BUN 32.0 mg/dL (7-18); CARBON DIOXIDE,CO2 23.0 mmol/L (21-32); CHLORIDE,CL 102.0 mmol/L (100-108); CREATININE 1.5 mg/dL (0.6-1.0); EST CRCL DRUG DOSING (CG) 28.71 mL/min; ESTIMATED GFR 36.0 mL/min (>60); GLUCOSE RANDOM 179.0 mg/dL (74-106); POTASSIUM,K 3.7 mmol/L (3.6-5.2); SODIUM,NA 136.0 mmol/L (140-148)
[2025-07-04 21:24] LABS: APPEARANCE,URINE TURBID (CLEAR); GLUCOSE,URINE NEGATIVE (NEGATIVE); OCCULT BLOOD,URINE MODERATE (NEGATIVE)
[2025-07-04 21:35] LABS: SQUAMOUS EPITHELIAL CELLS,UR RARE /HPF; UROTHELIAL CELLS,URINE NOT SEEN /HPF
[2025-07-04 22:11] VITALS: BP 157/95; PULSE 85
== END 2025-07-04 23:20 | disposition home or self-care (01) ==
LOC: JP.ED 18:48
DX: S01.81XA Laceration without foreign body of other part of head, initial encounter (principal); N30.00 Acute cystitis without hematuria; E03.9 Hypothyroidism, unspecified; E66.9 Obesity, unspecified; E11.40 Type 2 diabetes mellitus with diabetic neuropathy, unspecified; G89.29 Other chronic pain; I25.10 Atherosclerotic heart disease of native coronary artery without angina pectoris; I50.9 Heart failure, unspecified; E78.00 Pure hypercholesterolemia, unspecified; I11.0 Hypertensive heart disease with heart failure; Z88.6 Allergy status to analgesic agent; Z88.5 Allergy status to narcotic agent; Z88.8 Allergy status to other drugs, medicaments and biological substances; Z79.01 Long term (current) use of anticoagulants; Z95.0 Presence of cardiac pacemaker; Z86.73 Personal history of transient ischemic attack (TIA), and cerebral infarction without residual deficits; Z79.899 Other long term (current) drug therapy; Z79.4 Long term (current) use of insulin; Z79.890 Hormone replacement therapy; Z86.16 Personal history of COVID-19; Z90.49 Acquired absence of other specified parts of digestive tract; W01.0XXA Fall on same level from slipping, tripping and stumbling without subsequent striking against object, initial encounter; Y92.009 Unspecified place in unspecified non-institutional (private) residence as the place of occurrence of the external cause
CPT/HCPCS: 36415; 70450; 72125; 76377; 80048; 81001; 85025; 87086; 87088; 87186; 99283; 99284